=== PATIENT | male | born 1945 | race Caucasian/White ===

== ENCOUNTER → 2017-06-17 15:06 | Outpatient (POV) | payer MEDICARE, MEDICAID, SELFPAY | PROVIDERS: PCP Family Medicine; Visit Provider Internal Medicine | DX: Z00.00 Encounter for general adult medical examination without abnormal findings (principal) ==

== ENCOUNTER → 2017-07-15 12:08 | Outpatient (CLI) | payer MEDICARE, MEDICAID, SELFPAY ==
[2017-07-15 15:28] LABS: Basophils # 0.1 K/mm3 (0-0.2); Basophils % 0.8 % (0.1-2.0); Eosinophils # 0.1 K/mm3 (0.0-0.4); Hematocrit 50.8 % (42.0-52.0); Hemoglobin 16.1 g/dL (14.1-18.0); Lymphocytes % 32.5 K/mm3 (10-50); Mean Corpuscular HGB Conc 31.8 g/dL (31.8-35.4); Mean Corpuscular Hemoglobin 25.9 pg (27.0-31.2); Mean Corpuscular Volume 81.6 fl (80-94); Mean Platelet Volume 9.3 fl (7.4-10.4); Monocytes # 0.5 K/mm3 (0.1-1.0); Monocytes % 7.8 % (1.7-9.3); Neutrophils # 3.5 K/mm3 (1.8-7.8); Platelet Count 192 K/mm3 (142-424); Red Blood Count 6.23 M/mm3 (4.60-6.20); Red Cell Distribution Width 14.2 % (11.5-17.5)
[2017-07-15 16:26] LABS: Alanine Aminotransferase 52 U/L (12-78); Albumin Level 3.8 gm/dL (3.4-5.0); Alkaline Phosphatase 71 U/L (46-116); Anion Gap 11.5 mEq/L (5-15); Aspartate Amino Transferase 14 U/L (15-37); Bilirubin,Direct 0.1 mg/dL (0.0-0.2); Bilirubin,Total 0.5 mg/dL (0.2-1.0); Carbon Dioxide 29 mmol/L (21.0-32.0); Chloride 102 mmol/L (98-107); Chol/HDL Ratio 4.5 (1-3.5); Cholesterol 153 mg/dL (140-200); HDL Cholesterol 34 mg/dL (27-67); LDL Cholesterol 93 mg/dL (0-130); Potassium 4.5 mmoL/L (3.5-5.1); Prostate Specific Ag Screen 1.3 ng/mL (0.0-4.0); Sodium 138 mmol/L (136-145); Total Protein,Serum 7.3 gm/dL (6.4-8.2); Triglycerides 129 mg/dL (30-200); VLDL Cholesterol 26 mg/dL (0-40)
== END ==
PROVIDERS: Visit Provider Family Medicine
DX: I10 Essential (primary) hypertension (principal); E11.9 Type 2 diabetes mellitus without complications; R63.5 Abnormal weight gain; Z12.5 Encounter for screening for malignant neoplasm of prostate
CPT/HCPCS: 36415; 80051; 80061; 80076; 85025; G0103

== ENCOUNTER → 2017-09-04 15:48 | Outpatient (CLI) | payer MEDICARE, MEDICAID, SELFPAY ==
[2017-09-04 18:18] LABS: Anion Gap 12.3 mEq/L (5-15); Blood Urea Nitrogen 19 mg/dL (7-18); Carbon Dioxide 28 mmol/L (21.0-32.0); Chloride 107 mmol/L (98-107); Creatinine,Serum 1.07 mg/dL (0.70-1.30); Estimated Glomerular Filt Rate 68 ml/min (>60); GFR (African American) 82 ML/MIN (>60); Glucose 121 mg/dL (74-106); Potassium 4.3 mmoL/L (3.5-5.1); Sodium 143 mmol/L (136-145)
== END ==
PROVIDERS: Visit Provider Internal Medicine Cardiovascular Disease
DX: I25.10 Atherosclerotic heart disease of native coronary artery without angina pectoris (principal)
CPT/HCPCS: 36415; 80048

== ENCOUNTER → 2017-09-22 10:13 | Outpatient (CLI) | payer MEDICARE, MEDICAID, SELFPAY ==
--- NOTE | 2017-09-22 10:16 | CA_ITS ---
PROCEDURE: 2-D M-mode and color Doppler study INDICATIONS FOR THE TEST: Chest pain COPDX Heart Murmur Tobacco Smoking Palpitations Fatigue Syncope Edema HypertensionXDiabetes Mellitus Rheumatic Fever SOBXDOEXObesityXHyperlipidemiaX Family History HD Additional History CAD PATIENT INFORMATION HEIGHT: 69 WEIGHT:202 GENDER: Male B/P:136/69 2-D/M-MODE INTERPRETATION: TDS 2DARY TO COPD/BODY HABITUS 2-D MEASUREMENTS OBSERVED VALUES IN CMS Right Ventricular Dimension (RVDd) 2.0 Interventricular Septum (Thickness)(IVsd) 1.2 Left Ventricular Internal Dimensions(LVIDd 5.3 Left Ventricular Posterior Wall (Thickness)(LVPWd) 1.3 Aortic Root 4.7 Aortic Cusp Separation 2.3 Left Atrial Dimensions (LAD) 3.7 2D 1. Left atrium is mildly enlarged, left ventricle is normal size, mild concentric left ventricular hypertrophy, visually estimated ejection fraction 55% with no obvious regional wall motion abnormality, this is technically difficult study because of the patient's factor and poor acoustic windows, endocardial surfaces are poorly visualized. 2. The right atrium and right ventricle are qualitatively mildly enlarged with normal contractility. 3. The aortic valve is minimally thickened and fibrosed leaflet continue to display mobility. 4. The mitral and tricuspid valve leaflets are minimally thickened. 5. The pulmonic valve is poorly visualized. 6. No significant pericardial effusion noted. DOPPLER INTERROGATION: Doppler interrogation of the aortic, mitral and tricuspid valvular presence of mild mitral and tricuspid regurgitation, tricuspid regurgitant jet velocity is insufficient for calculation of the right ventricular systolic pressure, grade 1 diastolic dysfunction seen without tissue Doppler evidence of raised left atrial pressure. CONCLUSION: 1. Technically difficult study because of the patient's factor and poor acoustic windows 2. Mildly enlarged left atrium, normal left ventricular size, mild concentric left ventricular hypertrophy, visually estimated ejection fraction 55% with no obvious regional wall motion abnormality, grade 1 diastolic dysfunction seen without tissue Doppler evidence of raised left atrial pressure. 3. Mild mitral and tricuspid regurgitation 4. No significant pericardial effusion noted.
--- NOTE | 2017-09-22 10:16 | NM_ITS ---
CARDIOLITE SPECT MYOCARDIAL PERFUSION SCAN, REST AND STRESS: EXERCISE STRESS [facility] REVIEW QGS EF AND WALL MOTION EVALUATION: QPS - PERFUSION EVALUATION HISTORY: SOA DOSE: 9.65 mCi technetium 99m mibi intravenously at rest followed by 31.2 mCi technetium 99m mibi following the intravenous ministration of 0.4 mg of Lexiscan. Resting blood pressure is 130/62. Stress blood pressure 126/52. FINDINGS: Ejection fraction is calculated to be 53. Stress images reveal severely decreased activity throughout the entire inferior wall with no change in rest images. 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 Clinical correlation is advised. Normal ejection fraction normal wall motion.
--- NOTE | 2017-09-22 12:42 | HMH.ITSHM ---
EFFIENT ASA FENOFIBRATE GABAPENTIN METFORMIN ATORVASTATIN TAMSULOSIN PRESIVISION ADVAIR
== END ==
PROVIDERS: PCP Family Medicine; Visit Provider Internal Medicine
DX: R06.09 Other forms of dyspnea (principal); I25.10 Atherosclerotic heart disease of native coronary artery without angina pectoris; I10 Essential (primary) hypertension; E78.4 Other hyperlipidemia; R53.83 Other fatigue; J44.9 Chronic obstructive pulmonary disease, unspecified; G47.33 Obstructive sleep apnea (adult) (pediatric)
CPT/HCPCS: 78452; 93017; 93306; A9502; J2785

== ENCOUNTER → 2017-10-07 10:09 | Outpatient (POV) | payer MEDICARE, MEDICAID, SELFPAY | PROVIDERS: PCP Family Medicine; Visit Provider Internal Medicine | DX: Z00.00 Encounter for general adult medical examination without abnormal findings (principal) ==

== ENCOUNTER → 2017-10-14 10:14 | Outpatient (CLI) | payer MEDICARE, MEDICAID, SELFPAY ==
[2017-10-14 11:56] LABS: Alanine Aminotransferase 55 U/L (12-78); Albumin Level 4.1 gm/dL (3.4-5.0); Alkaline Phosphatase 72 U/L (46-116); Anion Gap 15.7 mEq/L (5-15); Aspartate Amino Transferase 20 U/L (15-37); Bilirubin,Direct 0.1 mg/dL (0.0-0.2); Bilirubin,Indirect 0.3 mg/dL (0.0-0.9); Bilirubin,Total 0.4 mg/dL (0.2-1.0); Blood Urea Nitrogen 29 mg/dL (7-18); Carbon Dioxide 26 mmol/L (21.0-32.0); Chloride 103 mmol/L (98-107); Chol/HDL Ratio 5.1 (1-3.5); Cholesterol 157 mg/dL (140-200); Creatinine,Serum 1.23 mg/dL (0.70-1.30); Estimated Glomerular Filt Rate 58 ml/min (>60); GFR (African American) 70 ML/MIN (>60); Glucose 249 mg/dL (74-106); HDL Cholesterol 31 mg/dL (27-67); LDL Cholesterol 93 mg/dL (0-130); Potassium 4.7 mmoL/L (3.5-5.1); Sodium 140 mmol/L (136-145); Total Protein,Serum 7.7 gm/dL (6.4-8.2); Triglycerides 164 mg/dL (30-200); VLDL Cholesterol 33 mg/dL (0-40)
== END ==
PROVIDERS: PCP Family Medicine; Visit Provider Internal Medicine Cardiovascular Disease
DX: I25.10 Atherosclerotic heart disease of native coronary artery without angina pectoris (principal); R06.00 Dyspnea, unspecified; I10 Essential (primary) hypertension; E78.5 Hyperlipidemia, unspecified; Z95.5 Presence of coronary angioplasty implant and graft
CPT/HCPCS: 36415; 80048; 80061; 80076

== ENCOUNTER 2017-10-21 12:53 | Outpatient (RCR) | payer MEDICARE, MEDICAID, SELFPAY | END 2018-08-20 13:25 | disposition home or self-care (01) | LOC: PT 12:53 | PROVIDERS: PCP Family Medicine; Visit Provider Internal Medicine | DX: I25.10 Atherosclerotic heart disease of native coronary artery without angina pectoris (principal); R06.00 Dyspnea, unspecified; I10 Essential (primary) hypertension; E78.5 Hyperlipidemia, unspecified; Z95.5 Presence of coronary angioplasty implant and graft ==

== ENCOUNTER → 2018-01-20 10:40 | Outpatient (POV) | payer MEDICARE, MEDICAID, SELFPAY ==
--- NOTE | 2018-01-20 12:19 | CT_ITS ---
CT chest wo con HISTORY: Chronic respiratory failure, follow-up pulmonary nodule, COPD ITS.REASON: NODULE PROTOCOL ORDERING PHYSICIAN: Arnie Graff MD PATIENT AGE: 72 years COMPARISON: 10/24/2016 Technique: Axial images obtained with sagittal and coronal reformats. All CT scans at the facility use one or more dose reduction, viz: automated exposure control, ma/kV adjustment per patient size (including targeted exams where dose is matched to indication, i.e. head), or iterative reconstruction technique. FINDINGS: No mediastinal or hilar mass evident. Coronary artery calcifications and/or stents are noted. There are small nodes in the mediastinum not significantly changed. No mediastinal or hilar mass or adenopathy is evident. A normal heart size. No evidence of pericardial effusion. No change in the 5 mm noncalcified nodule in the right upper lobe centrally. A small calcified nodules also present in the right upper lobe unchanged. There is stable small calcified nodule left upper lobe and apex. 5 mm noncalcified nodule is present in the left lobe posteriorly unchanged and there is a calcified nodule left upper lobe anteriorly and medially unchanged. No new nodules identified. There is hyperinflation with mild bronchial thickening consistent with obstructive chronic bronchitis with minimal fibrotic changes in the lung bases. No consolidation or collapse. No central obstructing lesions. Upper abdominal images show diverticulosis of the transverse colon and mild fatty liver. Bilateral adrenal nodules are once again noted not significantly changed consistent with adenomas. No acute bony anomalies. IMPRESSION: 1. Overall stable CT appearance of the chest. 2. No change small bilateral pulmonary nodules with obstructive chronic bronchitis 3. No change bilateral adrenal nodules
== END ==
PROVIDERS: PCP Family Medicine; Visit Provider Internal Medicine
DX: R91.1 Solitary pulmonary nodule (principal)
CPT/HCPCS: 71250

== ENCOUNTER → 2018-04-14 13:45 | Outpatient (POV) | payer MEDICARE, MEDICAID, SELFPAY | PROVIDERS: Visit Provider Dermatology | DX: Z00.00 Encounter for general adult medical examination without abnormal findings (principal) ==

== ENCOUNTER → 2018-04-28 10:33 | Outpatient (POV) | payer MEDICARE, MEDICAID, SELFPAY | PROVIDERS: Visit Provider Internal Medicine | DX: Z00.00 Encounter for general adult medical examination without abnormal findings (principal) ==

== ENCOUNTER → 2018-05-04 07:59 | Outpatient (CLI) | payer MEDICARE, MEDICAID, SELFPAY ==
[2018-05-04 08:16] LABS: Basophils # 0.1 K/mm3 (0-0.2); Basophils % 0.8 % (0.1-2.0); Eosinophils # 0.2 K/mm3 (0.0-0.4); Eosinophils % 2.6 % (0.1-12.0); Hematocrit 47.8 % (42.0-52.0); Hemoglobin 15.3 g/dL (14.1-18.0); Lymphocytes # 2.2 K/mm3 (0.7-4.5); Mean Corpuscular Hemoglobin 26.9 pg (27.0-31.2); Mean Corpuscular Volume 84.1 fl (80-94); Mean Platelet Volume 8.2 fl (7.4-10.4); Monocytes # 0.6 K/mm3 (0.1-1.0); Monocytes % 7.5 % (1.7-9.3); Neutrophils # 4.5 K/mm3 (1.8-7.8); Neutrophils % 60.1 % (37.0-80.0); Platelet Count 224 K/mm3 (142-424); Red Blood Count 5.69 M/mm3 (4.60-6.20); Red Cell Distribution Width 14.6 % (11.5-17.5); White Blood Count 7.4 K/mm3 (4.8-10.8)
[2018-05-04 08:48] LABS: Hemoglobin A1C 5.8 % (0.0-7.0)
[2018-05-04 08:57] LABS: Alanine Aminotransferase 33 U/L (12-78); Albumin Level 3.9 gm/dL (3.4-5.0); Alkaline Phosphatase 51 U/L (46-116); Anion Gap 11.2 mEq/L (5-15); Aspartate Amino Transferase 17 U/L (15-37); Bilirubin,Direct 0.1 mg/dL (0.0-0.2); Bilirubin,Indirect 0.2 mg/dL (0.0-0.9); Bilirubin,Total 0.3 mg/dL (0.2-1.0); Blood Urea Nitrogen 23 mg/dL (7-18); Calcium 8.9 mg/dL (8.5-10.1); Carbon Dioxide 27 mmol/L (21.0-32.0); Chloride 107 mmol/L (98-107); Cholesterol 136 mg/dL (140-200); Creatinine,Serum 1.19 mg/dL (0.70-1.30); Estimated Glomerular Filt Rate 60 ml/min (>60); Free Thyroxine Index 1.9 ug/dL (5.93-13.13); GFR (African American) 72 ML/MIN (>60); Glucose 112 mg/dL (74-106); HDL Cholesterol 34 mg/dL (27-67); LDL Cholesterol 75 mg/dL (0-130); Potassium 4.2 mmoL/L (3.5-5.1); Prostate Specific Ag, Diagnost 0.94 ng/mL (0.0-4.0); Sodium 141 mmol/L (136-145); Thyroid Stimulating Hormone 3.12 uIU/ml (0.358-3.740); Total Protein,Serum 7.3 gm/dL (6.4-8.2); Triglycerides 134 mg/dL (30-200); Triiodothryronine (T3) Uptake 32 % (31-39); VLDL Cholesterol 27 mg/dL (0-40)
== END ==
PROVIDERS: Visit Provider Internal Medicine Cardiovascular Disease
DX: R07.9 Chest pain, unspecified (principal); R06.09 Other forms of dyspnea; I25.10 Atherosclerotic heart disease of native coronary artery without angina pectoris; I10 Essential (primary) hypertension; E78.5 Hyperlipidemia, unspecified; J44.9 Chronic obstructive pulmonary disease, unspecified; E11.9 Type 2 diabetes mellitus without complications; Z79.84 Long term (current) use of oral hypoglycemic drugs
CPT/HCPCS: 36415; 80048; 80061; 80076; 83036; 84153; 84436; 84443; 84479; 85025

== ENCOUNTER → 2018-06-01 16:10 | Outpatient (CLI) | payer MEDICARE, MEDICAID, SELFPAY ==
[2018-06-01 17:05] LABS: Basophils # 0.1 K/mm3 (0-0.2); Basophils % 1.6 % (0.1-2.0); Eosinophils # 1.1 K/mm3 (0.0-0.4); Eosinophils % 12.6 % (0.1-12.0); Hematocrit 45.2 % (42.0-52.0); Hemoglobin 14.6 g/dL (14.1-18.0); Lymphocytes # 2.3 K/mm3 (0.7-4.5); Lymphocytes % 26.9 % (10-50); Mean Corpuscular HGB Conc 32.2 g/dL (31.8-35.4); Mean Corpuscular Hemoglobin 26.7 pg (27.0-31.2); Mean Corpuscular Volume 82.8 fl (80-94); Mean Platelet Volume 8.3 fl (7.4-10.4); Monocytes # 0.4 K/mm3 (0.1-1.0); Neutrophils # 4.6 K/mm3 (1.8-7.8); Platelet Count 231 K/mm3 (142-424); Red Blood Count 5.46 M/mm3 (4.60-6.20); Red Cell Distribution Width 14.8 % (11.5-17.5); White Blood Count 8.6 K/mm3 (4.8-10.8)
[2018-06-01 19:26] LABS: Alanine Aminotransferase 34 U/L (12-78); Albumin Level 3.9 gm/dL (3.4-5.0); Albumin/Globulin Ratio 1.2 (1.1-1.8); Alkaline Phosphatase 57 U/L (46-116); Anion Gap 16.3 mEq/L (5-15); Aspartate Amino Transferase 21 U/L (15-37); Bilirubin,Total 0.3 mg/dL (0.2-1.0); Blood Urea Nitrogen 16 mg/dL (7-18); Calcium 9.2 mg/dL (8.5-10.1); Carbon Dioxide 24 mmol/L (21.0-32.0); Chloride 106 mmol/L (98-107); Creatinine,Serum 1.13 mg/dL (0.70-1.30); Estimated Glomerular Filt Rate 63 ml/min (>60); GFR (African American) 77 ML/MIN (>60); Globulin 3.3 gm/dl (1.3-3.2); Glucose 125 mg/dL (74-106); Potassium 4.3 mmoL/L (3.5-5.1); Sodium 142 mmol/L (136-145); Total Protein,Serum 7.2 gm/dL (6.4-8.2)
== END ==
PROVIDERS: Visit Provider Otolaryngology
DX: K11.1 Hypertrophy of salivary gland (principal)
CPT/HCPCS: 36415; 80053; 85025

== ENCOUNTER → 2018-06-05 10:34 | Outpatient (CLI) | payer MEDICARE, MEDICAID, SELFPAY ==
--- NOTE | 2018-06-05 10:36 | CT_ITS ---
CT soft tissue neck w con Ordering Physician: Warern Medrano MD Patient Age: 72 years: Male HISTORY: ITS.Palpable mass right neck noted 3 weeks. No pain: Knot on right side of neck TECHNIQUE: Helical CT scanning performed through the neck following 75 cc Isovue-370 .. Axial sagittal and coronal reconstructions performed on CT workstation. All CT scans at this facility used one or more dose reduction techniques , viz: automatic exposure control, ma/Kv adjustment per patient's size, (including targeted exam where dose matched to the indication; i.e. head); or iterative reconstruction technique COMPARISON :No prior neck studies CT chest January 2018 & October 2016. Includes base of neck FINDINGS The palpable mass corresponds with a 3 cm AP, 4.4 cm length x 2.6 cm transverse discrete mass posterior the right submandibular gland, just below the angle of mandible. There is a thin enhancing margin of this solid mass.It does does yield mass effect indenting the posterior margin of the submandibular gland but favor is separate from it.- I doubt that the mass arises from the submandibular.This mass just lateral posterior tip of the hyoid on right. It is lateral and separate separate from carotid bifurcations. Calcified plaque seen at the carotid bifurcations bilaterally with generous calcified plaque continuing to the origin of right and left IAC. High-grade flow-limiting stenosis, estimated 90% stenosis at origin right ICA. ., (Sagittal image 25 axial 52-56) Tiny Patent lumen measures only 1 mm diameter axial image 54., Left bifurcation and ICA with calcified plaque present 50-60% stenosis at the left ICA. Mild Asymmetry & relative fullness at the base the tongue to the right extending down to the right healed asymmetry at right vallecula.-as noted on axial image 50, coronal image 23.. This would benefit from correlation & direct visualization by ENT. Although could reflect slightly asymmetric lymphoid tissue, at lingual tonsil cannot exclude associated pathology. Also question some mild asymmetry towards the right perinephric space at this same region. Axial image 43, 42. Otherwise only some small unimpressive scattered nodes are seen throughout the neck. Bilateral. Prominent facet hypertrophy to right at C2/3 Mild dextroscoliosis with Prominent multilevel degenerative changes and spondylosis throughout cervical spine. C2/3Prominent facet hypertrophy to right at C2/3 C3/4. Mild with mild bilateral Luschka joint hypertrophy most evident to the right. Mild right foraminal encroachment more so on the left. C 4/5. Marked disc space narrowing and osteophytic spurring posteriorly posterior right. Spinal stenosis and bilateral foraminal encroachment right greater than left. Also at C5/6 at C6/7 marked disc space narrowing. The posterior Disc/osteophyte features yield mild central canal stenosis and bilateral foraminal encroachment. . Chronic changes at the lung apices left more so than right. IMPRESSION: - 1. *Large discrete mass posterior to the right submandibular gland. Measures up to 4.4 cm in length. Well-defined with thin enhancing margin 2. Mild fullness at the base the tongue to the right yield mild asymmetry of vallecula. Generous lingual tonsil lymphoid tissue versus associated pathology. Warrants direct visualization 3.* High-grade right ICA carotid stenosis. Estimated over 90% stenosis right ICA origin Suggest duplex Doppler to support 4. Prominent cervical spondylosis & Degenerative disc changes. Yield multilevel spinal stenosis, most notable at C6/7 & C4/5
== END ==
PROVIDERS: PCP Family Medicine; Visit Provider Otolaryngology
DX: K11.1 Hypertrophy of salivary gland (principal)
CPT/HCPCS: 70491; Q9967

== ENCOUNTER → 2018-06-16 13:46 | Outpatient (CLI) | payer MEDICARE, MEDICAID, SELFPAY ==
--- NOTE | 2018-06-16 | CI_ITS ---
Cerebrovascular Exam Indications: Abnormal ct scan. IMPRESSIONS 1. The bilateral vertebral arteries are patent with normal antegrade flow. 2. Study suggests 50-69% stenosis involving the right internal carotid artery and the left internal carotid artery. Carotid duplex study. Complete study and Doppler flow study including spectral analysis, color and grimm scale imaging. Height: Height: 177.8cm. Height: 70in. Weight: Weight: 87.1kg. Weight: 191.6lb. Body mass index: BMI: 27.5kg/m^2. Body surface area: BSA: 2.09m^2. Location: Vascular laboratory. Patient status: Outpatient. CRITICAL FINDINGS - Reported to: Dr. Newby - Read back and verified. - 06/16/18 - 1415 - 50-69% bilateral.. Tables: Arterial flow: + +--------+--------+ Location V sys V ed + +--------+--------+ Right CCA - proximal 124cm/s 13.4cm/s + +--------+--------+ Right CCA - distal 104cm/s 14.1cm/s + +--------+--------+ Right ECA 188cm/s -------- + +--------+--------+ Right ICA - proximal 225cm/s 87cm/s + +--------+--------+ Right ICA - mid 57.4cm/s 13cm/s + +--------+--------+ Right ICA - distal 59.3cm/s 12.2cm/s + +--------+--------+ Right vertebral 54.2cm/s -------- + +--------+--------+ Left CCA - proximal 113cm/s 25.8cm/s + +--------+--------+ Left CCA - distal 115cm/s 22cm/s + +--------+--------+ Left ECA 129cm/s -------- + +--------+--------+ Left ICA - proximal 166cm/s 50.6cm/s + +--------+--------+ Left ICA - mid 162cm/s 54.1cm/s + +--------+--------+ Left ICA - distal 153cm/s 41cm/s + +--------+--------+ Left vertebral 64.1cm/s -------- + +--------+--------+ Velocity ratios: + + + + + + Right, V sys Right, V ed Left, V sys Left, V ed + + + + + + Max ICA/dist CCA 2.16 6.17 1.44 2.46 + + + + + + (Report amended ) Electronically signed by: Art Rosales [id number]
== END ==
PROVIDERS: PCP Family Medicine; Visit Provider Family Medicine
DX: I65.23 Occlusion and stenosis of bilateral carotid arteries (principal)
CPT/HCPCS: 93880

== ENCOUNTER → 2018-06-22 09:30 | Outpatient (CLI) | payer MEDICARE, MEDICAID, SELFPAY ==
--- NOTE | 2018-06-22 09:34 | US_ITS ---
1. US soft tissue head and neck,: 2. FNA guided biopsy right neck mass: ... FNA w guidance, ... US organ site (neck) Ordering Physician: Warren Medrano MD Patient Age: 72 years: Male HISTORY: 72-yr-old with right: Right NECK MASS COMPARISON :Previous CT neck 06/05/2018. FINDINGS AND PROCEDURE: ULTRASOUND SOFT TISSUE NECK. ULTRASOUND neck.; Large ovoid mass over 4.25 seem in length x 2.6 cm AP identified at the right neck.. Well-defined margins. Resides posterior to the right submandibular gland These images also determined the best approach for access to perform aspiration biopsy of this nodule. Scanning by technologist & Dr. Wong Submandibular glands were surveyed. Limited images here are unremarkable. Right submandibular gland over 4 cm length x2.5 cm AP. Left submandibular gland 3.9 cm cm in length x 2.4 cm AP Parotid glands were surveyed. With limited is here limited but no discrete mass. Left parotid measuring 3.8 cm in length.. ULTRASOUND-GUIDED FNA BIOPSY- RIGHT NECK MASS: Following sterile preparation as well as local skin, and cautious deeper placement of Xylocaine anesthetic ; Under ultrasound guidance the FNA biopsy needle, was advanced to the right neck mass.. Needle tip was observed passing into the nodule on each of multipleFNA biopsies passes. 5 passes were performed sampling slightly different areas of the mass.. FNA specimen material obtained and subsequently submitted to cytopathology. Also fluid for specifically for lymph node evaluation was submitted Patient tolerated procedure well. IMPRESSION: 1.. Prominent ovoid right neck mass measures up to 4.2 cm in length on ultrasound. Well-defined margins. 2. Successful ultrasound-guided FNA biopsy of the mass performed CYTOPATHOLOGY RESULTS:. Positive for malignancy. Squamous Cell Carcinoma.
== END ==
PROVIDERS: PCP Family Medicine; Visit Provider Otolaryngology
DX: R22.1 Localized swelling, mass and lump, neck (principal); G45.1 Carotid artery syndrome (hemispheric); K11.1 Hypertrophy of salivary gland; Z95.5 Presence of coronary angioplasty implant and graft
CPT/HCPCS: 10005; 76536; 87075; 88173; 88305; 88342

== ENCOUNTER 2018-08-11 10:46 | Outpatient (CLI) | payer MEDICARE, MEDICAID, SELFPAY ==
[2018-08-11] VITALS (13 sets, daily range): BP systolic 112–148; BP diastolic 73–88; PULSE 68–76; RESP 20; TEMP 36.8–37.1; O2SAT 95; BMI 27.8
[2018-08-11 11:21] LABS: Basophils # 0.1 K/mm3 (0-0.2); Eosinophils # 0.1 K/mm3 (0.0-0.4); Eosinophils % 1.5 % (0.1-12.0); Hematocrit 45.2 % (42.0-52.0); Lymphocytes # 1.5 K/mm3 (0.7-4.5); Lymphocytes % 26.3 % (10-50); Mean Corpuscular HGB Conc 33.3 g/dL (31.8-35.4); Mean Corpuscular Hemoglobin 27.3 pg (27.0-31.2); Mean Corpuscular Volume 82.1 fl (80-94); Mean Platelet Volume 7.9 fl (7.4-10.4); Monocytes # 0.4 K/mm3 (0.1-1.0); Monocytes % 6.7 % (1.7-9.3); Neutrophils # 3.8 K/mm3 (1.8-7.8); Neutrophils % 64.5 % (37.0-80.0); Platelet Count 231 K/mm3 (142-424); Red Cell Distribution Width 14.7 % (11.5-17.5); White Blood Count 5.9 K/mm3 (4.8-10.8)
[2018-08-11 11:37] LABS: Alanine Aminotransferase 22 U/L (12-78); Albumin/Globulin Ratio 1.1 (1.1-1.8); Alkaline Phosphatase 49 U/L (46-116); Anion Gap 17.1 mEq/L (5-15); Aspartate Amino Transferase 18 U/L (15-37); Bilirubin,Total 0.4 mg/dL (0.2-1.0); Blood Urea Nitrogen 12 mg/dL (7-18); Carbon Dioxide 21 mmol/L (21.0-32.0); Chloride 107 mmol/L (98-107); Creatinine Clearance Estimated 81 mL/min (50-200); Creatinine,Serum 0.97 mg/dL (0.70-1.30); Estimated Glomerular Filt Rate 76 ml/min (>60); GFR (African American) 92 ML/MIN (>60); Globulin 3.7 gm/dl (1.3-3.2); Glucose 99 mg/dL (74-106); Potassium 4.1 mmoL/L (3.5-5.1); Sodium 141 mmol/L (136-145); Total Protein,Serum 7.7 gm/dL (6.4-8.2)
== END 2018-08-11 18:15 | disposition home health service (06) ==
LOC: INF 10:46
PROVIDERS: Visit Provider Internal Medicine Medical Oncology
DX: Z51.11 Encounter for antineoplastic chemotherapy (principal); C76.0 Malignant neoplasm of head, face and neck
CPT/HCPCS: 80053; 85025; 96413; J9060; Q0166

== ENCOUNTER → 2018-08-28 14:02 | Outpatient (CLI) | payer MEDICARE, MEDICAID, SELFPAY ==
[2018-08-28 14:50] LABS: Basophils # 0.1 K/mm3 (0-0.2); Basophils % 0.8 % (0.1-2.0); Eosinophils # 0.1 K/mm3 (0.0-0.4); Eosinophils % 0.9 % (0.1-12.0); Hematocrit 45.2 % (42.0-52.0); Hemoglobin 15.4 g/dL (14.1-18.0); Lymphocytes % 17.6 % (10-50); Mean Corpuscular Hemoglobin 27.6 pg (27.0-31.2); Mean Corpuscular Volume 81.2 fl (80-94); Mean Platelet Volume 7.8 fl (7.4-10.4); Monocytes # 0.5 K/mm3 (0.1-1.0); Neutrophils # 4.2 K/mm3 (1.8-7.8); Neutrophils % 72.7 % (37.0-80.0); Platelet Count 228 K/mm3 (142-424); Red Blood Count 5.57 M/mm3 (4.60-6.20); Red Cell Distribution Width 14.6 % (11.5-17.5); White Blood Count 5.8 K/mm3 (4.8-10.8)
[2018-08-28 15:59] LABS: Alanine Aminotransferase 26 U/L (12-78); Albumin Level 4.2 gm/dL (3.4-5.0); Albumin/Globulin Ratio 1.2 (1.1-1.8); Alkaline Phosphatase 54 U/L (46-116); Anion Gap 16.2 mEq/L (5-15); Aspartate Amino Transferase 18 U/L (15-37); Bilirubin,Total 0.4 mg/dL (0.2-1.0); Blood Urea Nitrogen 25 mg/dL (7-18); Calcium 9.3 mg/dL (8.5-10.1); Carbon Dioxide 24 mmol/L (21.0-32.0); Chloride 103 mmol/L (98-107); Creatinine,Serum 1.21 mg/dL (0.70-1.30); Estimated Glomerular Filt Rate 59 ml/min (>60); GFR (African American) 71 ML/MIN (>60); Globulin 3.4 gm/dl (1.3-3.2); Glucose 110 mg/dL (74-106); Potassium 4.2 mmoL/L (3.5-5.1); Sodium 139 mmol/L (136-145); Total Protein,Serum 7.6 gm/dL (6.4-8.2)
== END ==
PROVIDERS: Visit Provider Internal Medicine Medical Oncology
DX: K11.1 Hypertrophy of salivary gland (principal)
CPT/HCPCS: 36415; 80053; 85025

== ENCOUNTER → 2018-09-04 11:57 | Outpatient (CLI) | payer MEDICARE, MEDICAID, SELFPAY ==
[2018-09-04] VITALS (11 sets, daily range): BP systolic 112–119; BP diastolic 55–78; PULSE 68–72; RESP 20; TEMP 36.9; O2SAT 95–98
== END ==
PROVIDERS: Visit Provider Internal Medicine Medical Oncology
DX: Z51.11 Encounter for antineoplastic chemotherapy (principal); C76.0 Malignant neoplasm of head, face and neck
CPT/HCPCS: 96361; 96413; J9060; Q0166

== ENCOUNTER → 2018-09-15 15:08 | Outpatient (POV) | payer MEDICARE, MEDICAID, SELFPAY | PROVIDERS: Visit Provider Internal Medicine | DX: Z00.00 Encounter for general adult medical examination without abnormal findings (principal) ==

== ENCOUNTER → 2018-09-17 14:39 | Outpatient (CLI) | payer MEDICARE, MEDICAID, SELFPAY ==
[2018-09-17 15:18] LABS: Basophils % 0.6 % (0.1-2.0); Eosinophils # 0.1 K/mm3 (0.0-0.4); Eosinophils % 1.1 % (0.1-12.0); Hematocrit 37.8 % (42.0-52.0); Lymphocytes # 0.7 K/mm3 (0.7-4.5); Lymphocytes % 15.6 % (10-50); Mean Corpuscular HGB Conc 34.3 g/dL (31.8-35.4); Mean Corpuscular Hemoglobin 27.8 pg (27.0-31.2); Mean Corpuscular Volume 80.9 fl (80-94); Mean Platelet Volume 7.8 fl (7.4-10.4); Monocytes # 0.4 K/mm3 (0.1-1.0); Monocytes % 7.8 % (1.7-9.3); Neutrophils # 3.4 K/mm3 (1.8-7.8); Neutrophils % 74.9 % (37.0-80.0); Platelet Count 194 K/mm3 (142-424); Red Blood Count 4.67 M/mm3 (4.60-6.20); Red Cell Distribution Width 14.7 % (11.5-17.5); White Blood Count 4.5 K/mm3 (4.8-10.8)
[2018-09-17 16:16] LABS: Alanine Aminotransferase 26 U/L (12-78); Albumin Level 3.9 gm/dL (3.4-5.0); Albumin/Globulin Ratio 1.2 (1.1-1.8); Alkaline Phosphatase 50 U/L (46-116); Anion Gap 12.4 mEq/L (5-15); Aspartate Amino Transferase 18 U/L (15-37); Bilirubin,Total 0.4 mg/dL (0.2-1.0); Blood Urea Nitrogen 25 mg/dL (7-18); Calcium 9.3 mg/dL (8.5-10.1); Carbon Dioxide 27 mmol/L (21.0-32.0); Chloride 103 mmol/L (98-107); Creatinine,Serum 1.12 mg/dL (0.70-1.30); Estimated Glomerular Filt Rate 64 ml/min (>60); GFR (African American) 78 ML/MIN (>60); Globulin 3.3 gm/dl (1.3-3.2); Glucose 79 mg/dL (74-106); Potassium 4.4 mmoL/L (3.5-5.1); Sodium 138 mmol/L (136-145); Total Protein,Serum 7.2 gm/dL (6.4-8.2)
== END ==
PROVIDERS: Visit Provider Internal Medicine Medical Oncology
DX: C01 Malignant neoplasm of base of tongue (principal)
CPT/HCPCS: 36415; 80053; 85025

== ENCOUNTER → 2018-09-23 07:07 | Outpatient (CLI) | payer MEDICARE, MEDICAID, SELFPAY ==
[2018-09-23] VITALS (7 sets, daily range): BP systolic 112–132; BP diastolic 56–74; PULSE 60–68; RESP 20; TEMP 36.9; O2SAT 95
[2018-09-23 07:33] LABS: Basophils % 0.6 % (0.1-2.0); Eosinophils # 0.1 K/mm3 (0.0-0.4); Eosinophils % 2.3 % (0.1-12.0); Hemoglobin 14.1 g/dL (14.1-18.0); Lymphocytes # 0.8 K/mm3 (0.7-4.5); Lymphocytes % 27.1 % (10-50); Mean Corpuscular HGB Conc 34.3 g/dL (31.8-35.4); Mean Corpuscular Hemoglobin 27.9 pg (27.0-31.2); Mean Corpuscular Volume 81.4 fl (80-94); Mean Platelet Volume 7.8 fl (7.4-10.4); Monocytes # 0.4 K/mm3 (0.1-1.0); Monocytes % 14.2 % (1.7-9.3); Neutrophils # 1.5 K/mm3 (1.8-7.8); Neutrophils % 55.8 % (37.0-80.0); Platelet Count 235 K/mm3 (142-424); Red Blood Count 5.03 M/mm3 (4.60-6.20); Red Cell Distribution Width 15.1 % (11.5-17.5); White Blood Count 2.8 K/mm3 (4.8-10.8)
[2018-09-23 08:02] LABS: Hemoglobin A1C 5.6 % (0.0-7.0)
[2018-09-23 08:25] LABS: Alanine Aminotransferase 27 U/L (12-78); Albumin Level 3.9 gm/dL (3.4-5.0); Albumin/Globulin Ratio 1.1 (1.1-1.8); Alkaline Phosphatase 57 U/L (46-116); Anion Gap 12.3 mEq/L (5-15); Aspartate Amino Transferase 15 U/L (15-37); Bilirubin,Total 0.5 mg/dL (0.2-1.0); Blood Urea Nitrogen 26 mg/dL (7-18); Calcium 9.5 mg/dL (8.5-10.1); Carbon Dioxide 28 mmol/L (21.0-32.0); Chloride 103 mmol/L (98-107); Chol/HDL Ratio 2.7 (1-3.5); Cholesterol 97 mg/dL (140-200); Creatinine,Serum 1.09 mg/dL (0.70-1.30); Estimated Glomerular Filt Rate 66 ml/min (>60); GFR (African American) 80 ML/MIN (>60); Globulin 3.5 gm/dl (1.3-3.2); Glucose 88 mg/dL (74-106); HDL Cholesterol 36 mg/dL (27-67); LDL Cholesterol 41 mg/dL (0-130); Potassium 4.3 mmoL/L (3.5-5.1); Sodium 139 mmol/L (136-145); Total Protein,Serum 7.4 gm/dL (6.4-8.2); Triglycerides 99 mg/dL (30-200); VLDL Cholesterol 20 mg/dL (0-40)
== END ==
PROVIDERS: Family Medicine; Visit Provider Internal Medicine Medical Oncology
DX: Z51.11 Encounter for antineoplastic chemotherapy (principal); C01 Malignant neoplasm of base of tongue; I10 Essential (primary) hypertension; E11.9 Type 2 diabetes mellitus without complications; Z79.84 Long term (current) use of oral hypoglycemic drugs; E78.2 Mixed hyperlipidemia
CPT/HCPCS: 36415; 80053; 80061; 83036; 85025; 96413; J9060; Q0166

== ENCOUNTER 2018-09-30 10:45 | Outpatient (CLI) | payer MEDICARE, MEDICAID, SELFPAY ==
[2018-09-30 10:55] VITALS: BP 131/56; PULSE 62; RESP 18; O2SAT 95
[2018-09-30 11:58] VITALS: BP 139/72; PULSE 68; RESP 18; O2SAT 98
== END 2018-09-30 12:00 | disposition home or self-care (01) ==
LOC: INF 10:59
PROVIDERS: Visit Provider Family Medicine
DX: C02.9 Malignant neoplasm of tongue, unspecified (principal)
CPT/HCPCS: 96360

== ENCOUNTER 2018-10-02 10:25 | Outpatient (CLI) | payer MEDICARE, MEDICAID, SELFPAY ==
[2018-10-02 11:00] VITALS: BP 116/62; PULSE 65; RESP 18; TEMP 36.5; O2SAT 95
[2018-10-02 11:30] VITALS: BP 135/65; PULSE 61; RESP 18
[2018-10-02 12:00] VITALS: BP 124/72; PULSE 60; RESP 18
== END 2018-10-02 12:05 | disposition home or self-care (01) ==
LOC: INF 10:50
PROVIDERS: Visit Provider Internal Medicine Medical Oncology
DX: C02.9 Malignant neoplasm of tongue, unspecified (principal)
CPT/HCPCS: 96360

== ENCOUNTER → 2018-11-18 08:05 | Outpatient (CLI) | payer MEDICARE, MEDICAID, SELFPAY ==
[2018-11-18 10:11] LABS: Anion Gap 12.2 mEq/L (5-15); Blood Urea Nitrogen 20 mg/dL (7-18); Calcium 8.5 mg/dL (8.5-10.1); Carbon Dioxide 26 mmol/L (21.0-32.0); Chloride 107 mmol/L (98-107); Chol/HDL Ratio 5.4 (1-3.5); Cholesterol 179 mg/dL (140-200); Creatinine,Serum 0.88 mg/dL (0.70-1.30); Estimated Glomerular Filt Rate 85 ml/min (>60); GFR (African American) 102 ML/MIN (>60); Glucose 87 mg/dL (74-106); HDL Cholesterol 33 mg/dL (27-67); LDL Cholesterol 119 mg/dL (0-130); Potassium 4.2 mmoL/L (3.5-5.1); Sodium 141 mmol/L (136-145); Triglycerides 135 mg/dL (30-200); VLDL Cholesterol 27 mg/dL (0-40)
[2018-11-18 10:58] LABS: Hemoglobin A1C 5.2 % (0.0-7.0)
== END ==
PROVIDERS: Visit Provider Family Medicine
DX: E11.9 Type 2 diabetes mellitus without complications (principal); Z79.84 Long term (current) use of oral hypoglycemic drugs; E78.2 Mixed hyperlipidemia; I10 Essential (primary) hypertension
CPT/HCPCS: 36415; 80048; 80061; 83036

== ENCOUNTER → 2018-12-01 13:09 | Outpatient (POV) | payer MEDICARE, MEDICAID, SELFPAY | PROVIDERS: Visit Provider Internal Medicine | DX: Z00.00 Encounter for general adult medical examination without abnormal findings (principal) ==

== ENCOUNTER → 2019-01-19 13:03 | Outpatient (CLI) | payer MEDICARE, MEDICAID, SELFPAY ==
--- NOTE | 2019-01-19 13:08 | XR_ITS ---
PROCEDURE: XR RIBS RT MIN 3V W CXR1V CLINICAL INDICATION: RT RIB PAIN COMPARISON: CXR CHEST(2 VIEWS-NOT PORTABLE) from 07/15/2014 CXR CHEST(2 VIEWS-NOT PORTABLE) from 08/23/2015 CXR CHEST(2 VIEWS-NOT PORTABLE) from 03/06/[address] chest wo con from 01/20/2018 FINDINGS: A frontal view of the chest shows no acute finding. There is an old left 7th rib fracture.. Multiple views of the right ribs were obtained. No acute findings. IMPRESSION: No acute finding. Old left 7th rib fracture. Dictated by: Art Rosales MD 01/19/2019 13:56 Signed by: <Electronically signed by Art Rosales MD in [place]> 01/19/2019 13:56
== END ==
PROVIDERS: PCP Family Medicine; Visit Provider Family Medicine
DX: R07.81 Pleurodynia (principal)
CPT/HCPCS: 71101

== ENCOUNTER → 2019-02-09 13:09 | Outpatient (POV) | payer MEDICARE, MEDICAID, SELFPAY | PROVIDERS: Visit Provider Internal Medicine | DX: Z00.00 Encounter for general adult medical examination without abnormal findings (principal) ==

== ENCOUNTER → 2019-03-02 11:50 | Outpatient (CLI) | payer MEDICARE, MEDICAID, SELFPAY ==
[2019-03-02 13:21] LABS: Chol/HDL Ratio 2.4 (1-3.5); Cholesterol 88 mg/dL (140-200); HDL Cholesterol 36 mg/dL (27-67); LDL Cholesterol 32 mg/dL (0-130); Triglycerides 100 mg/dL (30-200); VLDL Cholesterol 20 mg/dL (0-40)
== END ==
PROVIDERS: Visit Provider Family Medicine
DX: E78.2 Mixed hyperlipidemia (principal)
CPT/HCPCS: 36415; 80061

== ENCOUNTER → 2019-07-06 13:01 | Outpatient (CLI) | payer MEDICARE, MEDICAID, SELFPAY ==
--- NOTE | 2019-07-06 13:10 | XR_ITS ---
PROCEDURE: XR CHEST 2V CLINICAL HISTORY: BRONCHITIS COMPARISON: CXR CHEST(2 VIEWS-NOT PORTABLE) from 03/06/[address] chest wo con from 01/20/2018 XR RIBS RT MIN 3V W CXR1V from 01/19/2019 XR CHEST PORTABLE from 06/14/2019 FINDINGS: The cardiomediastinal silhouette and pulmonary vascularity are within normal limits. The lungs are clear without infiltrates, suspicious nodules, or pleural effusions. There is COPD. Subcentimeter nodule like opacities project symmetrically over both lung bases along midclavicular lines likely nipple shadows. They were not seen previously. Old fracture of left posterior 7th rib is noted. No acute bony abnormalities. IMPRESSION: No acute findings. Dictated by: Roland Rubalcava 07/06/2019 14:57 Electronically signed by Roland Rubalcava in [place] 07/06/2019 14:57
== END ==
PROVIDERS: PCP Family Medicine; Visit Provider Family Medicine
DX: J40 Bronchitis, not specified as acute or chronic (principal)
CPT/HCPCS: 71046

== ENCOUNTER 2019-07-16 15:00 | Outpatient (RCR) | payer MEDICARE, MEDICAID, SELFPAY ==
--- NOTE | 2019-05-05 11:54 | HMH.PTOPEV ---
PT Outpatient Evaluation Rehab PT Outpatient Evaluation Start: 05/05/19 11:25 Freq: Status: Active Protocol: Document 05/05/19 11:25 RENETTA (Rec: 05/05/19 11:54 RENETTA [id number]) Electronically Signed By Crow Grijalva, PT 05/05/19 11:25 Outpatient Therapy Subjective History Subjective History Pt presents w/generalized deconditioning secondary to intermediate designer chemo. and radiation treatments, as well as multiple CVA's, COPD, and asthma. Pt reports significant weight loss since beginning cx. treatment in May. Pt also reports chronic neck and LBP, and intermittent episodes of balance disturbances. Chief Complaint Pain,Weakness,Decreased Coordination Symptom Type Ache,Dull Symptoms Relieved By Rest/Positioning Symptoms Aggravated By Standing,Physical Activity, Walking Prior Functional Limitations Housework,Standing,Walking, Balance Current Functional Limitations Housework,Standing,Walking, Balance Symptom Description Intermittent Level of pain today (0-10) 4 Pain scale - at its best (0-10) 0 Pain scale - at its worst (0-10) 6 Shoulder/Elbow Eval Shoulder Objective Measurements Shoulder MMT Left Shoulder Abduction Strength Grade 4- Good- Shoulder Flexion Strength Grade 4- Good- Elbow Objective Measurements Elbow MMT Bilateral Elbow Flexion Strength Grade 4 Good Elbow Extension Strength Grade 4 Good Hip/Knee Eval MMT bilateral Hip Flexion Strength Grade 4- Good- Hip Abduction Strength Grade 4- Good- Hip Adduction Strength Grade 4- Good- Hip Extension Strength Grade 4- Good- Knee Extension Strength Grade 4 Good Knee Flexion Strength Grade 4 Good Tinetti Sitting Balance Sitting Balance Steady, safe Arising from Chair Ability to Arise Able, w/o using arms Attempts to Arise Arises on 1st attempt Standing Balance Immediate Standing Balance Steady w/o support Standing Balance Steady, wide stance Nudged Response Steady Standing with Eyes Closed Unsteady Turning Step Pattern Turning 360 Degrees Continuous steps Stability Turning 360 Degrees Steady Sitting Down Sitting Down Safe, steady Gait and Step Initiation of Gait No hesitancy Right Foot Step Length Does pass stance foot Right Foot Step Height
== END 2019-07-16 15:05 | disposition home or self-care (01) ==
LOC: PT 15:00
PROVIDERS: PCP Family Medicine; Visit Provider Internal Medicine Cardiovascular Disease
DX: I63.89 Other cerebral infarction (principal)
CPT/HCPCS: 97110; 97112; 97163; 97164

== ENCOUNTER → 2019-07-28 13:07 | Outpatient (CLI) | payer MEDICARE, MEDICAID, SELFPAY ==
[2019-07-28 14:48] LABS: Blood Urea Nitrogen 19 mg/dl (9-20); Estimated Glomerular Filt Rate 94 ml/min (>60); GFR (African American) 114 ML/MIN (>60)
== END ==
PROVIDERS: Visit Provider Family Medicine
DX: R10.9 Unspecified abdominal pain (principal); R63.4 Abnormal weight loss
CPT/HCPCS: 36415; 82565; 84520

== ENCOUNTER → 2019-07-29 12:02 | Outpatient (CLI) | payer MEDICARE, MEDICAID, SELFPAY ==
--- NOTE | 2019-07-29 12:19 | CT_ITS ---
PROCEDURE: CT ABDOMEN WO/W CON CLINICAL HISTORY: ABD PAIN, WGT LOSS History of head neck cancer COMPARISON: CHESTWO CT chest wo con from 01/20/2018 TECHNIQUE: Axial images are obtained without and with the intravenous administration 75 mL of Optiray 350 Axial images obtained with sagittal and coronal reformats. All CT scans at the facility use one or more dose reduction, viz: automated exposure control, ma/kV adjustment per patient size (including targeted exams where dose is matched to indication, i.e. head), or iterative reconstruction technique. FINDINGS: There is minimal thickening of the pericardium anteriorly. Coronary artery calcifications and/or stents noted the liver, gallbladder, spleen, and pancreas have an unremarkable appearance. There is nodularity of both adrenal glands which is nonspecific and not significantly changed from 01/20/2018 consistent with adenoma involvement. No renal or ureteral calculi. No hydronephrosis. No intestinal obstruction or free air. There is a mild amount of retained colonic feces. There is diverticulosis of the descending colon. The pelvis is not included on the exam. IMPRESSION: 1. No acute abdominal findings. 2. Stable bilateral adrenal enlargement. 3. Colonic diverticulosis Dictated by: Art Rosales MD 07/30/2019 11:08 Electronically signed by Art Rosales MD in [place] 07/30/2019 11:08
--- NOTE | 2019-07-29 13:11 | HMH.ITSHM ---
Current Home Medications as stated by this patient Bebeto Mari or commercial representative. []CLOPIDOGREL SILDENAFIL DRONABINOL TEMAZEPAM PARAXETINE LORAZEPAM LOSARTAN LEVOFLOXACIN TRAZODONE DIAZEPAM ATORVASTATIN AREDS 2 STOOL SOFTNER MULTIVITAMIN JANUMET
== END ==
PROVIDERS: PCP Family Medicine; Visit Provider Family Medicine
DX: R10.9 Unspecified abdominal pain (principal); R63.4 Abnormal weight loss
CPT/HCPCS: 74170; Q9967

== ENCOUNTER → 2019-09-10 14:52 | Outpatient (CLI) | payer MEDICARE, MEDICAID, SELFPAY ==
[2019-09-10 17:44] LABS: Prostate Specific Ag Screen 1.5 ng/ml (0.0-4.0)
== END ==
PROVIDERS: Visit Provider Urology
DX: Z12.5 Encounter for screening for malignant neoplasm of prostate (principal)
CPT/HCPCS: 36415; G0103

== ENCOUNTER → 2019-09-28 13:06 | Outpatient (CLI) | payer MEDICARE, MEDICAID, SELFPAY ==
--- NOTE | 2019-09-28 13:06 | CA_ITS ---
APPROVED REPORT EXAM: Comprehensive 2D, Doppler, and color-flow Echocardiogram [employer] Machine Operator: Va Rizo CRT Ht: 5 ft 10 in Wt: 141lbs BSA: 1.80 BP: 119/61 mmHg Indications: COPD, Shortness of Breath, CVA/TIA, CAD, Hyperlipidemia, Hypertension/HDD 2D Dimensions LVOT 1.89 cm (M/F) 1.5-2.5 M-Mode Dimensions RVDd 3.13 cm (0.9-2.6) LVDd 4.73 cm (3.5-5.7) LVDs 2.99 cm (3.5-5.7) IVSd 1.25 cm (0.6-1.1) PWd 0.67 cm (0.6-1.1) EF (Teich) 66.60% FS 36.80% EDV (Teich) 103.90 mL ESV (Teich) 34.70 mL LV Diastology E/A Ratio 0.91 Mitral Valve MV A Velocity 80.00 (40-130 cm/s) Left Ventricle Left atrium is mildly enlarged, left ventricle is normal size, mild concentric left ventricular hypertrophy, visually estimated ejection fraction 55% with no regional wall motion abnormality. Grade 2 diastolic dysfunction seen without tissue Doppler evidence of raise left atrial pressure. Right Ventricle Right atrium and right ventricle mildly enlarged with normal contractility. Aortic Valve Aortic valve is minimally thickened and fibrosed leaflet continue to display mobility, there is no aortic stenosis, there is trace aortic insufficiency. Mitral Valve Mitral valve leaflets are minimally thickened, there is mild mitral regurgitation. Tricuspid Valve Tricuspid valve is grossly normal, there is mild tricuspid regurgitation. Tricuspid regurgitation jet velocity is inadequate for calculation of the right ventricular systolic pressure. Pulmonic Valve Pulmonic valve is poorly visualized. Great Vessels Aortic root is normal size. Pericardium No significant pericardial effusion noted. Conclusion 1. Atrial enlargement, normal left ventricular size, mild concentric left ventricular hypertrophy, visually estimated ejection fraction 55% with no regional wall motion abnormality, grade 2 diastolic dysfunction seen without tissue Doppler evidence of raise left atrial pressure. 2. Mildly enlarged right ventricle with normal contractility. 3. Mild mitral and tricuspid regurgitation. 4. No significant pericardial effusion noted. Electronically signed by : Cb Witt, 09/28/2019 18:40:42
== END ==
PROVIDERS: PCP Family Medicine; Visit Provider Internal Medicine Cardiovascular Disease
DX: I20.8 Other forms of angina pectoris; E78.5 Hyperlipidemia, unspecified; I10 Essential (primary) hypertension; I63.9 Cerebral infarction, unspecified; I65.29 Occlusion and stenosis of unspecified carotid artery; R06.00 Dyspnea, unspecified
CPT/HCPCS: 93306

== ENCOUNTER 2019-11-04 15:54 | Emergency (ER) | payer MEDICARE, MEDICAID, SELFPAY ==
[2019-11-04 15:55] VITALS: BP 152/55; PULSE 78; RESP 20; O2SAT 99; BMI 25.0
--- NOTE | 2019-11-04 15:55 | PC.NURSE ---
FSBS 103
--- NOTE | 2019-11-04 16:00 | PC.NURSE ---
Pt to rad.
--- NOTE | 2019-11-04 16:01 | PC.NURSE ---
Manual 152/74 left arm
--- NOTE | 2019-11-04 16:02 | CT_ITS ---
PROCEDURE: CT HEAD/BRAIN WO CON CLINICAL INDICATION: Stroke Symptoms Altered mental status, altered level of consciousness, confusion, disorientation COMPARISON: CT HEAD/BRAIN WO CON from 06/14/2019 TECHNIQUE: Axial images obtained. All CT scans at the facility use one or more dose reduction, viz: automated exposure control, ma/kV adjustment per patient size (including targeted exams where dose is matched to indication, i.e. head), or iterative reconstruction technique. FINDINGS: No midline shift, mass effect, intracranial hemorrhage, hydrocephalus, or extra-axial fluid collection is evident. There is generalized atrophy with hypoattenuation of the periventricular white matter consistent with microangiopathic changes.. Encephalomalacia changes are present involving the right frontal lobe posteriorly, right temporal lobe anteriorly, and right parietal lobe anteriorly consistent with an old infarction. The calvarium has an unremarkable appearance. No mastoid effusion. There is mild mucosal thickening of the ethmoid sinuses IMPRESSION: 1. No acute intracranial findings. 2. Atrophy with encephalomalacia changes in the right frontal parietal temporal junction Dictated by: Art Rosales MD 11/04/2019 16:17 Electronically signed by Art Rosales MD in [facility] 11/04/2019 16:17
--- NOTE | 2019-11-04 16:08 | PC.NURSE ---
Pt returned from rad.
[2019-11-04 16:13] LABS: Basophils % 0.7 % (0.1-2.0); Eosinophils # 0.1 K/mm3 (0.0-0.4); Hemoglobin 14.6 g/dL (14.1-18.0); Lymphocytes # 1.3 K/mm3 (0.7-4.5); Mean Corpuscular HGB Conc 34.8 g/dL (31.8-35.4); Mean Corpuscular Hemoglobin 29.8 pg (27.0-31.2); Mean Corpuscular Volume 85.7 fl (80-94); Mean Platelet Volume 7.5 fl (7.4-10.4); Monocytes # 0.5 K/mm3 (0.1-1.0); Monocytes % 7.9 % (1.7-9.3); Neutrophils # 3.9 K/mm3 (1.8-7.8); Neutrophils % 67.4 % (37.0-80.0); Platelet Count 218 K/mm3 (142-424); Red Cell Distribution Width 14.1 % (11.5-17.5); White Blood Count 5.8 K/mm3 (4.8-10.8)
[2019-11-04 16:15] LABS: Chloride 107 mmol/L (98-107); Potassium 4.2 mmoL/L (3.5-5.1); Sodium 140 mmol/L (136-145)
[2019-11-04 16:17] LABS: Blood Urea Nitrogen 18 mg/dl (9-20); Creatinine Clearance Estimated 68 mL/min (50-200); Estimated Glomerular Filt Rate 73 ml/min (>60); GFR (African American) 88 ML/MIN (>60)
[2019-11-04 16:18] LABS: Alanine Aminotransferase 16 U/L (12-78); Albumin Level 4.3 g/dl (3.5-5.0); Albumin/Globulin Ratio 1.4 (1.1-1.8); Alkaline Phosphatase 74 U/L (38-126); Anion Gap 11.2 mEq/L (5-15); Aspartate Amino Transferase 22 U/L (17-59); Bilirubin,Total 0.4 mg/dl (0.2-1.3); Calcium 9.1 mg/dl (8.4-10.2); Carbon Dioxide 26 mmol/L (22.0-30.0); Globulin 3.1 g/dL (1.3-3.2); Glucose 96 mg/dl (74-100); Total Protein,Serum 7.4 g/dl (6.3-8.2)
--- NOTE | 2019-11-04 16:29 | PC.NURSE ---
Rafat Pandya calling [facility] at this time.
[2019-11-04 16:33] LABS: Troponin I < 0.01 ng/ml (0.00-0.034)
[2019-11-04 16:34] LABS: INR 0.96 (0.9-1.1); Prothrombin Time 9.9 seconds (9.4-11.8)
--- NOTE | 2019-11-04 16:38 | PC.NURSE ---
Dr Price speaking with Dr Aguilar at this time.
--- NOTE | 2019-11-04 16:49 | PC.NURSE ---
wants pt to go to [facility] stroke team by air. called [facility] they declined for weather but they are calling [facility] at this time.
[2019-11-04 16:50] VITALS: BP 119/59; PULSE 63; O2SAT 96
--- NOTE | 2019-11-04 16:54 | HMH.EDNEU ---
ED Disposition Clinical Impression: Cerebrovascular accident Disposition: Xfer Short-Term Hosp Condition on Discharge: Good Referrals: Provider,Referral, [Primary Care Provider] - - Critical Care Critical Care Time: Yes Attestation: On 11/04/19, the high probability of a clinically significant, sudden or life threatening deterioration of the following system(s) required my full and direct attention, intervention and personal management. The time I documented below is in addition to time spent performing reported procedures but includes the following listed in this critical care notation. Total Critical Care Time: 45 Vital system(s) involved:: Central Nervous System My critical care processes included: Assessment & monitoring of V/S, Initial and Re-exams, Data Review/Interpretation, Coordinating Care, Medication Orders and management, Documentation Medical Decision Making - Medical Records Medical records reviewed: Yes: I reviewed the patient's medical records. - Magdy Inquiry Pt receiving controlled substance: No Vital Signs: 11/04/19 15:55 11/04/19 16:50 Pulse Rate [Radial] 78 63 Respiratory Rate 20 Blood Pressure [Right Arm] 152/55 H 119/59 L Blood Pressure Mean [Right Arm] 87 79 Blood Pressure Source [Right Arm] Automatic Cuff Automatic Cuff Blood Pressure Position [Right Arm] Sitting Sitting 02 Sat by Pulse Oximetry 99 96 Oxygen Delivery Method Room Air Room Air - Lab Data Lab results reviewed: Yes: I reviewed the patient's lab results. Lab Results 11/04/19 15:56: WBC 5.8, RBC 4.90, Hgb 14.6, Hct 42.0, MCV 85.7, MCH 29.8, MCHC 34.8, RDW 14.1, Plt Count 218, MPV 7.5, Neut % (Auto) 67.4, Lymph % (Auto) 22.0, [place] % (Auto) 7.9, Eos % (Auto) 2.0, Baso % (Auto) 0.7, Neut # (Auto) 3.9, Lymph # (Auto) 1.3, [place] # (Auto) 0.5, Eos # (Auto) 0.1, Baso # (Auto) 0.0 11/04/19 15:56: PT 9.9, INR 0.96 11/04/19 15:56: Sodium 140, Potassium 4.2, Chloride 107, Carbon Dioxide 26, Anion Gap 11.2, BUN 18, Creatinine 1.00, Estimated Creat Clear 68, Estimated GFR 73, Est GFR ( Amer) 88, Glucose 96, Calcium 9.1, Total Bilirubin 0.4, AST 22, ALT 16, Alkaline Phosphatase 74, Troponin I < 0.01, Total Protein 7.4, Albumin 4.3, Globulin 3.1, Albumin/Globulin Ratio 1.4 Result diagrams: 11/04/19 15:56 11/04/19 15:56 Orders (Tests/Meds): ED MEDICATIONS Discontinued Medications Generic Name Dose Route Start Last Admin Trade Name Pasha PRN Reason Stop Dose Admin Alteplase, Recombinant 0 mg 11/04/19 16:30 Tpa 100mg Vial IV 11/04/19 16:31 DIRECTED ONE ORDERS Category Date Time Status Troponin I Q3H Lab 11/04/19 19:15 Ordered Troponin I Q3H Lab 11/04/19 22:15 Ordered - CT Data CT Scan: Head Time Received: 16:00 Preliminary Findings: Normal/NAD Medical Decision Narrative: Talk to Dr. Molina at [facility] she agreed to go ahead and give TPA as. Patient is going to be sent to to the stroke unit. Neuro HPI - General Chief Complaint: Neuro Symptoms/Deficit Stated Complaint: stroke symptoms Time Seen by Provider: 11/04/19 16:54 Mode of Arrival: Ambulatory Source of Information: Patient Limitations: No Limitations Description of Symptoms (Recalled from ER Triage Doc. by RN): While getting an eye exam the doctor noticed the patient had a droopy right eye and mouth. Patient drove himself to the emergency room. Patient does have right sided facial droop from the mouth to the eye. - History of Present Illness HPI Narrative: 73-year-old male presents the ED with acute onset of neurological symptoms. He states the symptoms just started right prior to arrival. He states he noticed some pain in the left eye yesterday but around 3:15 PM Eastern standard time today he noticed that he was having some difficulty swallowing and difficulty spitting. His also stated that he was having some dysarthria as well. Now he is unable to close the right eye and does have righ
[2019-11-04 17:15] VITALS: BP 134/77; PULSE 64; O2SAT 98
[2019-11-04 17:37] VITALS: BP 138/73; PULSE 64; O2SAT 96
[2019-11-04 17:59] VITALS: BP 138/73; PULSE 64; RESP 18; TEMP 36.9; O2SAT 96
[2019-11-04 18:00] VITALS: BP 138/73; PULSE 64; RESP 18; TEMP 36.9; O2SAT 96
[2019-11-05 08:38] LABS: POC Glucose,Bedside 103 (70-110)
== END 2019-11-04 18:00 | disposition short-term general hospital (02) ==
PROVIDERS: Emergency Provider Family Medicine; PCP Family Medicine
DX: I63.89 Other cerebral infarction (principal); R29.810 Facial weakness; R47.1 Dysarthria and anarthria; I10 Essential (primary) hypertension; R29.706 NIHSS score 6; E11.9 Type 2 diabetes mellitus without complications; J44.9 Chronic obstructive pulmonary disease, unspecified; I25.10 Atherosclerotic heart disease of native coronary artery without angina pectoris; Z86.73 Personal history of transient ischemic attack (TIA), and cerebral infarction without residual deficits
CPT/HCPCS: 70450; 80053; 82962; 84484; 85025; 85610; 96365; 99284; J2997

== ENCOUNTER → 2020-03-21 16:03 | Outpatient (CLI) | payer MEDICARE, MEDICAID, SELFPAY ==
[2020-03-21 17:06] LABS: Basophils # 0.1 K/mm3 (0-0.2); Basophils % 1.8 % (0.1-2.0); Eosinophils # 0.1 K/mm3 (0.0-0.4); Eosinophils % 2.5 % (0.1-12.0); Hematocrit 49.7 % (42.0-52.0); Hemoglobin 16.3 g/dL (14.1-18.0); Lymphocytes % 23.1 % (10-50); Mean Corpuscular HGB Conc 32.8 g/dL (31.8-35.4); Mean Corpuscular Hemoglobin 27.3 pg (27.0-31.2); Mean Corpuscular Volume 83.4 fl (80-94); Mean Platelet Volume 7.9 fl (7.4-10.4); Monocytes # 0.4 K/mm3 (0.1-1.0); Monocytes % 9.2 % (1.7-9.3); Neutrophils # 2.8 K/mm3 (1.8-7.8); Neutrophils % 63.3 % (37.0-80.0); Platelet Count 248 K/mm3 (142-424); Red Blood Count 5.96 M/mm3 (4.60-6.20); Red Cell Distribution Width 14.4 % (11.5-17.5); White Blood Count 4.4 K/mm3 (4.8-10.8)
[2020-03-21 17:42] LABS: Hemoglobin A1C 5.3 % (4.0-6.0)
[2020-03-21 17:59] LABS: Alanine Aminotransferase 18 U/L (12-78); Albumin Level 4.4 g/dl (3.5-5.0); Albumin/Globulin Ratio 1.5 (1.1-1.8); Alkaline Phosphatase 78 U/L (38-126); Anion Gap 12.8 mEq/L (5-15); Aspartate Amino Transferase 23 U/L (17-59); Bilirubin,Total 0.7 mg/dl (0.2-1.3); Blood Urea Nitrogen 17 mg/dl (9-20); Calcium 9.7 mg/dl (8.4-10.2); Carbon Dioxide 28 mmol/L (22.0-30.0); Chloride 106 mmol/L (98-107); Chol/HDL Ratio 5.2 (1-3.5); Cholesterol 198 mg/dl (140-200); Estimated Glomerular Filt Rate 59 ml/min (>60); GFR (African American) 71 ML/MIN (>60); Globulin 2.9 g/dL (1.3-3.2); Glucose 89 mg/dl (74-100); HDL Cholesterol 38 mg/dl (40-60); Potassium 4.8 mmoL/L (3.5-5.1); Sodium 142 mmol/L (136-145); Total Protein,Serum 7.3 g/dl (6.3-8.2); Triglycerides 158 mg/dl (30-150); VLDL Cholesterol 32 mg/dL (0-40)
[2020-03-21 18:10] LABS: Direct LDL Cholesterol 128.47 mg/dL (100-129)
[2020-03-21 18:28] LABS: Prostate Specific Ag Screen 0.8 ng/ml (0.0-4.0)
== END ==
PROVIDERS: Visit Provider Family Medicine
DX: E11.9 Type 2 diabetes mellitus without complications (principal); E78.2 Mixed hyperlipidemia; I10 Essential (primary) hypertension; Z12.5 Encounter for screening for malignant neoplasm of prostate; Z79.84 Long term (current) use of oral hypoglycemic drugs
CPT/HCPCS: 36415; 80053; 80061; 83036; 85025; G0103

== ENCOUNTER → 2020-05-31 11:37 | Outpatient (CLI) | payer MEDICARE, MEDICAID, SELFPAY ==
[2020-05-31 12:05] LABS: Basophils # 0.1 K/mm3 (0-0.2); Basophils % 1.7 % (0.1-2.0); Eosinophils # 0.2 K/mm3 (0.0-0.4); Eosinophils % 3.5 % (0.1-12.0); Hematocrit 53.2 % (42.0-52.0); Hemoglobin 17.4 g/dL (14.1-18.0); Lymphocytes # 1.3 K/mm3 (0.7-4.5); Lymphocytes % 22.2 % (10-50); Mean Corpuscular HGB Conc 32.6 g/dL (31.8-35.4); Mean Corpuscular Hemoglobin 27.5 pg (27.0-31.2); Mean Corpuscular Volume 84.2 fl (80-94); Mean Platelet Volume 8.3 fl (7.4-10.4); Monocytes # 0.4 K/mm3 (0.1-1.0); Monocytes % 7.6 % (1.7-9.3); Neutrophils # 3.8 K/mm3 (1.8-7.8); Neutrophils % 65.1 % (37.0-80.0); Platelet Count 240 K/mm3 (142-424); Red Blood Count 6.32 M/mm3 (4.60-6.20); Red Cell Distribution Width 15.3 % (11.5-17.5); White Blood Count 5.9 K/mm3 (4.8-10.8)
--- NOTE | 2020-05-31 12:13 | ECG_ITS ---
APPROVED REPORT Exam: Resting ECG HR:72 bpm ECG Measurements Heart Rate 72 AXES MT 170 P 74 QRSd 94 QRS 46 QT 386 T 39 QTc 422 Conclusion Normal sinus rhythm Normal ECG Electronically signed by : Mustapha Scherer, 06/01/2020 19:28:42
[2020-05-31 12:24] LABS: Alanine Aminotransferase 23 U/L (12-78); Albumin Level 4.4 g/dl (3.5-5.0); Albumin/Globulin Ratio 1.4 (1.1-1.8); Alkaline Phosphatase 78 U/L (38-126); Anion Gap 12.1 mEq/L (5-15); Aspartate Amino Transferase 25 U/L (17-59); Bilirubin,Total 0.7 mg/dl (0.2-1.3); Blood Urea Nitrogen 14 mg/dl (9-20); Calcium 9.6 mg/dl (8.4-10.2); Carbon Dioxide 26 mmol/L (22.0-30.0); Chloride 106 mmol/L (98-107); Estimated Glomerular Filt Rate 65 ml/min (>60); GFR (African American) 79 ML/MIN (>60); Globulin 3.2 g/dL (1.3-3.2); Glucose 125 mg/dl (74-100); Potassium 4.1 mmoL/L (3.5-5.1); Sodium 140 mmol/L (136-145); Total Protein,Serum 7.6 g/dl (6.3-8.2)
[2020-05-31 12:31] LABS: Coronavirus 19 IgG Antibody Negative (Negative); Coronavirus 19 IgM Antibody Negative (Negative)
== END ==
PROVIDERS: Visit Provider Otolaryngology
DX: Z01.812 Encounter for preprocedural laboratory examination (principal); Z11.52 Encounter for screening for COVID-19; J34.2 Deviated nasal septum; H93.13 Tinnitus, bilateral; H91.93 Unspecified hearing loss, bilateral; I10 Essential (primary) hypertension
CPT/HCPCS: 36415; 80053; 85025; 86328; 93005

== ENCOUNTER 2020-06-01 07:34 | Day surgery (SDC) | payer MEDICARE, MEDICAID, SELFPAY ==
[2020-05-29 15:40] VITALS: BMI 25.1
[2020-06-01] VITALS (9 sets, daily range): BP systolic 145–156; BP diastolic 69–93; PULSE 72–81; RESP 12–20; TEMP 36.1–36.4; O2SAT 94–100
--- NOTE | 2020-06-01 09:09 | HMH.ANESCL ---
[facility] Anesthesia Checklist - Patient Identification Patient Identification: Arm Band - Structural Data Planned Operative Procedure/s: septoplasty Consent for Planned Operative Procedure(s) Verified: Yes Verified Documents: Surgical Consent, History and Physical (non) - NPO Status Verified Time NPO: 00:00 - Additional verifications Anesthesia Reactions: No Hx Blood Transfusions: No Blood Transfusion Reaction: No - Airway Assessment Dentition: Partials - Neurological Assessment Level of Consciousness: Awake Hx Seizures: No Numbness or tingling in extremities: No - Anesthesia Plan Anesthesia Risk discussed: Yes ASA Class: III Anesthesia Type: General - Preoperative Comments Pre-Operative Comments: non [facility] History I have reviewed the patient's past medical history: Yes Medical History: Reports:: Asthma, Cancer, Carotid Stenosis, Chronic Obstructive Pulmonary Disease (COPD), Coronary Artery Disease, Cerebrovascular Accident, Diabetes Mellitus Type 2, Hyperlipidemia, Hypertension, Lung Disease Denies:: Diabetes Mellitus Type 1, Internal Pacemaker, MRSA, Seizures *Have you ever received a pneumonia vaccine?: No *Have you received a flu vaccine this season?: No Other Medical History: Reports: Arthritis, Other. Denies: Blood Transfusion Reaction Anesthesia experience/problems:: non Laterality Cases: Bilateral: Tonsillectomy, Other Other Surgeries: Yes: No Previous Surgery, Cancer Surgery, Cardiac Catheterization, Cardiac Surgery, Colonoscopy, Coronary Stent, Hernia Repair, Skin Cancer Excision, Other. No: Pacemaker Amputation: No Fractures: No - *Social History Smoking Status: Former smoker Alcohol Intake: never Alcohol Intake Frequency:: other Substance Use Type: denies use *Occupational Status:: employed Housing: house Household Members: none *Travel in the last 8 weeks: None Family Hx:: Non-contributory
--- NOTE | 2020-06-01 11:31 | P.OP_ITS ---
Date of procedure: 06/01/20 Pre-op Diagnosis:: Deviated nasal septum with 90% nasal airflow blockage Post-op Diagnosis:: Same Procedure performed:: Nasal Septoplasty Surgeon:: Warren Medrano MD RACK CARRIER:: Other Anesthesia: GETA Estimated blood loss (mL): 10 Operative findings:: N/a Operative note:: With the patient under general anesthesia the face was prepped and draped the eyes were protected with Steri-Strips the nose was decongested with topical cocaine and 5 cc of 2% lidocaine with epi were injected into the nasal septum. There was a fracture dislocation of the nasal septum to the left anteriorly and to the right posteriorly. A left hemitransfixion incision was made in the mucoperichondrium and mucoperiosteum was elevated from both sides of the nasal septum. The quadrangular cartilage was trimmed anteriorly and inferiorly and the quadrangular cartilage was relocated in the midline. Surgicel snow was placed in between the flaps. And transfixion and hemitransfixion sutures were used to hold the septum in the midline. Both inferior turbinates were hyperplastic and they were fractured and electrocoagulated. Blood loss for all the procedure was 10 cc and completely stopped. Patient tolerated the procedure well and was sent to recovery in good general condition. Condition: stable Disposition: PACU Complications:: None
== END 2020-06-01 11:01 | disposition home or self-care (01) ==
LOC: OR 07:37
PROVIDERS: PCP Family Medicine; Visit Provider Otolaryngology
PROC: (CPT 30520; principal; 2020-06-01 09:00)
DX: J34.2 Deviated nasal septum (principal); I65.29 Occlusion and stenosis of unspecified carotid artery; J44.9 Chronic obstructive pulmonary disease, unspecified; I25.10 Atherosclerotic heart disease of native coronary artery without angina pectoris; Z86.73 Personal history of transient ischemic attack (TIA), and cerebral infarction without residual deficits; E11.9 Type 2 diabetes mellitus without complications; E78.5 Hyperlipidemia, unspecified; I10 Essential (primary) hypertension; M19.90 Unspecified osteoarthritis, unspecified site; G47.33 Obstructive sleep apnea (adult) (pediatric); Z79.899 Other long term (current) drug therapy; Z87.891 Personal history of nicotine dependence
CPT/HCPCS: 30520; 96374; J2405

== ENCOUNTER 2020-09-04 14:01 | Emergency (ER) | payer MEDICARE, MEDICAID, SELFPAY ==
[2020-09-04 14:44] VITALS: RESP 16; TEMP 36.7; O2SAT 99; BMI 25.8
--- NOTE | 2020-09-04 14:47 | HMH.EDUTC ---
[facility] [place] Clinical Impression: Laceration of left index finger Qualifiers: Encounter type: initial encounter Damage to nail status: without damage Foreign body presence: without foreign body Qualified Code(s): S61.211A - Laceration without foreign body of left index finger without damage to nail, initial encounter Disposition: Home, Self-Care Condition on Discharge: Good Instructions: How to Care for a Laceration Prior to Repair, DI for Laceration Repair -- Simple Additional Instructions: Keep the wound clean and dry. Keep a dressing on it if you are going to be getting it dirty. Watch the for signs of infection, such as redness, swelling, drainage, fever. etc. Take tylenol or ibuprofen for pain. Follow up with your regular doctor. Return in10 days to have the sutures removed. GO TO THE ER FOR ANY WORSENING SYMPTOMS OR CONCERNS. Prescriptions: cephALEXin [cephALEXin 500mg capsule] 500 mg PO Q6H 10 Days #40 cap Transmission Status: Received by [id number] Referrals: Michelle Newby MD [Primary Care Provider] - Time of Disposition: 15:39 Medical Decision Making - Medical Records Medical records reviewed: No: I reviewed the patient's medical records. - Magdy Inquiry Pt receiving controlled substance: No Vital Signs: 09/04/20 14:44 09/04/20 15:59 Temperature 98.1 F 98.0 F Temperature Source Oral Oral Pulse Rate 88 Respiratory Rate 16 20 Blood Pressure 136/88 02 Sat by Pulse Oximetry 99 Oxygen Delivery Method Room Air Room Air [facility] [place] HPI - General Stated complaint: [id number] cut to left index finger,home accid Time Seen by Provider: 09/04/20 14:47 - History of Present Illness Provider Complaint: He states that he was working with a pocket knife when he slipped and cut his left index finger. He has a flap shaped laceration on the dorsal aspect of his left index finger. - Related Data Home Medications Medication Instructions Recorded Confirmed tamsulosin 0.4 mg capsule 0.4 mg PO QDAY 06/04/17 07/18/20 umeclidinium 62.5 mcg-vilanterol 1 inh INHALATION Q24H 12/10/18 07/18/20 25 mcg/actuation powdr for inhalation diazepam 5 mg tablet 5 mg PO QHS tab 06/10/19 07/18/20 trazodone 100 mg tablet 100 mg PO QHS tab 07/15/19 07/18/20 atorvastatin 80 mg tablet 80 mg PO DAILY tab 05/04/20 07/18/20 losartan 50 mg tablet 25 mg PO DAILY tab 05/04/20 07/18/20 Fexofenadine HCl [Aller-Ease] 180 mg PO DAILY 05/29/20 07/18/20 Previous Rx's Medication Instructions Recorded levalbuterol tartrate 45 2 inh INHALATION Q6H PRN #15 g 07/10/20 mcg/actuation aerosol inhaler umeclidinium 62.5 mcg-vilanterol 1 inh INHALATION DAILY #60 each 07/10/20 25 mcg/actuation powdr for inhalation cephALEXin [cephALEXin 500mg 500 mg PO Q6H 10 Days #40 cap 09/04/20 capsule] Allergies Allergy/AdvReac Type Severity Reaction Status Date / Time No Known Allergies Allergy Verified 07/18/20 15:23 [facility] History - Hepatitis A Screen Attestation statement:: This patient has been screened for Hepatitis A risk factors. I have reviewed the patient's past medical history: Yes Medical History: Reports:: Asthma, Cancer, Carotid Stenosis, Chronic Obstructive Pulmonary Disease (COPD), Coronary Artery Disease, Cerebrovascular Accident, Diabetes Mellitus Type 2, Hyperlipidemia, Hypertension, Lung Disease Denies:: Diabetes Mellitus Type 1, Internal Pacemaker, MRSA, Seizures Other Medical History: Reports: Arthritis, Other. Denies: Blood Transfusion Reaction Comment: DELMER Laterality Cases: Bilateral: Tonsillectomy, Other Other Surgeries: Yes: No Previous Surgery, Cancer Surgery, Cardiac Catheterization, Cardiac Surgery, Colonoscopy, Coronary Stent, Hernia Repair, Skin Cancer Excision, Other. No: Pacemaker Amputation: No Fractures: No Comment: tonsil - Social History Smoking Status: Former smoker Alcohol Intake: former Alcohol Intake Frequency:: other Substance Use Type: shireen
[2020-09-04 15:59] VITALS: BP 136/88; PULSE 88; RESP 20; TEMP 36.7; O2SAT 98
== END 2020-09-04 16:01 | disposition home or self-care (01) ==
PROVIDERS: Emergency Provider Nurse Practitioner Family; PCP Family Medicine
DX: S61.211A Laceration without foreign body of left index finger without damage to nail, initial encounter (principal); W26.0XXA Contact with knife, initial encounter; Y92.019 Unspecified place in single-family (private) house as the place of occurrence of the external cause; J44.9 Chronic obstructive pulmonary disease, unspecified; I25.10 Atherosclerotic heart disease of native coronary artery without angina pectoris; E11.9 Type 2 diabetes mellitus without complications; E78.5 Hyperlipidemia, unspecified; I10 Essential (primary) hypertension; Z86.73 Personal history of transient ischemic attack (TIA), and cerebral infarction without residual deficits; Z87.891 Personal history of nicotine dependence; Z79.899 Other long term (current) drug therapy
CPT/HCPCS: 12001; G0463; 96372; 99202

== ENCOUNTER 2020-09-14 11:01 | Emergency (ER) | payer MEDICARE, MEDICAID, SELFPAY ==
[2020-09-14 11:11] VITALS: BP 113/76; PULSE 84; RESP 19; TEMP 37.1; O2SAT 97; BMI 25.8
[2020-09-14 11:14] VITALS: BP 113/76; PULSE 84; RESP 19; TEMP 37.1
== END 2020-09-14 11:16 | disposition home or self-care (01) ==
LOC: UTC 11:07
PROVIDERS: Emergency Provider Nurse Practitioner Family; PCP Family Medicine
DX: S61.211D Laceration without foreign body of left index finger without damage to nail, subsequent encounter (principal)

== ENCOUNTER → 2020-11-20 12:51 | Outpatient (CLI) | payer MEDICARE, MEDICAID, SELFPAY | PROVIDERS: PCP Family Medicine; Visit Provider Physician Assistant | DX: E78.2 Mixed hyperlipidemia (principal); I10 Essential (primary) hypertension; I25.10 Atherosclerotic heart disease of native coronary artery without angina pectoris; I63.9 Cerebral infarction, unspecified; I65.23 Occlusion and stenosis of bilateral carotid arteries; R06.00 Dyspnea, unspecified | CPT/HCPCS: 93306 ==

== ENCOUNTER → 2020-12-12 12:16 | Outpatient (CLI) | payer MEDICARE, MEDICAID, SELFPAY ==
--- NOTE | 2020-12-12 | CA_ITS ---
APPROVED REPORT Exam: Pharmacologic Technologist: sandoval varela, Ht: 5 ft 10 in Wt: 179 lbs BSA: 1.99 m2 HR: 55 bpm BP: 145/77 mmHg Indications: CAD Medical History Medications: Trazadone,,,,, Gabapentin,,,,, Diazepam,,,,, Flomax,,,,, Losartan,,,,, Lipitor,,,,, Haylie,,,,, OxYbutynin,,,,, Dronabinol,,,,, Xopenex,,,,, ANora,,,,, Allergies: NKA Cardiac Risk Factors: HTN, Hyperlipidemia Stress Test Details Test: LEXISCAN HR Resting HR: 58 bpm Max Heart Rate (APMHR): 143.389869 bpm Max HR Achieved: 84 bpm Target HR (85% APMHR): 121.975818 bpm % of APMHR: 58.74 Recovery HR: 69 bpm BP Resting BP: 145.0/77.0 mmHg Max BP: 155.0/75.0 mmHg Recovery BP: 155.0/75.0 mmHg ECG Resting ECG: Sinus yisel cannot R/O septal CA Clinical Exercise duration: 04:00 min Highest Stage Achieved: Stress ECG Conclusion No chest pain. Mild stomach discomfort during peak infusion that resolved during recovery. Frequent isolated PVC's. No significant ST changes. Unremarkable Lexiscan stress. Images reported separately. Test Summary REST 05:08 . . 58 . 145/ 77 . . Stage 1 01:00 . . 71 . . . . Stage 2 01:00 . . 83 . 152/ 74 . . Stage 3 01:00 . . 73 . 151/ 77 . . Stage 4 01:00 . . 74 . . . Stop exercise at 04:00 RECOVERY 01:00 . . 78 . 155/ 75 . . RECOVERY 02:00 . . 68 . 155/ 75 . . RECOVERY 03:00 . . 68 . 155/ 75 . . RECOVERY 04:00 . . 66 . 155/ 75 . . RECOVERY 04:42 . . 74 . 147/ 70 . . Electronically signed by : Cb Witt, 12/12/2020 20:03:33
--- NOTE | 2020-12-12 12:16 | NM_ITS ---
APPROVED REPORT Exam: Nuclear Stress Test Indication: Chest pain, SOB, CAD, HTN, High cholesterol, Family history Patient Location: Outpatient Stress Tech: Daniella Farooq ID Tech:Leonora Munoz, ARRT, RT (R)(N) Ht: 5 ft 10 in Wt: 180 lbs HR: 55 bpm BP: 145/77 mmHg BSA: 2.00 m2 BMI: 25.8 History: Chest pain, SOB, CAD, HTN, High cholesterol, Family history Procedure: Patient received a 0.4 mg of intravenous Lexiscan, resting heart rate 55 bpm, resting blood pressure 145/77 mmHg, with Lexiscan maximum heart rate achived was 69 bpm which is Less than 85 % of the maximum predicted heart rate and blood pressure was 155/75 mmHg. With Lexiscan, patient denied any complaint of chest pain. Electrocardiogram Resting electrocardiogram showed sinus rhythm, with Lexiscan there is less than 1.[address] segment depression noted from the baseline EKG. The EKG portion of the Lexiscan is nondiagnostic. Cardiac Stress and Resting SPECT Images: Cardiac Stress and Resting SPECT images were obtained using technetium 99m Myoview 32.6 mCi stress and 10.68 mCi at rest. Gated SPECT for analysis of segmental wall motion and calculation of the ejection fraction also done, prone images were also obtained. Cardiac stress and resting SPECT images show partial reversible defect involving the inferior wall consistent with mixed ischemia and scar, computer derived ejection fraction is 47% with moderate inferior wall hypokinesis. Right ventricle is mildly enlarged with normal contractility. Conclusion: 1. The EKG portion of the Lexiscan Myoview is nondiagnostic. 2. Scintigraphic evidence of mixed ischemia and scar involving the inferior wall, computer derived ejection fraction is 47% with segmental wall motion abnormality described above, right ventricle is mildly enlarged with normal contractility. 3. Abnormal Lexiscan Myoview study. Electronically signed by : Cb Witt, 12/14/2020 15:09:17
--- NOTE | 2020-12-12 13:40 | HMH.ITSHM ---
Current Home Medications as stated by this patient Bebeto Mari or payable representative. []VITAMINS TRAZODONE TAMSULOSIN OXYBUTYNIN LOSARTAN GABAPENTIN FEXOFENDADINE DRONABINOL DIAZEPAM ATORVASTATIN
== END ==
PROVIDERS: PCP Family Medicine; Visit Provider Physician Assistant
DX: E78.5 Hyperlipidemia, unspecified (principal); I10 Essential (primary) hypertension; I25.10 Atherosclerotic heart disease of native coronary artery without angina pectoris; I63.9 Cerebral infarction, unspecified; I65.29 Occlusion and stenosis of unspecified carotid artery; R06.00 Dyspnea, unspecified
CPT/HCPCS: 78452; 93017; A9502; J2785

== ENCOUNTER → 2020-12-22 09:25 | Outpatient (CLI) | payer MEDICARE, MEDICAID, SELFPAY ==
[2020-12-22 09:50] LABS: Basophils # 0.1 K/mm3 (0-0.2); Basophils % 1.2 % (0.1-2.0); Eosinophils # 0.1 K/mm3 (0.0-0.4); Eosinophils % 2.6 % (0.1-12.0); Hematocrit 46.2 % (42.0-52.0); Hemoglobin 15.7 g/dL (14.1-18.0); Lymphocytes # 1.3 K/mm3 (0.7-4.5); Lymphocytes % 24.4 % (10-50); Mean Corpuscular HGB Conc 33.9 g/dL (31.8-35.4); Mean Corpuscular Volume 79.4 fl (80-94); Mean Platelet Volume 8.2 fl (7.4-10.4); Monocytes # 0.5 K/mm3 (0.1-1.0); Monocytes % 8.4 % (1.7-9.3); Neutrophils # 3.4 K/mm3 (1.8-7.8); Neutrophils % 63.5 % (37.0-80.0); Platelet Count 213 K/mm3 (142-424); Red Blood Count 5.82 M/mm3 (4.60-6.20); Red Cell Distribution Width 15.5 % (11.5-17.5); White Blood Count 5.4 K/mm3 (4.8-10.8)
[2020-12-22 10:24] LABS: Chloride 107 mmol/L (98-107); Sodium 142 mmol/L (136-145)
[2020-12-22 10:25] LABS: Potassium 4.5 mmoL/L (3.5-5.1)
[2020-12-22 10:27] LABS: Blood Urea Nitrogen 15 mg/dl (9-20)
[2020-12-22 10:28] LABS: Anion Gap 13.5 mEq/L (5-15); Calcium 9.1 mg/dl (8.4-10.2); Carbon Dioxide 26 mmol/L (22.0-30.0); Estimated Glomerular Filt Rate 65 ml/min (>60); GFR (African American) 79 ML/MIN (>60); Glucose 128 mg/dl (74-100)
== END ==
PROVIDERS: Visit Provider Internal Medicine Cardiovascular Disease
DX: I20.9 Angina pectoris, unspecified (principal); R94.30 Abnormal result of cardiovascular function study, unspecified; Z01.812 Encounter for preprocedural laboratory examination; Z20.822 Contact with and (suspected) exposure to COVID-19
CPT/HCPCS: 36415; 80048; 85025; U0003

== ENCOUNTER 2020-12-25 09:02 | Day surgery (SDC) | payer MEDICARE, MEDICAID, SELFPAY ==
[2020-12-25] VITALS (11 sets, daily range): BP systolic 125–155; BP diastolic 56–86; PULSE 49–71; RESP 18; O2SAT 93–97; BMI 26.2
--- NOTE | 2020-12-25 07:12 | IR_ITS ---
APPROVED REPORT Patient Location: Outpatient PROCEDURES Left heart catheterization Left ventriculogram Selective coronary angiogram INDICATION Regional wall motion abnormality with abnormal echocardiogram, Known coronary disease, Angina pectoris Informed consent was obtained prior to the procedure. COMPLICATIONS NONE Estimated Blood Loss: LESS THAN 10 ML TECHNIQUE One percent lidocaine used to anesthetize the right anterior aspect of the wrist. The right radial artery was accessed via the Seldinger technique. A 6 Greek sheath was placed in the right radial artery. 2.5 mg of verapamil, 800 mcg of nitroglycerin, 1mg Lidocaine and 5000 U Heparin were given through the arterial sheath. The Poppa catheter was also used to perform left heart catheterization, left ventriculogram and selective coronary angiogram. At the end of the procedure the sheath was removed good hemostasis was achieved using Traclet band, patient was transferred to the postop holding area in stable condition. ANGIOGRAPHIC RESULTS The left main artery Normal The left anterior descending artery Has a stent in the proximal segment which is widely patent with minimal proximal in-stent restenosis nothing greater than 20 to 30%. There is excellent proximal distal transitioning The circumflex artery Is nondominant and gives rise to a moderate-sized ramus intermedius which has mild proximal 10 to 20% stenoses with tandem 50% stenoses and a 2 mm branch. The first obtuse marginal artery has mild 10% atheromatous plaque The right coronary artery Is a large dominant vessel with proximal and mid vessel external calcifications. The proximal and mid segments have 30% atheromatous plaque The GARCIA ventriculogram reveals Mild left ventricular dilatation with anterior apical hypokinesis estimate ejection fraction 45% The left ventricular end-diastolic pressure 10 mmHg IMPRESSION Adequate coronary revascularization as described above Regional wall motion abnormality with ejection fraction of 45% Normal left ventricular end-diastolic pressure PLAN 1. Medical management Electronically signed by : Waldo Younger MD 12/25/2020 11:19:50
== END 2020-12-25 14:10 | disposition home or self-care (01) ==
PROVIDERS: PCP Family Medicine; Visit Provider Internal Medicine
DX: I25.118 Atherosclerotic heart disease of native coronary artery with other forms of angina pectoris; R94.30 Abnormal result of cardiovascular function study, unspecified; I10 Essential (primary) hypertension; E78.5 Hyperlipidemia, unspecified; J44.9 Chronic obstructive pulmonary disease, unspecified; E11.9 Type 2 diabetes mellitus without complications; Z95.5 Presence of coronary angioplasty implant and graft; Z79.899 Other long term (current) drug therapy; Z87.891 Personal history of nicotine dependence
CPT/HCPCS: 93458; 99152; C1725; C1769; J1644; Q9967

== ENCOUNTER → 2021-07-09 16:52 | Outpatient (CLI) | payer MEDICARE, MEDICAID, SELFPAY ==
--- NOTE | 2021-07-09 16:55 | XR_ITS ---
PROCEDURE INFORMATION: Exam: XR Chest Exam date and time: 07/09/2021 4:55 PM Age: 75 years old Clinical indication: Shortness of breath; Prior surgery; Surgery type: Stents; Patient HX: Asthma; Additional info: SOB TECHNIQUE: Imaging protocol: XR of the chest. Views: 2 views. COMPARISON: CR XR CHEST 2V 07/06/2019 1:21 PM FINDINGS: Lungs: Emphysema. In the lung bases there is mild atelectasis. Pleural spaces: Unremarkable. No pleural effusion. No pneumothorax. Heart/Mediastinum: Unremarkable. No cardiomegaly. Bones/joints: Chronic left lateral rib fracture deformity. IMPRESSION: No acute findings.
== END ==
PROVIDERS: PCP Family Medicine; Visit Provider Internal Medicine Pulmonary Disease
DX: R06.02 Shortness of breath (principal)
CPT/HCPCS: 71046

== ENCOUNTER → 2021-07-19 13:07 | Outpatient (CLI) | payer MEDICARE, MEDICAID, SELFPAY ==
[2021-07-19 16:44] LABS: Anion Gap 10.1 mEq/L (5-15); Blood Urea Nitrogen 25 mg/dl (9-20); Calcium 8.5 mg/dl (8.4-10.2); Carbon Dioxide 29 mmol/L (22.0-30.0); Chloride 101 mmol/L (98-107); Estimated Glomerular Filt Rate 65 ml/min (>60); GFR (African American) 79 ML/MIN (>60); Glucose 114 mg/dl (74-100); Potassium 4.1 mmoL/L (3.5-5.1); Sodium 136 mmol/L (136-145)
[2021-07-19 16:52] LABS: NT Pro Brain Natriuretic Pep. 90.8 pg/mL (0-450)
== END ==
PROVIDERS: Visit Provider Physician Assistant
DX: E78.5 Hyperlipidemia, unspecified (principal); I10 Essential (primary) hypertension; I25.10 Atherosclerotic heart disease of native coronary artery without angina pectoris; I63.9 Cerebral infarction, unspecified; I65.29 Occlusion and stenosis of unspecified carotid artery; R06.00 Dyspnea, unspecified; E78.2 Mixed hyperlipidemia
CPT/HCPCS: 36415; 80048; 83880

== ENCOUNTER → 2021-11-16 11:38 | Outpatient (CLI) | payer MEDICARE, MEDICAID, SELFPAY ==
[2021-11-16 12:35] LABS: Chloride 108 mmol/L (98-107); Potassium 4.1 mmoL/L (3.5-5.1); Sodium 140 mmol/L (136-145)
[2021-11-16 12:38] LABS: Anion Gap 11.1 mEq/L (5-15); Blood Urea Nitrogen 30 mg/dl (9-20); Calcium 9.3 mg/dl (8.4-10.2); Carbon Dioxide 25 mmol/L (22.0-30.0); Estimated Glomerular Filt Rate 49 ml/min (>60); GFR (African American) 59 ML/MIN (>60); Glucose 116 mg/dl (74-100)
== END ==
PROVIDERS: PCP Family Medicine; Visit Provider Internal Medicine Cardiovascular Disease
DX: C01 Malignant neoplasm of base of tongue (principal); E78.2 Mixed hyperlipidemia; G47.33 Obstructive sleep apnea (adult) (pediatric); I10 Essential (primary) hypertension; I25.10 Atherosclerotic heart disease of native coronary artery without angina pectoris; J44.9 Chronic obstructive pulmonary disease, unspecified; R06.00 Dyspnea, unspecified
CPT/HCPCS: 36415; 80048; 83880

== ENCOUNTER → 2022-06-25 17:16 | Outpatient (CLI) | payer MEDICARE, MEDICAID, SELFPAY ==
[2022-06-27 12:15] LABS: PSA, Free 0.34 ng/mL; Prostate Specific Ag 0.9 ng/mL (0.0-4.0)
== END ==
PROVIDERS: PCP Family Medicine; Visit Provider Family Medicine
DX: F52.21 Male erectile disorder (principal)
CPT/HCPCS: 36415; 84153; 84154

== ENCOUNTER → 2022-10-18 11:24 | Outpatient (CLI) | payer MEDICARE, MEDICAID, SELFPAY ==
[2022-10-18 12:10] LABS: Appearance,Urine CLEAR (Clear); Blood, Urine Negative (Negative); Color,Urine YELLOW (Yellow); Glucose,Urine (UA) Negative (Negative); Ketones,Urine Negative (Negative); Leukocyte Esterase,Urine Negative (Negative); Nitrate,Urine Negative (Negative); Protein,Urine Negative (Negative); Specific Gravity, Urine 1.025 (1.005-1.030); Urobilinogen,Urine 0.2 EU/dl (0.2)
[2022-10-18 12:31] LABS: Bilirubin,Urine Negative (Negative)
[2022-10-18 12:36] LABS: Anion Gap 13.1 mEq/L (5-15); Blood Urea Nitrogen 10 mg/dl (9-20); Calcium 8.7 mg/dl (8.4-10.2); Carbon Dioxide 24 mmol/L (22.0-30.0); Chloride 108 mmol/L (98-107); Estimated Glomerular Filt Rate 72 ml/min (>60); GFR (African American) 87 ML/MIN (>60); Glucose 128 mg/dl (74-100); Potassium 4.1 mmoL/L (3.5-5.1); Sodium 141 mmol/L (136-145)
[2022-10-18 12:39] LABS: Microscopic, Urine URINE MICROSCOPIC (MICROSCOPIC); Squamous Epithelial Cell,Urine Occasional #/hpf (0-5); WBC,Urine Occasional #/hpf (0-3)
[2022-10-18 12:58] LABS: Basophils # 0.1 K/mm3 (0-0.2); Basophils % 1.1 % (0.1-2.0); Eosinophils # 0.1 K/mm3 (0.0-0.4); Eosinophils % 1.7 % (0.1-12.0); Hematocrit 53.8 % (42.0-52.0); Hemoglobin 17.4 g/dL (14.1-18.0); Lymphocytes % 19.8 % (10-50); Mean Corpuscular HGB Conc 32.3 g/dL (31.8-35.4); Mean Corpuscular Hemoglobin 27.3 pg (27.0-31.2); Mean Corpuscular Volume 84.6 fl (80-94); Monocytes # 0.4 K/mm3 (0.1-1.0); Monocytes % 7.4 % (1.7-9.3); Neutrophils # 3.5 K/mm3 (1.8-7.8); Neutrophils % 70.1 % (37.0-80.0); Platelet Count 170 K/mm3 (142-424); Red Blood Count 6.36 M/mm3 (4.60-6.20); Red Cell Distribution Width 15.3 % (11.5-17.5)
== END ==
PROVIDERS: PCP Family Medicine; Visit Provider Surgery
DX: K42.9 Umbilical hernia without obstruction or gangrene (principal); I25.10 Atherosclerotic heart disease of native coronary artery without angina pectoris; Z01.818 Encounter for other preprocedural examination
CPT/HCPCS: 36415; 80048; 81001; 85025

== ENCOUNTER 2022-11-14 06:52 | Day surgery (SDC) | payer MEDICARE, MEDICAID, SELFPAY ==
[2022-11-13 13:26] VITALS: BMI 27.2
[2022-11-14] VITALS (10 sets, daily range): BP systolic 127–157; BP diastolic 68–92; PULSE 69–92; RESP 13–18; TEMP 36.1–43; O2SAT 91–98
--- NOTE | 2022-11-14 07:13 | P.PN_ITS ---
[facility] Disclaimer: The information contained in this section may have been updated after the patient was seen, as this information can be updated by other users. Medical History Asthma Cancer of base of tongue COPD (chronic obstructive pulmonary disease) Dyspnea on exertion Encounter for pre-operative cardiovascular clearance History of CVA (cerebrovascular accident) History of head and neck cancer Screening for lung cancer Stopped smoking with greater than 30 pack year history Surgical History History of heart artery stent History of tonsillectomy Family History Other Family history non-contributory Social History Smoking Status: Former smoker second hand exposure: Yes alcohol intake: never counseling provided: provider counseling substance use type: denies use current occupational status: retired Travel in the last 8 weeks: None household members: significant other housing: house current occupational exposures/hazards: Yes caffeine: Yes [facility] Anesthesia Checklist Patient Identification Patient Identification: Arm Band and Verbal (Name & ) Structural Data Admitted From: Home Planned Operative Procedure/s: Umbilical hernia repair Consent for Planned Operative Procedure(s) Verified: Yes NPO Status Verified Time NPO: 00:00 Chart Verification Results Verified: CBC and BMP Additional verifications Anesthesia Reactions: No Hx Blood Transfusions: No Blood Transfusion Reaction: No Airway Assessment C-Spine Mobility Assessed: Yes TMJ Mobility Assessed: Yes Dentition: Poor Dentition Neurological Assessment Level of Consciousness: Awake Hx Seizures: No Numbness or tingling in extremities: No Anesthesia Plan Anesthesia Risk discussed: Yes Anesthesia Plan: Verified ASA Class: III Anesthesia Type: General
--- NOTE | 2022-11-14 08:40 | EXP.OP.NOTE ---
Date of procedure: 11/14/22 Pre-op Diagnosis:: Umbilical hernia Post-op Diagnosis:: Same Procedure performed:: Primary open umbilical hernia repair (no mesh) Surgeon:: Antonio Santillan MD CAMP PROGRAM DIRECTOR:: China Hardy Anesthesia: GETMichelle Estimated blood loss (mL): 5 Operative findings:: Fingertip defect 0 Ethibond closure (no mesh) Operative note:: After informed consent was obtained the patient was taken to the operating room and placed in the supine position. General anesthesia was induced and his abdomen was prepped and draped in a sterile fashion. After infiltration local anesthetic a curvilinear infraumbilical incision was made. The subcutaneous tissue around the umbilicus was carefully dissected. The umbilical stump was elevated and transected. The fingertip defect was then easily seen. 0 Ethibond was used to close the defect in an interrupted fashion. #2 non-dyed Vicryl was then used to reapproximate the umbilical stump. Skin was closed with running 4-0 Monocryl in a subcuticular fashion. Dressings were applied and the patient was transferred to recovery in stable condition. Condition: stable Disposition: PACU Specimens:: none Complications:: No immediate
--- NOTE | 2022-11-14 08:45 | EXP.ANES.I ---
[facility] Anesthesia Record Part I Anesthesia Record I Intake, IV Amount: 700 Estimated blood loss (mL): 5 Urine output (mL): 0 Blood Pressure: 141/70 SaO2: 93 Pulse Rate: 75 Respiratory Rate: 13 Temperature: 97 F Patient is:: Drowsy and Oral/Nasal airway Stable to PACU at:: 08:45
[2022-11-18 08:06] VITALS: BP 137/77; PULSE 82; TEMP 36.1
--- NOTE | 2022-11-18 08:06 | EXP.ANES.II ---
[facility] [place] Anesthesia Record Part II Anesthesia Record Part II Discharge Time: 09:14 Destination: Surgical Day Care (OP Surgery) PACU nurse assessment reviewed?: Yes Patient Condition:: Good Anesthesia Complications:: None Swallowing reflex intact?: Yes Cyanosis?: No Blood Pressure: 137/77 Pulse Rate: 82 Temperature: 97 F Mental Status: Alert & Oriented Pain level:: 0 Nausea and/or vomitting:: None Intake, IV Amount: 0
== END 2022-11-14 09:50 | disposition home or self-care (01) ==
PROVIDERS: PCP Family Medicine; Visit Provider Surgery
DX: K42.9 Umbilical hernia without obstruction or gangrene (principal)
CPT/HCPCS: 49591; 96374; J2405

== ENCOUNTER → 2023-01-09 14:29 | Outpatient (CLI) | payer MEDICARE, MEDICAID, SELFPAY ==
[2023-01-09 15:37] LABS: Basophils # 0.1 K/mm3 (0-0.2); Basophils % 1.1 % (0.1-2.0); Eosinophils # 0.1 K/mm3 (0.0-0.4); Eosinophils % 1.4 % (0.1-12.0); Hematocrit 51.6 % (42.0-52.0); Hemoglobin 16.9 g/dL (14.1-18.0); Lymphocytes # 1.1 K/mm3 (0.7-4.5); Mean Corpuscular HGB Conc 32.8 g/dL (31.8-35.4); Mean Corpuscular Hemoglobin 27.4 pg (27.0-31.2); Mean Corpuscular Volume 83.6 fl (80-94); Mean Platelet Volume 8.7 fl (7.4-10.4); Monocytes # 0.5 K/mm3 (0.1-1.0); Monocytes % 7.6 % (1.7-9.3); Neutrophils # 4.4 K/mm3 (1.8-7.8); Neutrophils % 71.9 % (37.0-80.0); Platelet Count 195 K/mm3 (142-424); Red Blood Count 6.18 M/mm3 (4.60-6.20); Red Cell Distribution Width 15.3 % (11.5-17.5); White Blood Count 6.2 K/mm3 (4.8-10.8)
[2023-01-15 06:57] LABS: D001-IgE D pteronyssinus <0.10 kU/L (Class 0); D002-IgE D farinae <0.10 kU/L (Class 0); E001-IgE Cat Dander <0.10 kU/L (Class 0); E005-IgE Dog Dander <0.10 kU/L (Class 0); E072-IgE Mouse Urine <0.10 kU/L (Class 0); G002-IgE Bermuda Grass <0.10 kU/L (Class 0); G006-IgE Timothy Grass <0.10 kU/L (Class 0); I006-IgE Cockroach, German <0.10 kU/L (Class 0); Immunoglobulin E, Total 27 IU/mL (6-495); M001-IgE Penicillium chrysogen <0.10 kU/L (Class 0); M002-IgE Cladosporium herbarum <0.10 kU/L (Class 0); M003-IgE Aspergillus fumigatus <0.10 kU/L (Class 0); M006-IgE Alternaria alternata <0.10 kU/L (Class 0); T001-IgE Maple/Box Elder <0.10 kU/L (Class 0); T003-IgE Common Silver Birch <0.10 kU/L (Class 0); T006-IgE Cedar, Mountain <0.10 kU/L (Class 0); T007-IgE Oak, White <0.10 kU/L (Class 0); T008-IgE Elm, American <0.10 kU/L (Class 0); T010-IgE Walnut <0.10 kU/L (Class 0); T011-IgE Maple Leaf Sycamore <0.10 kU/L (Class 0); T014-IgE Cottonwood <0.10 kU/L (Class 0); T015-IgE Ash, White <0.10 kU/L (Class 0); T022-IgE Pecan, Hickory <0.10 kU/L (Class 0); T070-IgE White Mulberry <0.10 kU/L (Class 0); W001-IgE Ragweed, Short <0.10 kU/L (Class 0); W011-IgE Thistle, Russian <0.10 kU/L (Class 0); W014-IgE Pigweed, Common <0.10 kU/L (Class 0); W018-IgE Sheep Sorrel <0.10 kU/L (Class 0)
== END ==
PROVIDERS: PCP Family Medicine; Visit Provider Internal Medicine Pulmonary Disease
DX: J45.909 Unspecified asthma, uncomplicated (principal); Z87.891 Personal history of nicotine dependence
CPT/HCPCS: 36415; 82785; 85025; 86003

== ENCOUNTER → 2023-04-15 15:31 | Outpatient (CLI) | payer MEDICARE, MEDICAID, SELFPAY ==
[2023-04-15 16:57] LABS: Alanine Aminotransferase 31 U/L (12-78); Albumin Level 4.3 g/dl (3.5-5.0); Alkaline Phosphatase 69 U/L (38-126); Anion Gap 12.3 mEq/L (5-15); Aspartate Amino Transferase 32 U/L (17-59); Bilirubin,Indirect 0.7 mg/dL (0.0-0.9); Bilirubin,Total 0.7 mg/dl (0.2-1.3); Bilirubin,Unconjugated 0.7 mg/dL (0.0-1.1); Blood Urea Nitrogen 8 mg/dl (9-20); Calcium 8.5 mg/dl (8.4-10.2); Carbon Dioxide 26 mmol/L (22.0-30.0); Chloride 106 mmol/L (98-107); Chol/HDL Ratio 7.7 (1-3.5); Cholesterol 262 mg/dl (140-200); Estimated Glomerular Filt Rate 72 ml/min (>60); GFR (African American) 87 ML/MIN (>60); Glucose 100 mg/dl (74-100); HDL Cholesterol 34 mg/dl (40-60); Magnesium 1.8 mg/dl (1.6-2.3); Potassium 4.3 mmoL/L (3.5-5.1); Sodium 140 mmol/L (136-145); Total Protein,Serum 7.3 g/dl (6.3-8.2); Triglycerides 189 mg/dl (30-150); VLDL Cholesterol 38 mg/dL (0-40)
[2023-04-15 17:08] LABS: Direct LDL Cholesterol 182.25 mg/dL (100-129)
[2023-04-15 17:28] LABS: Thyroid Stimulating Hormone 2.98 uIU/mL (0.465-4.68)
== END ==
LOC: LAB 15:32
PROVIDERS: PCP Family Medicine; Visit Provider Physician Assistant
DX: E78.5 Hyperlipidemia, unspecified (principal); G47.33 Obstructive sleep apnea (adult) (pediatric); I10 Essential (primary) hypertension; I25.10 Atherosclerotic heart disease of native coronary artery without angina pectoris; I63.9 Cerebral infarction, unspecified; J44.9 Chronic obstructive pulmonary disease, unspecified; R06.09 Other forms of dyspnea; R07.9 Chest pain, unspecified; R73.9 Hyperglycemia, unspecified; I65.23 Occlusion and stenosis of bilateral carotid arteries
CPT/HCPCS: 80048; 80061; 80076; 83735; 84443

== ENCOUNTER → 2023-05-08 13:25 | Outpatient (CLI) | payer MEDICARE, SELFPAY ==
[2023-05-08 14:01] LABS: Basophils # 0.1 K/mm3 (0-0.2); Basophils % 0.8 % (0.1-2.0); Eosinophils # 0.1 K/mm3 (0.0-0.4); Eosinophils % 1.7 % (0.1-12.0); Hematocrit 50.5 % (42.0-52.0); Hemoglobin 17.3 g/dL (14.1-18.0); Lymphocytes # 1.5 K/mm3 (0.7-4.5); Lymphocytes % 19.3 % (10-50); Mean Corpuscular HGB Conc 34.4 g/dL (31.8-35.4); Mean Corpuscular Hemoglobin 28.4 pg (27.0-31.2); Mean Corpuscular Volume 82.5 fl (80-94); Mean Platelet Volume 8.5 fl (7.4-10.4); Monocytes # 0.5 K/mm3 (0.1-1.0); Monocytes % 6.1 % (1.7-9.3); Neutrophils # 5.4 K/mm3 (1.8-7.8); Neutrophils % 72.1 % (37.0-80.0); Platelet Count 232 K/mm3 (142-424); Red Blood Count 6.11 M/mm3 (4.60-6.20); Red Cell Distribution Width 14.6 % (11.5-17.5); White Blood Count 7.5 K/mm3 (4.8-10.8)
[2023-05-08 14:10] LABS: Chloride 105 mmol/L (98-107)
[2023-05-08 14:11] LABS: Sodium 142 mmol/L (136-145)
[2023-05-08 14:13] LABS: Blood Urea Nitrogen 10 mg/dl (9-20); Estimated Glomerular Filt Rate 65 ml/min (>60); GFR (African American) 78 ML/MIN (>60)
[2023-05-08 14:14] LABS: Alanine Aminotransferase 33 U/L (12-78); Albumin Level 4.3 g/dl (3.5-5.0); Albumin/Globulin Ratio 1.6 (1.1-1.8); Alkaline Phosphatase 84 U/L (38-126); Anion Gap 11.3 mEq/L (5-15); Aspartate Amino Transferase 33 U/L (17-59); Carbon Dioxide 30 mmol/L (22.0-30.0); Chol/HDL Ratio 5.3 (1-3.5); Cholesterol 169 mg/dl (140-200); Globulin 2.7 g/dL (1.3-3.2); Glucose 107 mg/dl (74-100); HDL Cholesterol 32 mg/dl (40-60); Potassium 4.3 mmoL/L (3.5-5.1); Triglycerides 182 mg/dl (30-150); VLDL Cholesterol 36 mg/dL (0-40)
[2023-05-08 14:25] LABS: Direct LDL Cholesterol 105.15 mg/dL (100-129)
[2023-05-08 15:26] LABS: Hemoglobin A1C 6.4 % (4.0-6.0)
[2023-05-08 15:51] LABS: Vitamin B12 505 pg/mL (239-931)
[2023-05-10 16:01] LABS: PSA, Free 0.46 ng/mL; Prostate Specific Ag 1.3 ng/mL (0.0-4.0)
[2023-05-13 10:16] LABS: Folate 5.47 ng/mL
== END ==
LOC: LAB 13:27
PROVIDERS: PCP Family Medicine; Visit Provider Nurse Practitioner Family
DX: E11.9 Type 2 diabetes mellitus without complications; E53.8 Deficiency of other specified B group vitamins; E78.2 Mixed hyperlipidemia; I10 Essential (primary) hypertension; Z12.5 Encounter for screening for malignant neoplasm of prostate; Z87.891 Personal history of nicotine dependence; Z79.899 Other long term (current) drug therapy
CPT/HCPCS: 36415; 80053; 80061; 82607; 82746; 83036; 84153; 84154; 85025

== ENCOUNTER → 2023-05-09 11:17 | Outpatient (CLI) | payer MEDICARE, SELFPAY ==
--- NOTE | 2023-05-09 | CA_ITS ---
APPROVED REPORT Exam: Pharmacologic Technologist: Bea Evans, Ht: 5 ft 10 in Wt: 196 lbs BSA: 2.07 m2 HR: 60 bpm BP: 153/74 mmHg Rhythm: Sinus bradycardia Indications: CP, SOA, CAD Medical History Medical History: HTN, Hyperlipidemia Medications: Asa,,,,, Atorvastatin,,,,, Trelegy,,,,, Levalbuterol,,,,, Cardiac Risk Factors: HTN, Hyperlipidemia, Smoking Stress Test Details Test: LEXISCAN HR Resting HR: 60 bpm Max Heart Rate (APMHR): 141 bpm Max HR Achieved: 85 bpm Target HR (85% APMHR): 120 bpm % of APMHR: 60 Recovery HR: 71 bpm BP Resting BP: 153/74 mmHg Max BP: 186/78 mmHg Recovery BP: 181.0/76.0 mmHg ECG Resting ECG: Sinus bradycardia, cannot rule out old anterior GA, PACs, PVCs Arrhythmia: PACs, PVCs, ventricular bigeminy Clinical Exercise duration: 04:06 min Highest Stage Achieved: Exercise capacity: 1.0 METs Stress ECG Conclusion PT HAD MILD STOMACH DISCOMFORT NO CP OCC PAC. OCC PVC WITH BRIEF PERIODS OF VENT. BIGEMINY NO SIGNIFICANT ST CHANGES CONCLUSION: UNREMARKABLE LEXISCAN STRESS MYOVIEW IMAGES REPORTED SEPARATELY Test Summary REST 04:03 . . 60 . 153/ 74 . . Stage 1 01:00 . . 81 . . . . Stage 2 01:00 . . 83 . 177/ 78 . . Stage 3 01:00 . . 79 . . . . Stage 4 01:00 . . 75 . 180/ 76 . . Stage 4 01:06 . . 76 . 180/ 76 . Stop exercise at 04:06 RECOVERY 01:00 . . 72 . 171/ 83 . . RECOVERY 02:00 . . 73 . 169/ 86 . . RECOVERY 03:00 . . 74 . 186/ 78 . . RECOVERY 04:00 . . 67 . 186/ 78 . . RECOVERY 04:34 . . 66 . 181/ 76 . . Electronically signed by : Makeda Meraz MD 05/13/2023 23:51:33
--- NOTE | 2023-05-09 11:17 | NM_ITS ---
APPROVED REPORT Exam: Nuclear Stress Test Indication: hyperlipidemia, former smoker, fm hx, sob, fatigue Patient Location: Outpatient Stress Tech: Bea Evans MD Tech:Hannah Dumont ODIN RT (R)(N)(M) Ht: 5 ft 10 in Wt: 191 lbs HR: 60 bpm BP: 153/74 mmHg BSA: 2.05 m2 TID: 1.22 BMI: 27.4 History: hyperlipidemia, former smoker, fm hx, sob, fatigue Procedure: Patient received 0.4 mg of intravenous Lexiscan, resting heart rate 60 bpm, resting blood pressure 153/74 mmHg, with Lexiscan maximum heart rate achieved was 84 bpm which is % of the maximum predicted heart rate and blood pressure was 177/78 mmHg. With Lexiscan, patient denied any complaint of chest pain. Cardiac Stress and Resting SPECT Images: Cardiac Stress and Resting SPECT images were obtained using technetium 99m Myoview 31.6 mCi stress and 10.24 mCi at rest. The patient could not lie on his abdomen. Therefore, prone stress imaging could not be performed. This may affect the diagnostic interpretation of the study findings. Resting and stress imaging and supine positions demonstrate a large sized, severe, fixed perfusion defect in the inferior and inferolateral LV zelaya from the base and extending distally towards the inferoapical region. There is increased transient ischemic dilatation ratio (TID 1.22), suggestive of possible multivessel disease or balanced ischemia. Gated imaging demonstrates mild reduction in global LV systolic function. There is severe hypokinesis of the inferior and inferolateral LV zelaya. LVEF is calculated at 47%. Conclusion: Large sized, severe, fixed perfusion defect in the inferior and inferolateral LV zelaya from the base and extending distally towards the inferoapical region. There is increased transient ischemic dilatation ratio (TID 1.22), suggestive of possible multivessel disease or balanced ischemia. Gated imaging demonstrates mild reduction in global LV systolic function. There is severe hypokinesis of the inferior and inferolateral LV zelaya. LVEF is calculated at 47%. Electronically signed by : Makeda Meraz MD 05/13/2023 23:54:45
--- NOTE | 2023-05-09 13:06 | CA_ITS ---
APPROVED REPORT EXAM: Comprehensive 2D, Doppler, and color-flow Echocardiogram [employer] Efficient Site Manager: Va Rizo CRT Ht: 5 ft 10 in Wt: 196lbs BSA: 2.07 BP: 183/86 mmHg Indications: EF 40-50% prev echo, pre-op, cva, cm, ex smoker, HTN, HLD 2D Dimensions LA Volume 31.10 mL LA Volume Index 14.70 mL/m2 (M/F) 16-34 M-Mode Dimensions RVDd 2.90 cm (0.9-2.6) LA Diam 4.35 cm (1.9-4.0) LVDd 5.89 cm (3.5-5.7) LVDs 4.33 cm (3.5-5.7) IVSd 1.03 cm (0.6-1.1) PWd 0.89 cm (0.6-1.1) EF (Teich) 51.10% FS 26.50% EDV (Teich) 172.50 mL TAPSE 2.33 (<1.7) ESV (Teich) 84.40 mL LV Diastology E Decel Time 340 (160-240 msec) E/A Ratio 1.13 MED A' 14.70 cm/s LAT A' 8.50 cm/s Aortic Valve AI PHT 417.00 ms AO Peak GR. 7.80 mmHg Mitral Valve MV E Max Khris. 99.0 (40-130 cm/s) MV A Velocity 87.0 (40-130 cm/s) E/A Ratio 1.13 MV PHT 100.0 ms Pulmonary Valve PV Peak Velocity 112.0 (50-150 cm/s) Tricuspid Valve TR P. Velocity 205.00 cm/s RAP Estimate 10.00 mmHg RVSP 26.80 mmHg Left Ventricle The left ventricle is normal size. The left ventricular systolic function is low-normal. There is normal left ventricular wall thickness. There is low-normal LV segmental wall motion. There is mild hypokinesis of the basal inferior and inferoseptal LV zelaya. The left ventricular diastolic function is normal. LVEF is 50%. Right Ventricle The right ventricle is normal size. The right ventricular systolic function is normal. There is increased RV wall thickness. Atria The left atrium size is normal. The right atrium size is normal. There is no Doppler evidence of interatrial shunt. Aortic Valve The aortic valve is mildly thickened. There is no aortic valvular stenosis. Trace aortic regurgitation. Mitral Valve The mitral valve is normal in structure. No evidence of mitral valve stenosis. Trace mitral regurgitation. Tricuspid Valve The tricuspid valve leaflets are thin and pliable. Trace tricuspid regurgitation. There is insufficient TR jet to estimate RVSP. Pulmonic Valve The pulmonary valve is not well visualized. Trace pulmonic regurgitation. Great Vessels The aortic root is normal in size. The ascending aorta is not well visualized. IVC is normal in size and collapses >50% with inspiration. Pericardium There is no pericardial effusion. Other Information Study Quality: Technically Difficult Conclusion Technically difficult study due to poor accoustic windows. Low-normal LV systolic function (LVEF 50%). Mild hypokinesis of the basal inferior and inferoseptal LV zelaya. No significant valvular stenosis or regurgitation. Electronically signed by : Makeda Meraz MD 05/13/2023 19:32:45
== END ==
LOC: RAD 11:17
PROVIDERS: PCP Family Medicine; Visit Provider Physician Assistant
DX: I11.9 Hypertensive heart disease without heart failure (principal); I25.10 Atherosclerotic heart disease of native coronary artery without angina pectoris; Z86.73 Personal history of transient ischemic attack (TIA), and cerebral infarction without residual deficits; I65.29 Occlusion and stenosis of unspecified carotid artery; R06.09 Other forms of dyspnea; R07.9 Chest pain, unspecified; E78.5 Hyperlipidemia, unspecified; G47.33 Obstructive sleep apnea (adult) (pediatric); J44.9 Chronic obstructive pulmonary disease, unspecified; Z87.891 Personal history of nicotine dependence
CPT/HCPCS: 78452; 93017; 93018; 93306; A9502; J2785

== ENCOUNTER 2023-05-27 08:02 | Day surgery (SDC) | payer MEDICARE, SELFPAY ==
[2023-05-22 16:36] VITALS: BMI 27.3
[2023-05-27] VITALS (7 sets, daily range): BP systolic 144–176; BP diastolic 68–81; PULSE 64–72; RESP 17–19; TEMP 36.6–36.7; O2SAT 95–99
[2023-05-27] MEDS: CYCLOPENTOLATE 2% OPHTH SOLN 2ML BOTTLE OP ×3 (08:10→08:20)
[2023-05-27] MEDS: PHENYLEPHRINE 2.5% OPHTH SOLN 2ML 0.0500000000000000028 ML OP ×3 (08:10→08:20)
[2023-05-27] MEDS: TETRACAINE 0.5% OPTH SOL 15ML OP ×3 (08:10→08:20)
[2023-05-27] MEDS: SODIUM CHLORIDE 0.9% 10ML FLUSH SYRINGE 10 ML IV ×2 (08:34→09:44)
[2023-05-27] MEDS: MIDAZOLAM 2MG/2ML VIAL 1 MG IV (09:44)
[2023-05-27] MEDS: LIDOCAINE 1% PF 2ML AMPULE 2 ML IJ (09:51)
[2023-05-27] MEDS: TOBRAMYCIN/DEX OPTH SUSP 2.5ML OP (09:53)
[2023-05-27] MEDS: TIMOLOL 0.5% OPTH SOLN 5ML OP (09:53)
== END 2023-05-27 10:17 | disposition home or self-care (01) ==
PROVIDERS: PCP Family Medicine; Visit Provider Ophthalmology
PROC: (CPT 66984; principal; 2023-05-27 10:00)
DX: H25.811 Combined forms of age-related cataract, right eye (principal)
CPT/HCPCS: 66984; V2632

== ENCOUNTER 2024-05-04 08:35 | Day surgery (SDC) | payer MEDICARE, SELFPAY ==
[2024-05-04] VITALS (13 sets, daily range): BP systolic 136–187; BP diastolic 68–85; PULSE 50–98; RESP 16–18; TEMP 36.6; O2SAT 92–96; BMI 26.2
--- NOTE | 2024-05-04 | IR_ITS ---
APPROVED REPORT Patient Location: Outpatient Rug Receiving Clerk: Hollis Panchal, RT (R) PROCEDURES Right heart catheterization Left heart catheterization Left ventriculogram Selective coronary angiogram Drug-eluting stent deployment to the proximal and mid dominant right coronary artery Drug-eluting stent deployment to large first diagonal artery INDICATION Pulmonary hypertension, Worsening dyspnea, Abnormal Myoview, Angina pectoris, Coronary artery disease Informed consent was obtained prior to the procedure. COMPLICATIONS None Estimated Blood Loss: Less than 10 mls TECHNIQUE One percent lidocaine was used to anesthetize the right anterior aspect of the right wrist. The right radial artery was accessed via the Seldinger technique and a 6 [place]er hydrophilic sheath was placed in the right radial artery. Following this one percent lidocaine was used to anesthetize the right anterior aspect of the right neck. The right internal jugular vein was accessed via the Seldinger technique and a 7 [place] sheath was placed in the right internal jugular vein. Following this an arterial cocktail was administered using 5000U heparin, 2.5 mg verapamil, 1mg Lidocaine and 800mcg nitroglycerin into the right radial sheath. A 6 [place] JL 3 guide catheter was used to perform left heart catheterization left ventriculogram and selective coronary angiography while a [place] J catheter was used to perform right heart catheterization. Saturations were obtained in the pulmonary artery and right atrium. At the end of the diagnostic angiogram therapeutic heparin was administered giving a therapeutic ACT and the guide catheter was placed in the right coronary artery followed by Choice PT extra-support wire distally. A 3.5 x 38 mm Lukasz frontier stent was deployed at 20 bobo reducing the severe stenosis to 0%. DAVE-3 flow was present before and after the procedure. Following this the guide was taken out of the right coronary and placed in the left main artery followed by Choice PT extra-support wire placed down the first diagonal artery. Primary stenting could not be performed therefore 2 mm x 15 mm balloon was deployed at 15 bobo to predilate the stenosis. Following this a 2 mm x 30 mm Bon[place]arte frontier stent was placed in the proximal to midportion of the diagonal artery and deployed at 18 bobo. An additional 2 mm x 12 mm Lukasz frontier stent was placed distal to the for stent yet still overlapping and deployed at 12 bobo. The balloon was brought back and deployed at 18 bobo to match the 2 stents. Excellent angiograph results were obtained with DAVE-3 flow being present before and after the procedure down the right coronary artery and diagonal artery. At the end the procedure the apparatus was removed the sheath was removed good hemostasis was achieved using TR banding patient was transferred to the postop putting in stable condition for venous sheath removal ANGIOGRAPHIC RESULTS The left main artery Normal The left anterior descending artery Has proximal 10% stenoses. There is mid vessel 10 to 20% stenosis in the LAD. A large diagonal artery which is equal in size to the LAD has a proximal concentric 90% stenosis The circumflex artery Is a nondominant yet still large vessel which gives rise to a large ramus intermedius which has mid vessel 30% stenoses and a stent in its distal segment which is widely patent with minimal in-stent restenosis. A large first obtuse marginal artery has a stent in the proximal segment which is also widely patent with minimal in-stent restenosis. Distal to the stent there is a 20% transitioning stenosis The right coronary artery Is a large dominant vessel and has proximal 40% stenosis with a mid vessel concentric 60 and then 70% stenosis The GARCIA ventriculogram reveals Not performed The left ventricular end-diastolic pressure Not measured Right atrial pressure 10 mmHg Right ventricular pressure 35/10 mmHg Pulmonary artery pressure 35/18 mmHg Pulmonary artery occlusion pressure 15 mm Right atrial saturation 84% Pulmonary desaturate 84% Aortic saturation 98% Hemoglobin 15.1 Cardiac output 9.3 L/min IMPRESSION Severe disease in the mid dominant right coronary as described above and correlated with abnormal stress test Successful stenting of the proximal to mid right coronary artery severe disease reduced to 0% with 1 drug-eluting stent Successful stenting of the large first diagonal artery severe disease reduced to 0% with 2 contiguous drug-eluting stents Mild pulmonary hypertension Mildly elevated left-sided filling pressures as described above PLAN 1. Dual antiplatelet therapy 2. Cardiac rehabilitation 3. LDL less than 55 to achieve that high intensity statin 4. Avoidance of tobacco products 5. Risk factor modification Electronically signed by : Waldo Younger MD 05/04/2024 10:52:45
[2024-05-04 09:02] LABS: Basophils # 0.1 K/mm3 (0-0.2); Basophils % 0.7 % (0.1-2.0); Eosinophils # 0.1 K/mm3 (0.0-0.4); Eosinophils % 0.9 % (0.1-12.0); Hematocrit 43.9 % (42.0-52.0); Hemoglobin 15.1 g/dL (14.1-18.0); Lymphocytes # 1.7 K/mm3 (0.7-4.5); Lymphocytes % 17.7 % (10-50); Mean Corpuscular HGB Conc 34.4 g/dL (31.8-35.4); Mean Corpuscular Hemoglobin 27.7 pg (27.0-31.2); Mean Corpuscular Volume 80.3 fl (80-94); Mean Platelet Volume 8.2 fl (7.4-10.4); Monocytes # 0.6 K/mm3 (0.1-1.0); Monocytes % 5.7 % (1.7-9.3); Neutrophils # 7.4 K/mm3 (1.8-7.8); Neutrophils % 75.1 % (37.0-80.0); Platelet Count 207 K/mm3 (142-424); Red Blood Count 5.46 M/mm3 (4.60-6.20); Red Cell Distribution Width 14.8 % (11.5-17.5); White Blood Count 9.9 K/mm3 (4.8-10.8)
[2024-05-04 09:13] LABS: Chloride 110 mmol/L (98-107); Potassium 3.4 mmoL/L (3.5-5.1); Sodium 139 mmol/L (136-145)
[2024-05-04 09:16] LABS: Anion Gap 5.4 mEq/L (5-15); Blood Urea Nitrogen 15 mg/dl (9-20); Calcium 9.1 mg/dl (8.4-10.2); Carbon Dioxide 27 mmol/L (22.0-30.0); Creatinine Clearance Estimated 63 mL/min (50-200); Estimated Glomerular Filt Rate 64 ml/min (>60); GFR (African American) 78 ML/MIN (>60); Glucose 102 mg/dl (74-100)
[2024-05-04] MEDS: HEPARIN 1,000 UNITS/500ML NS (CATH LAB) 3000 UNIT IV (09:51)
[2024-05-04] MEDS: VERAPAMIL 2.5MG/ML 2ML VIAL 2.5 MG IV (09:52)
[2024-05-04] MEDS: LIDOCAINE 1% 10ML MDV 20 ML IJ (09:52)
[2024-05-04] MEDS: HEPARIN 1,000 UNITS/ML 10ML VIAL (CATH LAB) 10000 UNIT IV ×2 (09:52→10:26)
[2024-05-04] MEDS: 0.9 % SODIUM CHLORIDE 500 ML 25 ML IV (09:52)
[2024-05-04] MEDS: NITROGLYCERIN 800MCG/8ML SYR (CATH LAB) 800 MCG IA (09:53)
[2024-05-04] MEDS: MIDAZOLAM HCL 1MG/ML 5ML VIAL 1 MG IV (10:20)
[2024-05-04] MEDS: FENTANYL 100MCG/2ML VIAL 50 MCG IV (10:21)
[2024-05-04] MEDS: diphenhydrAMINE 50MG/ML VIAL 50 MG IV (10:35)
[2024-05-04] MEDS: IOPAMIDOL-370 (76%);100ML BOTTLE 100 ML IV (12:41)
[2024-05-04 12:45] LABS: CATHL Activated Clotting Time 332 SEC (74-125)
== END 2024-05-04 14:08 | disposition home or self-care (01) ==
PROVIDERS: PCP Family Medicine; Visit Provider Internal Medicine
DX: I25.118 Atherosclerotic heart disease of native coronary artery with other forms of angina pectoris (principal); I27.20 Pulmonary hypertension, unspecified; I65.23 Occlusion and stenosis of bilateral carotid arteries; J44.9 Chronic obstructive pulmonary disease, unspecified; Z79.899 Other long term (current) drug therapy; E78.5 Hyperlipidemia, unspecified; I77.1 Stricture of artery
CPT/HCPCS: 80048; 85025; 85347; 92928; 92929; 93460; 99152; 99153; C1725; C1769; C1874; C1894; C9600; C9601; J1200; J1644; J2250; J3010; Q9967

== ENCOUNTER 2024-05-07 11:47 | Outpatient (CLI) | payer MEDICARE, SELFPAY ==
--- NOTE | 2024-05-07 12:08 | CT_ITS ---
FINAL REPORT TECHNIQUE: After the administration of intravenous contrast, axial images through the chest were performed by computed tomography.This study was performed with techniques to keep radiation doses as low as reasonably achievable, (ALARA). Individualized dose reduction techniques using automated exposure control or adjustment of mA and/or kV according to the patient''s size were employed. CLINICAL HISTORY: tongue squamous cell carcinoma COMPARISON: None FINDINGS: There is no axillary adenopathy. There is a mildly enlarged lymph node in the AP window measuring 12 mm. No hilar adenopathy is seen. The heart size is normal. There is no pericardial or pleural effusion. 2 tiny nodules are seen in the posterior left lung apex on image 19 measuring 2 mm. There is a 2 mm nodule on image 66 in the left lower lobe posteriorly. Mild atelectasis or scarring is noted in the right lower lobe. There is a 2 mm right upper lobe nodule posteriorly on image 29. Limited images of the upper abdomen demonstrated right adrenal gland nodule measuring 15 mm. IMPRESSION: Tiny nonspecific lung nodules could represent granulomas or, less likely, metastasis. Mild adenopathy. Nonspecific right adrenal nodule. Recommend chest CT follow-up in 3 to 6 months. Reviewed, Interpreted and Dictated by Gurinder Lui MD Transcribed by Sherly Ricketts Authenticated and [facility]
--- NOTE | 2024-05-07 12:08 | CT_ITS ---
FINAL REPORT CLINICAL HISTORY: tongue squamous cell carcinoma COMPARISON: None FINDINGS: CT NECK WITH CONTRAST TECHNIQUE: Axial CT with IV contrast administration. This study was performed with techniques to keep radiation doses as low as reasonably achievable, (ALARA). Individualized dose reduction techniques using automated exposure control or adjustment of mA and/or kV according to the patient's size were employed. FINDINGS: There is mild soft tissue asymmetry of the tongue base, predominantly central, which extends into the vallecula, that may represent lymphoid tissue or the patient's reported neoplasm. No other focal abnormality is identified. No cervical adenopathy is present. Salivary glands are normal. Larynx is unremarkable. 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 There is no abscess. This study was performed using automated techniques to achieve radiation exposure as low as reasonably achievable IMPRESSION: No findings of metastatic disease. The primary tumor is not well-delineated on this examination, although there is mild soft tissue asymmetry of the tongue base. Significant internal carotid artery disease bilaterally as described. Consider dedicated CTA with vascular surgery follow-up. Reviewed, Interpreted and Dictated by Gurinder Lui MD Transcribed by Estefanía Champagne Authenticated and [facility]
[2024-05-07 12:25] LABS: Chloride 113 mmol/L (98-107); Sodium 139 mmol/L (136-145)
[2024-05-07 12:26] LABS: Potassium 3.6 mmoL/L (3.5-5.1)
[2024-05-07 12:28] LABS: Blood Urea Nitrogen 17 mg/dl (9-20); Estimated Glomerular Filt Rate 58 ml/min (>60); GFR (African American) 70 ML/MIN (>60)
[2024-05-07 12:29] LABS: Anion Gap 4.6 mEq/L (5-15); Calcium 8.4 mg/dl (8.4-10.2); Carbon Dioxide 25 mmol/L (22.0-30.0); Glucose 84 mg/dl (74-100)
[2024-05-07 12:48] LABS: Hematocrit 42.1 % (42.0-52.0); Hemoglobin 13.7 g/dL (14.1-18.0); Mean Corpuscular Hemoglobin 26.6 pg (27.0-31.2); Mean Corpuscular Volume 81.7 fl (80-94); Red Blood Count 5.15 M/mm3 (4.60-6.20); White Blood Count 6.7 K/mm3 (4.8-10.8)
[2024-05-07 12:49] LABS: Basophils # 0.1 K/mm3 (0-0.2); Basophils % 0.7 % (0.1-2.0); Eosinophils # 0.2 K/mm3 (0.0-0.4); Eosinophils % 2.2 % (0.1-12.0); Lymphocytes # 1.5 K/mm3 (0.7-4.5); Mean Corpuscular HGB Conc 32.5 g/dL (31.8-35.4); Mean Platelet Volume 10.5 fl (7.4-10.4); Monocytes # 0.6 K/mm3 (0.1-1.0); Monocytes % 8.6 % (1.7-9.3); Neutrophils # 4.5 K/mm3 (1.8-7.8); Neutrophils % 66.4 % (37.0-80.0); Platelet Count 258 K/mm3 (142-424); Red Cell Distribution Width 14.4 % (11.5-17.5)
[2024-05-07] MEDS: IOPAMIDOL-370 (76%);100ML BOTTLE 50 ML IV (12:51)
[2024-05-07] MEDS: SODIUM CHLORIDE 0.9% 10ML SYR (RAD ONLY) 10 ML IV (12:51)
[2024-05-07] MEDS: IOPAMIDOL-370 (76%);100ML BOTTLE 75 ML IV (12:51)
== END 2024-05-07 23:59 | disposition home or self-care (01) ==
LOC: RAD 11:48
PROVIDERS: Internal Medicine; PCP Family Medicine; Visit Provider Internal Medicine Medical Oncology
DX: I25.10 Atherosclerotic heart disease of native coronary artery without angina pectoris (principal); Z85.810 Personal history of malignant neoplasm of tongue
CPT/HCPCS: 36415; 70491; 71260; 80048; 85025; Q9967

== ENCOUNTER 2024-05-28 13:10 | Outpatient (CLI) | payer MEDICARE, SELFPAY ==
[2024-05-28 14:11] LABS: Anion Gap 9.6 mEq/L (5-15); Blood Urea Nitrogen 20 mg/dl (9-20); Calcium 9.4 mg/dl (8.4-10.2); Carbon Dioxide 30 mmol/L (22.0-30.0); Chloride 104 mmol/L (98-107); Chol/HDL Ratio 5.6 (1-3.5); Cholesterol 150 mg/dl (140-200); Estimated Glomerular Filt Rate 58 ml/min (>60); GFR (African American) 70 ML/MIN (>60); Glucose 92 mg/dl (74-100); HDL Cholesterol 27 mg/dl (40-60); Potassium 3.6 mmoL/L (3.5-5.1); Sodium 140 mmol/L (136-145); Triglycerides 221 mg/dl (30-150); VLDL Cholesterol 44 mg/dL (0-40)
[2024-05-28 14:22] LABS: Direct LDL Cholesterol 95.95 mg/dL (100-129)
== END 2024-05-28 23:59 | disposition home or self-care (01) ==
LOC: LAB 13:14
PROVIDERS: PCP Family Medicine; Visit Provider Nurse Practitioner Family
DX: I27.20 Pulmonary hypertension, unspecified (principal); E78.2 Mixed hyperlipidemia
CPT/HCPCS: 36415; 80048; 80061

== ENCOUNTER 2024-06-08 14:01 | Outpatient (RCR) | payer MEDICARE, SELFPAY | END 2024-06-08 23:59 | disposition home or self-care (01) | LOC: ST 14:01 | PROVIDERS: Visit Provider Otolaryngology | DX: R49.0 Dysphonia (principal); R13.10 Dysphagia, unspecified | CPT/HCPCS: 92524 ==

== ENCOUNTER 2024-06-15 11:04 | Outpatient (CLI) | payer MEDICARE, SELFPAY | END 2024-06-15 23:59 | disposition home or self-care (01) | LOC: RAD 11:05 | PROVIDERS: PCP Family Medicine; Visit Provider Nurse Practitioner | DX: R13.10 Dysphagia, unspecified (principal) | CPT/HCPCS: 74230; 92611 ==

== ENCOUNTER 2024-06-25 15:23 | Outpatient (CLI) | payer MEDICARE, SELFPAY ==
[2024-06-25 15:59] LABS: Chloride 104 mmol/L (98-107); Potassium 4.3 mmoL/L (3.5-5.1); Sodium 140 mmol/L (136-145)
[2024-06-25 16:02] LABS: Blood Urea Nitrogen 35 mg/dl (9-20); Estimated Glomerular Filt Rate 27 ml/min (>60); GFR (African American) 33 ML/MIN (>60)
[2024-06-25 16:03] LABS: Anion Gap 16.3 mEq/L (5-15); Calcium 9.6 mg/dl (8.4-10.2); Carbon Dioxide 24 mmol/L (22.0-30.0); Glucose 114 mg/dl (74-100)
== END 2024-06-25 23:59 | disposition home or self-care (01) ==
PROVIDERS: PCP Family Medicine; Visit Provider Physician Assistant
DX: I27.20 Pulmonary hypertension, unspecified (principal); R60.9 Edema, unspecified
CPT/HCPCS: 36415; 80048

== ENCOUNTER 2024-07-06 12:51 | Outpatient (CLI) | payer MEDICARE, SELFPAY ==
[2024-07-06 15:33] LABS: Chloride 111 mmol/L (98-107); Potassium 4.8 mmoL/L (3.5-5.1); Sodium 141 mmol/L (136-145)
[2024-07-06 15:36] LABS: Anion Gap 13.8 mEq/L (5-15); Blood Urea Nitrogen 38 mg/dl (9-20); Calcium 9.4 mg/dl (8.4-10.2); Carbon Dioxide 21 mmol/L (22.0-30.0); Estimated Glomerular Filt Rate 49 ml/min (>60); GFR (African American) 59 ML/MIN (>60); Glucose 102 mg/dl (74-100)
== END 2024-07-06 23:59 | disposition home or self-care (01) ==
PROVIDERS: Physician Assistant; PCP Family Medicine; Visit Provider Internal Medicine Pulmonary Disease
DX: R06.09 Other forms of dyspnea (principal); R60.9 Edema, unspecified; I42.8 Other cardiomyopathies; I10 Essential (primary) hypertension; I25.10 Atherosclerotic heart disease of native coronary artery without angina pectoris; E78.2 Mixed hyperlipidemia; I65.23 Occlusion and stenosis of bilateral carotid arteries
CPT/HCPCS: 36415; 80048; 94618

== ENCOUNTER 2024-09-22 10:37 | Outpatient (CLI) | payer MEDICARE, SELFPAY ==
--- OUTSIDE RECORDS SUMMARY | 2024-09-22 10:41 | XMS_ITS ---
Author Organization Unknown TREATMENT PLAN [facility] Start Date Provider Encounter for Check-up [phone] DELMA Newby
--- NOTE | 2024-09-22 10:42 | XR_ITS ---
FINAL REPORT CLINICAL HISTORY: Shortness of breath COMPARISON: 07/09/2021 FINDINGS: PA and lateral views of the chest are obtained. The cardiac and mediastinal silhouettes are within normal limits. There is underlying emphysema. There is no focal infiltrate, effusion, or pneumothorax. IMPRESSION: No radiographic evidence of acute cardiac or pulmonary disease. Reviewed, Interpreted and Dictated by Zoë Wilson MD Transcribed by Sandra Anderson Authenticated and [facility]
== END 2024-09-22 23:59 | disposition home or self-care (01) ==
LOC: RAD 10:39
PROVIDERS: PCP Family Medicine; Visit Provider Family Medicine
DX: R09.89 Other specified symptoms and signs involving the circulatory and respiratory systems (principal); R06.02 Shortness of breath
CPT/HCPCS: 71046

== ENCOUNTER 2024-11-01 07:56 | Day surgery (SDC) | payer MEDICARE, SELFPAY ==
[2024-11-01] VITALS (11 sets, daily range): BP systolic 131–182; BP diastolic 65–93; PULSE 54–76; RESP 16–22; O2SAT 94–99; BMI 25.8
--- NOTE | 2024-11-01 07:09 | IR_ITS ---
APPROVED REPORT Patient Location: Outpatient PROCEDURES Left heart catheterization Left ventriculogram Selective coronary angiogram INDICATION Preoperative evaluation, Abnormal Myoview, Known coronary artery disease Informed consent was obtained prior to the procedure. COMPLICATIONS NONE Estimated Blood Loss: LESS THAN 10 ML TECHNIQUE One percent lidocaine used to anesthetize the right anterior aspect of the wrist. The right radial artery was accessed via the Seldinger technique. A 6 [place] sheath was placed in the right radial artery. 2.5 mg of Verapamil, 800 mcg of nitroglycerin, 1mg Lidocaine and 5000 U Heparin were given through the arterial sheath. The JL3 catheter was also used to perform left heart catheterization, left ventriculogram and selective coronary angiogram. At the end of the procedure the sheath was removed good hemostasis was achieved using Traclet band, patient was transferred to the postop holding area in stable condition. ANGIOGRAPHIC RESULTS The left main artery Normal The left anterior descending artery Has a stent in the proximal segment which is widely patent with mild concentric in-stent restenosis nothing greater than 30%. There is excellent proximal distal transitioning. The remaining LAD is widely patent. There is a stent in the medium sized first diagonal artery which is widely patent with mild concentric in-stent restenosis with excellent proximal distal transitioning The circumflex artery Gives rise to medium sized ramus intermedius which then bifurcates and has a widely patent stent in the superior branch with minimal in-stent restenosis excellent proximal and distal transition. The inferior branch is widely patent. The circumflex artery itself has a stent in the proximal segment which is widely patent with minimal in-stent restenosis with excellent proximal transitioning and a 30 to 40% distal transitioning stenosis supplying a small to medium size obtuse marginal artery The right coronary artery Is codominant and has stents in the proximal to mid segment which are widely patent with minimal in-stent restenosis. Distally there are 30% stenosis The GARCIA ventriculogram reveals Normal 65% The left ventricular end-diastolic pressure 10 mmHg IMPRESSION Coronary artery disease as described above Normal ejection fraction Normal LVEDP PLAN 1. Medical management for coronary disease 2. Patient is a low and acceptable risk to proceed with outpatient elective surgical procedure Electronically signed by : Waldo Younger MD 11/01/2024 14:24:06
[2024-11-01 08:47] LABS: Basophils # 0.1 K/mm3 (0-0.2); Basophils % 1.3 % (0.1-2.0); Eosinophils # 0.2 Kmm3 (0.0-0.4); Eosinophils % 3.4 % (0.1-12.0); Hematocrit 42.8 % (42.0-52.0); Hemoglobin 14.1 g/dL (14.1-18.0); Immature Granulocytes # 0.03 10^3uL; Immature Granulocytes % 0.5 %; Lymphocytes # 1.8 K/mm3 (0.7-4.5); Lymphocytes % 28.5 % (10-50); Mean Corpuscular HGB Conc 32.9 g/dL (31.8-35.4); Mean Corpuscular Volume 84.9 fl (80-94); Mean Platelet Volume 10.3 fl (7.4-10.4); Monocytes # 0.6 K/mm3 (0.1-1.0); Monocytes % 10.2 % (1.7-9.3); Neutrophils # 3.5 K/mm3 (1.8-7.8); Neutrophils % 56.1 % (37.0-80.0); Nucleated Red Blood Cells # 0 10^3/uL; Nucleated Red Blood Cells % 0 %; Platelet Count 206 K/mm3 (142-424); Red Blood Count 5.04 M/mm3 (4.60-6.20); Red Cell Distribution Width 13.5 % (11.5-17.5); White Blood Count 6.2 K/mm3 (4.8-10.8)
[2024-11-01 08:52] LABS: Chloride 113 mmol/L (98-107); Potassium 4.2 mmoL/L (3.5-5.1); Sodium 138 mmol/L (136-145)
[2024-11-01 08:55] LABS: Anion Gap 6.2 mEq/L (5-15); Blood Urea Nitrogen 17 mg/dl (9-20); Calcium 8.7 mg/dl (8.4-10.2); Carbon Dioxide 23 mmol/L (22.0-30.0); Creatinine Clearance Estimated 68 mL/min (50-200); Estimated Glomerular Filt Rate 81 ml/min (>60); GFR (African American) 98 ML/MIN (>60); Glucose 111 mg/dl (74-100)
[2024-11-01] MEDS: 0.9 % SODIUM CHLORIDE 500 ML 25 ML IV (09:45)
[2024-11-01] MEDS: NITROGLYCERIN 800MCG/8ML SYR (CATH LAB) 800 MCG IA (09:46)
[2024-11-01] MEDS: HEPARIN 1,000 UNITS/ML 10ML VIAL (CATH LAB) 5000 UNIT IV (09:46)
[2024-11-01] MEDS: LIDOCAINE 1% 10ML MDV 10 ML IJ (09:46)
[2024-11-01] MEDS: HEPARIN 1,000 UNITS/500ML NS (CATH LAB) 3000 UNIT IV (09:46)
[2024-11-01] MEDS: VERAPAMIL 2.5MG/ML 2ML VIAL 2.5 MG IV (09:46)
[2024-11-01] MEDS: diphenhydrAMINE 50MG/ML VIAL 50 MG IV (09:46)
[2024-11-01] MEDS: MIDAZOLAM HCL 1MG/ML 5ML VIAL 1 MG IV (10:07)
[2024-11-01] MEDS: FENTANYL 100MCG/2ML VIAL 50 MCG IV (10:07)
[2024-11-01] MEDS: IOPAMIDOL-370 (76%);100ML BOTTLE 70 ML IV (15:08)
== END 2024-11-01 12:07 | disposition home or self-care (01) ==
LOC: CATHLAB 07:57
PROVIDERS: PCP Family Medicine; Visit Provider Internal Medicine
PROC: 4A023N7 Measurement of Cardiac Sampling and Pressure, Left Heart, Percutaneous Approach (ICD-10-PCS; CPT 93452; principal; 2024-11-01 07:30)
DX: I25.118 Atherosclerotic heart disease of native coronary artery with other forms of angina pectoris (principal); R06.09 Other forms of dyspnea; J44.89 Other specified chronic obstructive pulmonary disease; I27.20 Pulmonary hypertension, unspecified; E78.5 Hyperlipidemia, unspecified; I69.398 Other sequelae of cerebral infarction; H53.9 Unspecified visual disturbance; I65.29 Occlusion and stenosis of unspecified carotid artery; Z87.891 Personal history of nicotine dependence; Z95.5 Presence of coronary angioplasty implant and graft; Z79.02 Long term (current) use of antithrombotics/antiplatelets; Z79.899 Other long term (current) drug therapy
CPT/HCPCS: 93458; 36415; 80048; 85025; 99152; C1725; C1769; J1200; J1644; J2003; J3010; J7040; Q9967

== ENCOUNTER 2024-11-04 07:34 | Day surgery (SDC) | payer MEDICARE, SELFPAY ==
[2024-11-02 14:16] VITALS: BMI 26.1
[2024-11-04 08:47] VITALS: BP 191/86; PULSE 83; RESP 16; TEMP 36.2; O2SAT 95
[2024-11-04] MEDS: LACTATED RINGERS 1000ML 1,000 ML 50 ML IV (08:59)
--- NOTE | 2024-11-04 09:17 | P.HP_ITS ---
History of Present Illness *Admission Date: 11/04/24 *History of present illness: Mr. Mari is an 78-year-old gentleman with dysphagia who is here for diagnostic/therapeutic EGD. 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 The examination is deemed medically necessary for EGD. The patient has been seen, interviewed and examined prior to the procedure by both myself and the anesthesia provider. [facility] Disclaimer: The information contained in this section may have been updated after the patient was seen, as this information can be updated by other users. Medical History Hx of radiation therapy Edema Hyperlipidemia Coronary artery disease Muscle tension dysphonia Difficulty swallowing Dysphagia History of asthma History of CVA (cerebrovascular accident) Asthma Screening for lung cancer History of head and neck cancer Stopped smoking with greater than 30 pack year history COPD (chronic obstructive pulmonary disease) Dyspnea on exertion Encounter for pre-operative cardiovascular clearance Cancer of base of tongue Umbilical hernia without mention of obstruction or gangrene Chronic obstructive lung disease Surgical History History of hernia surgery History of heart artery stent History of tonsillectomy Family History Other Family history non-contributory Social History Smoking Status: Former smoker tobacco type: cigarettes second hand exposure: Yes alcohol intake: former counseling provided: provider counseling substance use type: denies use current occupational status: retired Travel in the last 8 weeks?: None household members: significant other housing: house current occupational exposures/hazards: Yes caffeine: No Have you lived/traveled outside [place] in past 30 days?: No Contact w/someone who lives/traveled outside US past 30 days?: No Exposure to someone with infectious disease in past 14 days?: No Do you have a fever (greater than 100.4 F or 38 C)?: No Have you tested positive for COVID-19?: No Exposed to someone with COVID-19 in past 14 days?: No Do you have a sore throat?: No Do you have a cough?: No Do you have any weakness?: No Do you have any diarrhea?: No Are you experiencing any unusual bleeding?: No Do you have any muscle aches/pain?: No Do you have any abdominal pain?: No Are you experiencing loss of taste or smell?: No Other Medical History Have you received the Flu Vaccine for this season: Yes Have you received the Pneumonia Vaccine: Yes Review of Systems Review of Systems Review of systems (narrative): Negative *Cardiovascular Comments: Negative *Gastrointestinal Comments: Negative *Genitourinary Comments: Negative *Musculoskeletal Comments: Negative *Neurologic Comments: Negative Meds Home Medications and Allergies Home Medications ?Medication ?Instructions ?Recorded ?Confirmed ?Type levalbuterol tartrate 45 See Rx Instructions .Route 0 09/04/23 11/04/24 Rx mcg/actuation aerosol inhaler .COMPLEX #15 grams cyclosporine 0.05 % eye drops in a 1 drp Eye-Both D IRECTED 08/17/24 11/04/24 History dropperette tiotropium 2.5 mcg-olodaterol 2.5 See Rx Instructions .Route 09/20/24 11/04/24 Rx mcg/actuation mist for inhalation .COMPLEX #4 grams (Stiolto Respimat) clopidogrel 75 mg tablet (Plavix) 75 mg PO DAILY #30 t abs 10/25/24 11/04/24 Rx umeclidinium 62.5 mcg-vilanterol 1 ea inhalation DAILY 11/02/24 11/04/24 History 25 mcg/actuation powdr for inhalation (Anoro Ellipta) New Prescriptions to Start Prescriptions: Allergies Allergy/AdvReac Type Severity Reaction Status Date / Time No Known Allergies Allergy Verified 11/04/24 08:45 Exam Data for Last 24 hours Vital signs and Labs for Last 24 Hours: Temp Pulse Resp BP Pulse Ox O2 Del Method 97.2 F L 83 16 191/86 H 95 Room Air 11/04/24 08:47 11/04/24 08:47 11/04/24 08:47 11/04/24 08:47 11/04/24 08:47 11/04/24 08:47 I & O for Last 24 hours: Intake & Output 11/01/24 11/02/24 11/03/24 11/04/24 23:59 23:59 23:59 23:59 Weight 182 lb *Routine HEENT Exam Head: Present normocephalic Eye: Present EOMI and PERRL ENT: Present mucous membranes moist *Routine Neck Exam Neck: Present supple *Routine Respiratory Exam Respiratory: Present CTA bilaterally *Routine Cardiovascular Exam Cardiovascular: Present RRR *Routine Abdominal Exam Abdominal: Present soft and normoactive bowel sounds; Absent tenderness *Routine Rectal Exam Rectal:: deferred *Routine Genitalia Exam Genitalia:: deferred *Routine Extremities Exam Extremities: Absent cyanosis, clubbing or edema *Routine Skin Exam Skin: Present warm; Absent rash *Routine Neurological Exam Neurological: Present alert and oriented X3 Assessment and Plan *Assessment and plan (1) Dysphagia: Status: Acute Qualifiers: Dysphagia type: unspecified Qualified Code(s): R13.10 - Dysphagia, unspecified Category: Medical Code(s): R13.10 - Dysphagia, unspecified (2) Difficulty swallowing: Status: Acute Qualifiers: Dysphagia type: unspecified Qualified Code(s): R13.10 - Dysphagia, unspecified Category: Medical Code(s): R13.10 - Dysphagia, unspecified (3) History of tongue cancer: Status: Acute Category: Medical Code(s): Z85.810 - Personal history of malignant neoplasm of tongue Plan A/P: 1. Dysphagia/swallowing difficulty is the preprocedural diagnosis. The patient will be anesthetized/sedated using MAC sedation. The patient has been seen and examined. Cardiac and lung assessment prior to the examination is stable. Proceed with planned EGD.
--- NOTE | 2024-11-04 09:22 | EXP.ANES.CKL ---
[facility] Disclaimer: The information contained in this section may have been updated after the patient was seen, as this information can be updated by other users. Medical History Hx of radiation therapy Edema Hyperlipidemia Coronary artery disease Muscle tension dysphonia Difficulty swallowing Dysphagia History of asthma History of CVA (cerebrovascular accident) Asthma Screening for lung cancer History of head and neck cancer Stopped smoking with greater than 30 pack year history COPD (chronic obstructive pulmonary disease) Dyspnea on exertion Encounter for pre-operative cardiovascular clearance Cancer of base of tongue Umbilical hernia without mention of obstruction or gangrene Chronic obstructive lung disease Surgical History History of hernia surgery History of heart artery stent History of tonsillectomy Family History Other Family history non-contributory Social History Smoking Status: Former smoker tobacco type: cigarettes second hand exposure: Yes alcohol intake: former counseling provided: provider counseling substance use type: denies use current occupational status: retired Travel in the last 8 weeks?: None household members: significant other housing: house current occupational exposures/hazards: Yes caffeine: No Have you lived/traveled outside US in past 30 days?: No Contact w/someone who lives/traveled outside US past 30 days?: No Exposure to someone with infectious disease in past 14 days?: No Do you have a fever (greater than 100.4 F or 38 C)?: No Have you tested positive for COVID-19?: No Exposed to someone with COVID-19 in past 14 days?: No Do you have a sore throat?: No Do you have a cough?: No Do you have any weakness?: No Do you have any diarrhea?: No Are you experiencing any unusual bleeding?: No Do you have any muscle aches/pain?: No Do you have any abdominal pain?: No Are you experiencing loss of taste or smell?: No [facility] Anesthesia Checklist Patient Identification Patient Identification: Verbal (Name & ) Structural Data Admitted From: Home Planned Operative Procedure/s: egd Consent for Planned Operative Procedure(s) Verified: Yes NPO Status Verified Time NPO: 00:00 Additional verifications Anesthesia Reactions: No Hx Blood Transfusions: No Blood Transfusion Reaction: No Airway Assessment Mallampati Score:: Class II C-Spine Mobility Assessed: Yes TMJ Mobility Assessed: Yes Dentition: Edentulous Neurological Assessment Level of Consciousness: Awake, Alert and Appropriate Anesthesia Plan Anesthesia Risk discussed: Yes Anesthesia Plan: Verified ASA Class: IV Anesthesia Type: MAC
--- NOTE | 2024-11-04 09:27 | P.PCN_ITS ---
[facility] Procedure Note Date: 11/04/24 Time: 09:41 Procedure Note:: Upper Endoscopy Procedure Report: Esophagogastroduodenoscopy with cold biopsies and TTS balloon dilation Endoscopost: Shiv Deshpande II, MD Referring Physician: Denver Newby M.D. Date of Procedure: November 04, 2024 Equipment: Olympus GIF 190 standard upper endoscope Sedation: MAC sedation Indications: Mr. Mari is an 78-year-old gentleman with dysphagia. 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 He underwent chemoradiation which was completed in September 2018. He has been in remission with no evidence of recurrence of cancer on follow-up imaging and inspection. He has had loss of mentation and multiple loss of teeth and periodontal abscesses necessitating tooth removal related to the radiation. He is choking on primarily solids and pills over liquids. He has never had an EGD. He reportedly had stomach ulcers about 50 years ago. He was referred to ENT without significant findings on modified barium swallow. Procedure: Prior to the procedure, a history and physical exam was performed, and patient's medications and allergies were reviewed. The risks, benefits and alternatives of the sedation and procedure were discussed with the patient. All questions were answered and informed consent was obtained. The patient was brought to the procedure room. Patient identification and proposed procedure were verified by the physician and the nurse. The patient was placed in a left lateral decubitus position and the scope was passed under direct vision. Throughout the procedure, the patient's blood pressure, pulse, and oxygen saturations were mo nitored continuously. The upper GI endoscopy was accomplished without difficulty. The patient tolerated the procedure well. Findings: The scope was passed directly into the upper esophagus and advanced to the third portion of the duodenum. The post bulbar duodenum and duodenal bulb were normal with normal mucosa and conniventes. The scope was withdrawn through a normal duodenal bulb and pylorus into the stomach. There was some mild chronic gastritis of the body and fundus and cold biopsies were taken along the lesser curvature and incisura. Upon retroflexion there was a 2 cm hiatal herni a. The scope was then withdrawn into the esophagus. There was no evidence of reflux esophagitis, candidal esophagitis or Liu's. There were no significant mucosal lesions. There was an insignificant distal Schatzki's ring. There was also a slightly tighter proximal esophageal web. There was no inlet patch or significant evidence of radiation esophagitis. The entire esophagus was dilated to 20 mm/60 English with a TTS hydrostatic balloon. The remainder of the esophageal mucosa was normal. Impression: 1. 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 Distal Schatzki's ring (insignificant and not fractured with dilation to 20 mm) 3. Small 2 cm hiatal hernia 4. Mild chronic gastritis Plan: I will follow-up the biopsies and discuss the findings with the patient and family. He should have some clinical improvement with dilation of the proximal esophageal fibrotic web. 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 I do feel that he may benefit from evaluation by a speech pathologist(Tabitha Robertson, PhD/[facility]). Oropharyngeal or transfer dysphagia is characterized by difficulty initiating a swallow. Swallowing may be accompanied by nasopharyngeal regurgitation, aspiration, and a sensation of residual food remaining in the pharynx. Normal swallowing consists of an oral preparatory, pharyngeal, and esophageal phase. In the oral preparatory phase, the bolus is processed by mastication/chewing to an appropriate size, shape, and consistency to pass through the pharynx and esophagus. During the pharyngeal phase of swallowing, the food bolus is advanced through the pharynx and into the esophagus by pharyngeal peristalsis. Oropharyngeal dysphagia arises from structural or functional diseases of the upper esophagus and pharynx, or upper esophageal sphincter that affect the oral preparatory or pharyngeal phase of swallowing.
[2024-11-04 09:49] VITALS: BP 123/72; PULSE 65; RESP 16; O2SAT 94
[2024-11-04 09:50] VITALS: BP 127/68; PULSE 65; RESP 16; TEMP 36.2; O2SAT 95
[2024-11-04 09:59] VITALS: BP 138/73; PULSE 67; RESP 14; O2SAT 94
[2024-11-04 10:09] VITALS: BP 127/61; PULSE 65; RESP 16; O2SAT 94
[2024-11-04 10:35] VITALS: BP 139/70; PULSE 63; RESP 16; TEMP 36.2; O2SAT 94
== END 2024-11-04 10:35 | disposition home or self-care (01) ==
PROVIDERS: PCP Family Medicine; Visit Provider Internal Medicine Gastroenterology
PROC: 0DJ08ZZ Inspection of Upper Intestinal Tract, Via Natural or Artificial Opening Endoscopic (ICD-10-PCS; CPT 43239; principal; 2024-11-04 09:00)
DX: K22.2 Esophageal obstruction (principal); K44.9 Diaphragmatic hernia without obstruction or gangrene; K29.50 Unspecified chronic gastritis without bleeding; Z85.810 Personal history of malignant neoplasm of tongue; J44.9 Chronic obstructive pulmonary disease, unspecified; I25.10 Atherosclerotic heart disease of native coronary artery without angina pectoris; E78.5 Hyperlipidemia, unspecified; Z86.73 Personal history of transient ischemic attack (TIA), and cerebral infarction without residual deficits; Z87.891 Personal history of nicotine dependence; Z79.899 Other long term (current) drug therapy
CPT/HCPCS: 43239; 43249; C1726; J2003; J2704; J7120

== ENCOUNTER 2024-11-09 10:05 | Outpatient (CLI) | payer MEDICARE, SELFPAY ==
--- OUTSIDE RECORDS SUMMARY | 2024-11-09 10:08 | XMS_ITS | Clinical Summary ---
Author Organization Healthcare Address [facility] [place] [id number] Care Team Providers Care Plug Sorter Name Role Phone Israel Newby MD Primary Care Provider [phone] Immunizations Immunization Administration Dates Next Due Influenza, Unspecified 03/14/2017 Influenza, seasonal, injectable 02/17/20 15,02/16/2014,04/18/2013, 3 Pneumococcal Polysaccharide PPV23 04/14/2014,05/2013,05/19/2012 Varicella 05/19/2012 Zoster, live 04/18/2013 Family History Medical History Relation Name Comments Stroke Father Asthma Mother Conversions - Other Mother Back pro blem Conversions - Other Sister Murder Relation Name Status Comments Father Mother Sister Social History Tobacco Use Types Packs/Day Years Used Date Smoking Tobacco: Former Sex and Gender Information Value Date Recorded Sex Assigned at Not on file Legal Sex Male 8:24 PM EDT Gender Identity Not on file Sexual Orientation Not on file Last Filed Vital Signs Vital Sign Reading Time Taken Comments Blood Pressure 115/60 11/12/2019 3:46 PM EDT Pulse 77 11/12/2019 3:46 PM EDT Temperature 36.4 C (97.5 F) 02/09/2019 1:19 PM EDT Respiratory Rate 16 02/09/2019 1:19 PM EDT Oxygen Saturation - - Inhaled Oxygen Concentration - - Weight 72.2 kg (159 lb 2.8 oz) 11/12/2019 3:46 P M EDT Height 177.8 cm (5' 10 ) 11/12/2019 3:46 PM EDT Body Mass Index 22.84 11/12/2019 3:46 PM EDT Plan of Treatment Health Maintenance Due Date Last Done Comments [facility]-Depression Screening 1945 [facility]-/Child/Adol SDOH Screenings 1945 [facility]- SDOH Screenings 12/07/1961 [facility]-Adult SDOH Screenings 12/07/1961 [facility]-DTaP,Tdap,and Td Vaccines (1 - Tdap) 12/07/1962 [facility]-RSV Vaccine: 60+ Years or (1 - 1-dose 75+ series) 12/07/2018 [facility]-Zoster Vaccines (3 of 3) 08/10/2020 06/15/2020, 04/18/2013, 05/19/2012 [id number] Vaccine (3 - 2023- season) 2024 07/20/2020, 06/22/2020 [facility]-Influenza Vaccine (Season Ended) 2025 01/27/2020, 01/26/2019, 04/24/2018, Additional history exists [facility]-Hepatitis A Vaccines Aged Out 03/20/2018 No longer eligible based on patient's age to complete this topic [facility]-Pneumococcal Vaccine: 50+ Years Completed 06/15/2020, 04/14/2014, 05/19/2013, Additional history exists HPV Vaccines Aged Out No longer eligi ble based on patient's age to complete this topic [facility]-HIB Vaccines Aged Out No longer e ligible based on patient's age to complete this topic [facility]-IPV Vaccines Aged Out No longer e ligible based on patient's age to complete this topic [facility]-Rotavirus Vaccines Aged Out No lo nger eligible based on patient's age to complete this topic Insurance [place] MEDIC[place] Care Teams Plug Sorter Relationship Specialty Start Date End Date Israel Newby MD [address] [place] [address] [address]1 [id number] Cooper [id number] PCP - General 09/29/20
--- OUTSIDE RECORDS SUMMARY | 2024-11-09 10:08 | XMS_ITS | Data Portability ---
Author Organization [facility] LAURA Salguero GODLEY CLOSED Address [address] [place] [address] Assessment No assessment recorded. Plan of Treatment Reminders Order Date Submit Date Provider Last Modified By Organization Details Last Modified Time Details Appointments None recorded. Lab urinalysis panel, auto [address] [facility], [address], [place], [address], 3 20:50:52 urinalysis panel, auto [address] [facility], [address], [place], [address], 3 15:00:15 Referral None recorded. Procedures None recorded. Surgeries cystoscopy, flexible (SURG) 2022 023 [email or web address] [facility] Professional Charges, [address] [facility] [address], [place], [address], 3 15:56:21 Imaging None recorded. Medication Orders sildenafil (pulmonary hypertensio n) 20 mg tablet 2022 023 [facility], [address], [place], [address], 3 20:51:00 tamsulosin 0.4 mg capsule 2022 023 AD[facility], [address], [place], [address], 15:01:21 Patient TargetsNo targets recorded. Patient InstructionsNo instructions recorded. Reason for Referral None Reported. Results Created Date Observation Date Name Description Value Unit Range Abnormal Flag Note LastModifiedBy Organization Detail LastModifiedTime 10/01/1909/30/2022 urina lysis panel , auto Unknown Analyte Clean Catch Not Available [facility] [address], [place], [address], 09/30/2022 14:45:27 10/01/19 23 09/30/2022 urina lysis panel , auto Unknown Analyte Yellow Not Available [facility] [address], [place], [address], 09/30/2022 14:45:27 10/01/19 23 09/30/2022 urina lysis panel , auto Unknown Analyte Clear Not Available [facility] [address], [place], [address], 09/30/2022 14:45:27 10/01/19 23 09/30/2022 urina lysis panel , auto Unknown Analyte 1.010 Not Available [facility] [address], [place], [address], 09/30/2022 14:45:27 10/01/19 23 09/30/2022 urina lysis panel , auto Unknown Analyte 1.003- 1.035 Not Available [facility] [address], [place], [address], 09/30/2022 14:45:27 10/01/19 23 09/30/2022 urina lysis panel , auto Unknown Analyte 7.0 Not Available [facility] [address], [place], [address], 09/30/2022 14:45:27 10/01/19 23 09/30/2022 urina lysis panel , auto Unknown Analyte 5.0-8. 0 Not Available [facility] [address], [place], [address], 09/30/2022 14:45:27 10/01/19 23 09/30/2022 urina lysis panel , auto Unknown Analyte Negati ve Not Available [facility] [address], [place], [address], 09/30/2022 14:45:27 10/01/19 23 09/30/2022 urina lysis panel , auto Unknown Analyte Negati ve Not Available [facility] [address], [place], [address], 09/30/2022 14:45:27 10/01/19 23 09/30/2022 urina lysis panel , auto Unknown Analyte Negati ve Not Available [facility] [address], [place], [address], 09/30/2022 14:45:27 10/01/19 23 09/30/2022 urina lysis panel , auto Unknown Analyte Negati ve Not Available [facility] [address], [place], [address], 09/30/2022 14:45:27 10/01/19 23 09/30/2022 urina lysis panel , auto Unknown Analyte Negati ve Not Available [facility] [address], [place], [address], 09/30/2022 14:45:27 10/01/19 23 09/30/2022 urina lysis panel , auto Unknown Analyte Negati ve Not Available [facility] [address], [place], [address], 09/30/2022 14:45:27 10/01/19 23 09/30/2022 urina lysis panel , auto Unknown Analyte Normal Not Available [facility] [address], [place], [address], 09/30/2022 14:45:27 10/01/19 23 09/30/2022 urina lysis panel , auto Unknown Analyte Normal Not Available [facility] [address], [place], [address], 09/30/2022 14:45:27 10/01/19 23 09/30/2022 urina lysis panel , auto Unknown Analyte Negati ve Not Available [facility] [address], [place], [address], 09/30/2022 14:45:27 10/01/19 23 09/30/2022 urina lysis panel , auto Unknown Analyte Negati ve Not Available [facility] [address], [place], [address], 09/30/2022 14:45:27 10/01/19 23 09/30/2022 urina lysis panel , auto Unknown Analyte Normal Not Available [facility] [address], [place], [address], 09/30/2022 14:45:27 10/01/19 23 09/30/2022 urina lysis panel , auto Unknown Analyte Normal 1 mg/dl Not Available [facility] [address], [place], [address], 09/30/2022 14:45:27 10/01/19 23 09/30/2022 urina lysis panel , auto Unknown Analyte Negati ve Not Available [facility] [address], [place], [address], 09/30/2022 14:45:27 10/01/19 23 09/30/2022 urina lysis panel , auto Unknown Analyte Negati ve Not Available [facility] [address], [place], [address], 09/30/2022 14:45:27 10/01/19 23 09/30/2022 urina lysis panel , auto Unknown Analyte Negati ve Not Available [facility] [address], [place], [address], 09/30/2022 14:45:27 10/01/19 23 09/30/2022 urina lysis panel , auto Unknown Analyte Negati ve Not Available [facility] [address], [place], [address], 09/30/2022 14:45:27 11/19/19 23 11/18/2022 urina lysis panel , auto Unknown Analyte Clean Catch Not Available [facility] [address], [place], [address], 11/18/2022 13:51:09 11/19/19 23 11/18/2022 urina lysis panel , auto Unknown Analyte Yellow Not Available [facility] [address], [place], [address], 11/18/2022 13:51:09 11/19/19 23 11/18/2022 urina lysis panel , auto Unknown Analyte Clear Not Available [facility] [address], [place], [address], 11/18/2022 13:51:09 11/19/19 23 11/18/2022 urina lysis panel , auto Unknown Analyte 1.010 Not Available [facility] [address], [place], [address], 11/18/2022 13:51:09 11/19/19 23 11/18/2022 urina lysis panel , auto Unknown Analyte 1.003- 1.035 Not Available [facility] [address], [place], [address], 11/18/2022 13:51:09 11/19/19 23 11/18/2022 urina lysis panel , auto Unknown Analyte 7.0 Not Available [facility] [address], [place], [address], 11/18/2022 13:51:09 11/19/19 23 11/18/2022 urina lysis panel , auto Unknown Analyte 5.0-8. 0 Not Available [facility] [address], [place], [address], 11/18/2022 13:51:09 11/19/19 23 11/18/2022 urina lysis panel , auto Unknown Analyte Negati ve Not Available [facility] [address], [place], [address], 11/18/2022 13:51:09 11/19/19 23 11/18/2022 urina lysis panel , auto Unknown Analyte Negati ve Not Available [facility] [address], [place], [address], 11/18/2022 13:51:09 11/19/19 23 11/18/2022 urina lysis panel , auto Unknown Analyte Negati ve Not Available [facility] [address], [place], [address], 11/18/2022 13:51:09 11/19/19 23 11/18/2022 urina lysis panel , auto Unknown Analyte Negati ve Not Available [facility] [address], [place], [address], 11/18/2022 13:51:09 11/19/19 23 11/18/2022 urina lysis panel , auto Unknown Analyte Negati ve Not Available [facility] [address], [place], [address], 11/18/2022 13:51:09 11/19/19 23 11/18/2022 urina lysis panel , auto Unknown Analyte Negati ve Not Available [facility] [address], [place], [address], 11/18/2022 13:51:09 11/19/19 23 11/18/2022 urina lysis panel , auto Unknown Analyte Normal Not Available [facility] [address], [place], [address], 11/18/2022 13:51:09 11/19/19 23 11/18/2022 urina lysis panel , auto Unknown Analyte Normal Not Available [facility] [address], [place], [address], 11/18/2022 13:51:09 11/19/19 23 11/18/2022 urina lysis panel , auto Unknown Analyte Negati ve Not Available [facility] [address], [place], [address], 11/18/2022 13:51:09 11/19/19 23 11/18/2022 urina lysis panel , auto Unknown Analyte Negati ve Not Available [facility] [address], [place], [address], 11/18/2022 13:51:09 11/19/19 23 11/18/2022 urina lysis panel , auto Unknown Analyte Normal Not Available [facility] [address], [place], [address], 11/18/2022 13:51:09 11/19/19 23 11/18/2022 urina lysis panel , auto Unknown Analyte Normal 1 mg/dl Not Available [facility] [address], [place], [address], 11/18/2022 13:51:09 11/19/19 23 11/18/2022 urina lysis panel , auto Unknown Analyte Negati ve Not Available [facility] [address] [facility] [address], [place], [address], 11/18/2022 13:51:09 11/19/19 23 11/18/2022 urina lysis panel , auto Unknown Analyte Negati ve Not Available [facility] [address] [facility] [address], [place], [address], 11/18/2022 13:51:09 11/19/19 23 11/18/2022 urina lysis panel , auto Unknown Analyte Negati ve Not Available [facility] [address] [facility] [address], [place], [address], 11/18/2022 13:51:09 11/19/19 23 11/18/2022 urina lysis panel , auto Unknown Analyte Negati ve Not Available [facility] [address] [facility] [address], [place], [address], 11/18/2022 13:51:09 Result Notes None recorded. Problems No Known Problems Medical Equipment None Reported. Allergies No known drug allergies Medications Name Sig Start Date Stop Date Status Note LastModified by Organization Details LastModified Time lisinopril 20 mg tablet Daily 09/30 completed Frequ ency: daily ;Medi catio n Descr iptio n: lisin opril ; Dosag e:1; Route :oral ; refil ls:0 Not Available Not Available Not Available tamsulosin 0.4 mg capsule Take 1 capsule every day by oral route. 2022 active Not Available Not Available Not Avai lable Advair Diskus 500 mcg-50 mcg/dose powder for inhalation Two times a day 09/30 completed Frequ ency: bid;M edica tion Descr iptio n: fluti jonatan e-meaghan meter ol; Dosag e:1 inhal ation ; Route :inha latio n; refil ls:0 Not Available Not Available Not Available ipratropium bromide 0.02 % solution for inhalation As Directed 09/30 completed Frequ ency: as direc t.;Nm dicat ion Descr iptio n: iprat ropiu m; Route :inha latio n; refil ls:0 Not Available Not Available Not Available Spiriva with HandiHaler 18 mcg and inhalation capsules Daily 09/30 completed Frequ ency: daily ;Medi catio n Descr iptio n: tiotr opium ; Route :inha latio n; refil ls:0 Not Available Not Available Not Available sildenafil (pulmonary hypertensio n) 20 mg tablet Take by oral route for 12 days. 2022 active Not Available Not Available Not Avai lable Xopenex As needed 09/30 completed Frequ ency: prn;M edica tion Descr iptio n: leval buter ol; Route :inha latio n; refil ls:0 Not Available Not Available Not Available Vitals Date Recorded Body height Body mass index (BMI) Body weight Provider Name and Address Organization Details Last Updated DateTime 09/30/2022 177.8 cm 26.5 kg/m2 78079.59 g Moriah Cleveland [facility] 09/30/2022 14:43:01 Date Recorded Body height Provider Name an d Address Organization Details Last Updated DateTime 11/18/2022 177.8 cm Moriah Cleveland [facility] 0 11/18/2022 13:51:55 Social History Question Answer Notes LastModified by Organizat ion Details LastModified Time Tobacco Smoking Status Former Smoker Moriah Cleveland [facility] 09/30/2022 14:45:09 When Did You Quit Smoking? 16+yearssince lastprincess flores Information not available 09/30/2022 What Was The Date Of Your Most Recent Tobacco Screening? 09/30/2022 [email or web address] Information not available 09/30/2022 What Is Your Relationship Status? [email or web address] Information not available 09/30/2022 Have You Recently Traveled Abroad? No [email or web address] Information not available 09/30/2022 Sex: Unknown Functional Status Question Answer Note LastModified by Organizat ion Details LastModified Time Do you use any illicit or recreational drugs? No [email or web address] Information not available 09/30/2022 Do you or have you ever used any other forms of tobacco or nicotine? No [email or web address] Information not available 09/30/2022 Mental Status None recorded. Family History Nothing Reported. Medical History No medical history recorded. Past Encounters Encounter ID Performer Location Encounter Start Date Encounter Closed Date Diagnosis/Indication Diagnosis SNOMED-CT Code Diagnosis ICD10 Code Diagnosis Note [id number] MD [facility] [address] [place], [place] [address] 09/30/2022 13:31:42 09/30/2022 15:01:02 Benign prostatic hyperplasia with outflow obstruction 424193086 N40.1 He will follow-up in 1 month [id number] MD [facility]ONY [facility] [address] [place] [id number] 11/18/2022 12:59:07 11/18/2022 14:35:28 Benign prostatic hyperplasia with outflow obstruction 615979244 N40.1 As above Primary er ectile dysfunction 869014485 N52.9 Health Concerns Section Related Observation LastModified by Organization Detai ls LastModified Time None Recorded Concern Status LastModified by Organization Details LastModified Time None Recorded Advance Directives Directive None Recorded Payers Insurance Date Sequence Insurance Name Policy Number Policy Mcmullen Covered Member ID Mcmullen Member ID Guarantor Name 12/12/2022 1 BCBS-ANJU[place] (MEDICARE REPLACEMENT HMO) [id number] Bebeto Mari [id number] Bebeto Sher [place] 09/30/2022 1 *SELF PAY* Ancelmo Sher Wornyoan 12/12/2022 2 MEDICAID-PSYCHIATRIC CHOICES - FFS/TRADITIONA L Bebeto Mari [id number] Bebeto Mari Notes Date Note Type Note Provider Name and Address Organization Details Recorded Time 09/30/2022 text/html Patient is here to establish urologic care. He has previously seen Dr. Bates in [place]. His main complaint is urgency at night. He awakens 2 or 3 times at night and often has some incontinence. During the daytime he voids 5 or 6 times. He has no major issues during the daytime. He had previously taken tamsulosin but is not currently taking it. We discussed restarting it. He had a PSA in Dr. Newby's office and we are getting those results. SONAM BRISCOE [place], [address], [facility] 09/30/2022 15:02:03 11/18/2022 text/html Patient saw me initially in mid September. He has seen Dr. Bates in [place]. He complains of urinary urgency at night with nocturia 2-3 times. He often had some episodes of incontinence. I started him back on tamsulosin and unfortunately symptoms have not improved dramatically. We discussed arranging for flexible local cystoscopy for further evaluation of treatment options. He also mention difficulty achieving and maintaining an adequate erection. We discussed medical therapy as well as timing of dosage. SONAM [facility]ISCOE [facility] [place], [address], [facility] 11/28/2022 20:51:19
--- NOTE | 2024-11-09 10:15 | CT_ITS ---
FINAL REPORT TECHNIQUE: Axial CT with contrast with 3-D MIP reconstruction This study was performed with techniques to keep radiation doses as low as reasonably achievable, (ALARA). Individualized dose reduction techniques using automated exposure control or adjustment of mA and/or kV according to the patient's size were employed. CLINICAL HISTORY: history of cancer COMPARISON: 05/07/2024 FINDINGS: Pulmonary vessels enhance in normal fashion without evidence of embolism. Thoracic aorta shows no dissection or aneurysm. There are stable tiny nodules in the left upper lobe best seen on image #26. There is atelectasis present on today's exam in the region of the left lower lobe nodule. There is bilateral AP window adenopathy which is also stable, and considered likely benign reactive. No large lymph nodes are present. There are mild chronic interstitial changes in the lung bases. There is mild benign esophageal wall thickening noted. There is no significant pleural effusion. There is no significant pericardial effusion. IMPRESSION: 1. Stable chronic findings, considered benign. No evidence of metastatic disease. Reviewed, Interpreted and Dictated by Gurinder Lui MD Transcribed by Estefanía Champagne Authenticated and [facility]
--- NOTE | 2024-11-09 10:15 | CT_ITS ---
FINAL REPORT TECHNIQUE: Oral and IV contrast enhanced exam This study was performed with techniques to keep radiation doses as low as reasonably achievable, (ALARA). Individualized dose reduction techniques using automated exposure control or adjustment of mA and/or kV according to the patient's size were employed. CLINICAL HISTORY: histtory of cancer COMPARISON: Report from 07/29/2019 FINDINGS: Abdomen: The gallbladder is unremarkable. Liver has an unremarkable CT appearance. The spleen, pancreas and kidneys are unremarkable. Bilateral adrenal nodules are present, stable in size and appearance since the prior CT examination. No bowel obstruction or fluid collection is seen. There is severe diverticulosis of the left lung without evidence of acute inflammatory change. Pelvis: The appendix is normal. Pelvic bowel loops are unremarkable, other than diverticulosis of the sigmoid colon. No fluid collection or adenopathy is seen. There is a chronic compression fracture of L1. There is a nonspecific lucent lesion in the left L4 vertebral body measuring 7 mm in size. IMPRESSION: 1. Stable bilateral adrenal nodules, favor adenomas. 2. No convincing evidence of metastatic disease. 3. Nonspecific lucent lesion in the left L4 vertebral body, 7 mm in size, if desired follow-up MRI with and without contrast could be performed. Reviewed, Interpreted and Dictated by Gurinder Lui MD Transcribed by Estefanía Champagne Authenticated and [facility]
[2024-11-09] MEDS: SODIUM CHLORIDE 0.9% 10ML SYR (RAD ONLY) 10 ML IV (10:40)
[2024-11-09] MEDS: IOPAMIDOL-370 (76%);100ML BOTTLE 75 ML IV (10:40)
== END 2024-11-09 23:59 | disposition home or self-care (01) ==
LOC: RAD 10:06
PROVIDERS: PCP Family Medicine; Visit Provider Internal Medicine Medical Oncology
DX: R93.89 Abnormal findings on diagnostic imaging of other specified body structures (principal); R93.5 Abnormal findings on diagnostic imaging of other abdominal regions, including retroperitoneum; Z85.810 Personal history of malignant neoplasm of tongue
CPT/HCPCS: 71260; 74177; Q9967

== ENCOUNTER 2025-01-10 15:30 | Outpatient (CLI) | payer MEDICARE, SELFPAY ==
--- OUTSIDE RECORDS SUMMARY | 2025-01-10 15:33 | XMS_ITS ---
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 Past Treatment and Therapy Plans No past plan information found. Lifetime Dose Tracking * Chemical Lifetime Dose Automatic Entry Manual Entr y Cumulative Air Kerma 375 mGy 0 mGy 375 mGy
--- OUTSIDE RECORDS SUMMARY | 2025-01-10 15:33 | XMS_ITS | Clinical Summary ---
[facility] Address [address] [place] [address] Care Team Providers Care Rougher Helper Name Role Phone Israel Newby MD Primary Care Provider [phone] Allergies No known active allergies Medications levalbuterol (XOPENEX HFA) 45 MCG/ACT inhaler Inhale 1-2 puffs Every 4 (Four) Hours As Needed for Wheezing. Active losartan (COZAAR) 25 MG tablet Take 25 mg by mouth Daily. Active Multiple Vitamins-Minera ls (PRESERVISION AREDS 2 PO) Take 1 tablet by mouth 2 (Two) Times a Day. Active umeclidinium-vi lanterol (ANORO ELLIPTA) 62.5-25 MCG/INH aerosol powder inhaler Inhale 1 puff Daily. Active aspirin 81 MG EC tablet Take 81 mg by mouth Daily. Active Multiple Vitamins-Minera ls (MULTIVITAMIN PO) Take 1 tablet by mouth Daily. Active Probiotic Product (PROBIOTIC PO) Take 1 capsule by mouth Daily. Active atorvastatin (LIPITOR) 80 MG tablet Take 1 tablet by mouth Every Night. 30 tablet 3 9 Active clopidogrel (PLAVIX) 75 MG tablet Take 1 tablet by mouth Daily. 30 tablet 3 9 Active traZODone (DESYREL) 100 MG tablet Take 100 mg by mouth Every Night. Active tadalafil (ADCIRCA) 20 MG tablet tablet Take 40 mg by mouth Daily. Active diazePAM (VALIUM) 5 MG tablet Take 5 mg by mouth At Night As Needed for Anxiety or Sleep. Active temazepam (RESTORIL) 30 MG capsule Take 30 mg by mouth At Night As Needed for Sleep. Active dronabinol (Marinol) 10 MG capsuleIndicati ons:Cancer of base of tongue Take 1 capsule by mouth 2 (Two) Times a Day Before Meals. 60 capsule 0 Active Isopto Atropine 1 % ophthalmic solution 1 Active oxybutynin XL (DITROPAN-XL) 5 MG 24 hr tablet 0 Active diclofenac (VOLTAREN) 0.1 % ophthalmic solution INSTILL 1 DROP INTO RIGHT EYE TWICE DAILY NEEDED FOR PAIN 1 Active gabapentin (NEURONTIN) 100 MG capsule TAKE 1 CAPSULE BY MOUTH ONCE DAILY FOR 30 DAYS 1 Active levalbuterol (XOPENEX) 0.63 MG/3ML nebulizer solution USE 1 IN NEBULIZER THREE TIMES DAILY NEEDED FOR SHORTNESS OF BREATH FOR WHEEZING 1 Active prednisoLONE acetate (PRED FORTE) 1 % ophthalmic suspension INSTILL 1 DROP INTO RIGHT EYE TWICE DAILY 1 Active sildenafil (REVATIO) 20 MG tablet 1 Active Trelegy Ellipta 200-62.5-25 MCG/INH inhaler Inhale 1 puff Daily. 2 Active omeprazole (priLOSEC) 40 MG capsule Take 40 mg by mouth Daily. 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, right 03/17/2019 Overview (03/17/2019): Added automatically from request for surgery [id number] Acute ischemic right MCA stroke 01/25/2019 Diabetes mellitus 01/25/2019 Hypertension 01/25/2019 Hyperlipidemia 01/25/2019 Cancer of base of tongue 07/23/2018 Cancer Staging:Clinical stage from 06/29/2018:Stage DILLON(cT1, cN2, cM0, p16: Negative) - Signed by Kennedy De León MD on 07/23/2018 CAD (coronary artery disease) 07/23/2018 Stenosis of right carotid artery 07/07/2018 COPD (chronic obstructive pulmonary disease) Immunizations Immunization Administration Dates Next Due COVID-19 (MODERNA) 1st,2nd,3rd Dose Monovalent 0 07/20/2020,06/22/2020 COVID-19 (MODERNA) Monovalent Original Booster 0 08/22/2021,03/13/2021 Fluzone >6mos 01/27/2020 Fluzone High-Dose 65+YRS 04/24/2018 Pneumococcal Conjugate 13-Valent (PCV13) 021 Shingrix 06/15/2020 Tdap 08/22/2021 Family History Medical History Relation Name Comments Lung cancer Father Stroke Father No Known Problems Mother Relation Name Status Comments Father Mother Alive Social History Tobacco Use Types Packs/Day Years Used Date Smoking Tobacco: Former Cigarettes 1 30 0 01/07/1968 - 01/06/1998 Smokeless Tobacco: Never Comments:y-year Alcohol Use Standard Drinks/Week Comments No 0 (1 standard drink = 0.6 oz pur e alcohol) AUDIT-C Answer Date Recorded Q1: How often do you have a drink containing alc ohol? Never 07/13/2020 Average Number of Drinks Not on file Frequency of Binge Drinking Not on file 06/20 Abuse Screen Answer Date Recorded Unsafe at Home or Work/School Not on file Feels Threatened by Someone? Not on file 03/2023 Does Anyone Keep You from Co ntacting Others or Doint Things Outside the Home? Not on file 02/26/2023 Physical Sign of Abuse Present Not on file 1 Housing Stability Answer Date Recorded Current Living Arrangements Not on file 02/16 Potentially Unsafe Housing Conditions Not on socorro e 02/26/2023 Family and Community Support Answer Joseph e Recorded Help with Day-to-Day Activities Not on file 02/26/2023 Lonely or Isolated Not on file 02/26/2023 Employment Answer Date Recorded Do you want help finding or keeping work or a dennis b? Not on file 02/26/2023 Disabilities Answer Date Recorded Concentrating, Remembering, or Making Decisions Difficulty Not on file 02/26/2023 Doing Errands Independently Difficulty Not on fi le 02/26/2023 Education Answer Date Recorded Help with school or training? 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 Not on file Not on file Last Filed Vital Signs Vital Sign Reading Time Taken Comments Blood Pressure 196/86 01/16/2022 2:52 PM EDT states did not take B/P med today-will take when home Pulse 59 01/16/2022 2:52 PM EDT Temperature 36.6 C (97.8 F) 01/16/2022 2:52 PM EDT Respiratory Rate 18 01/16/2022 2:52 PM EDT Oxygen Saturation 94% 01/16/2022 2:5 2 PM EDT Inhaled Oxygen Concentration - - Weight 82.6 kg (182 lb) 12/02/2022 9:58 AM EDT Height 172.7 cm (5' 8 ) 12/02/2022 9:58 AM EDT Body Mass Index 27.67 12/02/2022 9:58 AM EDT Plan of Treatment Health Maintenance Due Date Last Done Comments DIABETIC EYE EXAM 12/07/1955 DIABETIC FOOT EXAM 12/07/1955 URINE MICROALBUMIN-CREATININ E RATIO (uACR) 12/07/1953 COLOGUARD 12/07/1988 COLON CANCER SCREENING 5 YEA R SIGMOIDOSCOPY 12/07/1988 COLONOSCOPY 12/07/1988 COLORECTAL CANCER SCREENING 12/07/1988 CT COLONOGRAPHY 12/07/1988 FECAL OCCULT BLOOD TEST 12/07/1988 FIT Testing (1 year) 12/07/1988 ANNUAL WELLNESS VISIT 01/29/2017 FRONT OFFICE SPECIALIST PLAN OF CARE 10/27/2018 07/29/2018 RSV Vaccine - Adults (1 - 1- dose 75+ series) 12/07/2018 HEMOGLOBIN A1C 07/27/2019 01/26/2019 LIPID PANEL 01/27/2020 01/26/2019 Pneumococcal Vaccine 50+ (2 of 2 - PPSV23) 08/10/2020 06/15/2020 ZOSTER VACCINE (2 of 2) 08/10/2020 06/15/2020 COVID-19 Vaccine (2023-2 5 season) 2024 02/14/2022, 08/22/2021, 03/13/2021, Additional history exists INFLUENZA VACCINE 02/16/2025 02/14/2022, , 04/24/2018 TDAP/TD VACCINES (2 - Td or Tdap) 08/23/2031 022 LUNG CANCER SCREENING Discontinued 12/10/2022 , 01/16/2022, 02/07/2021, Additional history exists Procedures Procedure Name Priority Date/Time Associated Diagnosis Comments CT CHEST W CONTRAST Routine 12/10/2022 2 :10 PM EDT Cancer of base of tongue HEMOGLOBIN A1C Routine 01/26/2019 4:27 AM EDT LIPID PANEL Routine 01/26/2019 4:27 AM EDT from Last 3 Months or Most Recently Relevant to Health Maintenance Results * CT Chest With Contrast Diagnostic (12/10/2022 2:10 PM EDT) Anatomical Region Laterality Modality Chest N/A Computed Tomogra phy 12/10/2022 2:26 PM EDT Impressions 12/10/2022 2:46 PM EDT Impression: Stable CT appearance of the neck and chest, without evidence of recurrent or metastatic disease. No evidence of new worrisome cervical adenopathy, aerodigestive tract mass or pulmonary nodularity. Electronically Signed: Jerrell Santiago 12/10/2022 2:46 PM EDT Workstation ID: [id number] Narrative 12/10/2022 2:[address] SOFT TISSUE NECK W CONTRAST, CT CHEST W CONTRAST DIAGNOSTIC Date of Exam: 12/10/2022 1:53 PM EDT Indication: Base of tongue cancer, post chemoradiation, Annual surveillance. Comparison: 01/16/2022. Technique: Axial CT images were obtained of the neck and chest after the uneventful intravenous administration of 98 mL Isovue-300. Reconstructed coronal and sagittal images were also obtained. Automated exposure control and iterative construction methods were used. Findings: CT neck: Limited intracranial valuation demonstrates no acute findings. The globes are symmetric and the orbits appear normal. The paranasal sinuses are clear. The parotid and submandibular glands appear normal and symmetric. 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 No distinct pathologic cervical lymphadenopathy is present, with several stable small lymph nodes including a 5 mm right level 2A lymph node. There is no evidence of recurrent aerodigestive tract mass or other focal luminal irregularity. The osseous structures demonstrate multilevel spondylosis, without evidence of fracture or aggressive osseous lesion. CT CHEST: There is no pathologic axillary adenopathy or other worrisome body wall soft tissue finding in the chest. No acute findings are present in the partially characterized upper abdomen, with a stable right adrenal nodule present. There is no pleural or pericardial effusion. There is no pathologic mediastinal adenopathy. Atherosclerotic, nonaneurysmal thoracic aorta. The visualized central pulmonary arteries are patent. The osseous structures demonstrate some areas of chronic rib fracture and thoracic spondylosis, without evidence of new aggressive osseous lesion. The lung gibbs demonstrate no evidence of acute infectious process or distinct suspicious pulmonary nodularity, with some stable mild interstitial/fibrotic changes present at the lung bases. Procedure Note Jesse Santiago MD - 12/10/2022 CT SOFT TISSUE NECK W CONTRAST, CT CHEST W CONTRAST DIAGNOSTIC Date of Exam: 12/10/2022 1:53 PM EDT Indication: Base of tongue cancer, post chemoradiation, Annualsurveillance. Comparison: 01/16/2022. Technique: Axial CT images were obtained of the neck and chest after theuneventful intravenous administration of 98 mL Isovue-300. Reconstructedcoronal and sagittal images were also obtained. Automated exposure controland iterative construction methods were used. Findings: CT neck: Limited intracranial valuation demonstrates no acute findings.The globes are symmetric and the orbits appear normal. The paranasalsinuses are clear. The parotid and submandibular glands appear normal andsymmetric. 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 Nodistinct pathologic cervical lymphadenopathy is present, with severalstable small lymph nodes including a 5 mm right level 2A lymph node. Thereis no evidence of recurrent aerodigestive tract mass or other focal luminal irregularity. The osseous structuresdemonstrate multilevel spondylosis, without evidence of fracture oraggressive osseous lesion. CT CHEST: There is no pathologic axillary adenopathy or other worrisomebody wall soft tissue finding in the chest. No acute findings are presentin the partially characterized upper abdomen, with a stable right adrenalnodule present. There is no pleural or pericardial effusion. There is no pathologic mediastinaladenopathy. Atherosclerotic, nonaneurysmal thoracic aorta. The visualizedcentral pulmonary arteries are patent. The osseous structures demonstratesome areas of chronic rib fracture and thoracic spondylosis, without evidence of new aggressive osseous lesion.The lung gibbs demonstrate no evidence of acute infectious process ordistinct suspicious pulmonary nodularity, with some stable mildinterstitial/fibrotic changes present at the lung bases. IMPRESSION: Impression: Stable CT appearance of the neck and chest, without evidence of recurrentor metastatic disease. No evidence of new worrisome cervical adenopathy, aerodigestive tract massor pulmonary nodularity. Electronically Signed: Jerrell Santiago 12/10/2022 2:46 PM EDT Workstation ID: [id number] Kennedy De León MD IMG CT ORDERABLES Fi nal Result * Hemoglobin A1c (01/26/2019 4:27 AM EDT) Hemoglobin A1C 4.90 4.80 - 5.60 % 01/26/2019 6:54 AM EDT [facility] Blood Venipuncture / Unknown 01/26/2019 4:27 AM EDT 01/26/2019 6:22 AM EDT Narrative [facility] - 01/26/2019 6:54 AM EDT Hemoglobin A1C Ranges: Increased Risk for Diabetes 5.7% to 6.4% Diabetes >= 6.5% Diabetic Goal < 7.0% Cesario Garrett MD LAB BLOOD ORDERABLES Final Res ult [facility]
[address] [place] [address], * (ABNORMAL) Lipid Panel (01/26/2019 4:27 AM EDT) Total Cholesterol 91 0 - 200 mg/dL 01/26/2019 6:56 AM EDT [facility] Triglycerides 95 0 - 150 mg/dL 01/26/2019 6:56 AM EDT [facility] HDL Cholesterol 35(L) 40 - 60 mg/dL 01/26/2019 6:56 AM EDT [facility] LDL Cholesterol 37 0 - 100 mg/dL 01/26/2019 6:56 AM EDT [facility] VLDL Cholesterol 19 mg/dL 01/27/20 19 6:56 AM EDT [facility] LDL/HDL Ratio 1.06 01/26/2019 6:56 AM T [facility] Blood Venipuncture / Unknown 01/26/2019 4:27 AM EDT 01/26/2019 6:22 AM EDT Narrative [facility] - 01/26/2019 6:56 AM EDT Cholesterol Reference Ranges (U.S. Department of Health and Human Services ATP III Classifications) Desirable <200 mg/dL Borderline High 200-239 mg/dL High Risk >240 mg/dL Triglyceride Reference Ranges (U.S. Department of Health and Human Services ATP III Classifications) Normal <150 mg/dL Borderline High 150-199 mg/dL High 200-499 mg/dL Very High >500 mg/dL HDL Reference Ranges (U.S. Department of Health and Human Services ATP III Classifcations) Low <40 mg/dl (major risk factor for CHD) High >60 mg/dl ('negative' risk factor for CHD) LDL Reference Ranges (U.S. Department of Health and Human Services ATP III Classifcations) Optimal <100 mg/dL Near Optimal 100-129 mg/dL Borderline High 130-159 mg/dL High 160-189 mg/dL Very High >189 mg/dL Cesario A Given MD LAB BLOOD ORDERABLES Final Res ult [facility]
[address] [place] [address], from Last 3 Months or Most Recently Relevant to Health Maintenance Insurance MEDICAID [facility] MEDICARE ADVANTAGE Advance Directives * CPR (Attempt to Resuscitate) (Latest Code Status on File) Date Activated Date Inactivated Comments 01/25/2019 2:59 PM 01/26/2019 3:53 PM Question Answer Comments Code Status (Patient has no pulse and is not breathing): CPR (Attempt to Resuscitate) Medical Interventions (Patie nt has pulse or is breathing): Full Level Of Support Discussed With: Patient Care Teams Rougher Helper Relationship Specialty Start Date End Date Israel Newby MD [address] [place] [address] PCP - General Family Medicine 01/10/17
--- OUTSIDE RECORDS SUMMARY | 2025-01-10 15:33 | XMS_ITS | Clinical Summary ---
Author Organization Healthcare Address [address] [place] [address] Care Team Providers Care Floral Specialist Name Role Phone Israel Newby MD Primary Care Provider [phone] Encounters Date Type Department Care Team Description 11/17/2024 [facility] [address] [place] [address] Shiv Deshpande MD Personal history of malignant neoplasm of tongue (Primary Dx); Dysphagia, unspecified type from Last 3 Months Immunizations Immunization Administration Dates Next Due Influenza, [...] SDOH Screenings 12/07/1961 [facility]-Adult SDOH Screenings 12/07/1961 [facility]-RSV Vaccine: 60+ Years or (1 - 1-dose 75+ series) 12/07/2018 [facility]-Zoster Vaccines (3 of 3) 08/10/2020 06/15/2020, 04/18/2013, 05/19/2012 [id number] Vaccine ( - season) 2024 08/22/2021, 03/13/2021, 07/20/2020, Additional history exists [facility]-Influenza Vaccine (#1) 01/17/202501/26, 01/26/2019, 04/24/2018, Additional history exists [facility]-DTaP,Tdap,and Td Vaccines (2 - Td or Tdap) 08/23/2031 08/22/2021 [facility]-Hepatitis A Vaccines Aged Out 03/20/2018 No [...] patient's age to complete this topic Insurance MEDICAID-[place] MEDICARE Care Teams Floral Specialist Relationship Specialty Start Date End Date Israel Newby MD [address] [place] [address] [address] [place] [address] PCP - General 09/29/20
--- OUTSIDE RECORDS SUMMARY | 2025-01-10 15:33 | XMS_ITS | Encounter Summary ---
Author Organization [facility] Address [address] [place] [address] Care Team Providers Care Mortuary Operations Manager Name Role Phone Israel Newby MD Primary Care Provider [phone] Reason for Referral * Consultation (Routine) - Authorized Specialty Diagnoses / Procedures Referred By Pete dove Referred To Contact [facility] Swallow Diagnoses Personal history of malignant neoplasm of tongue Dysphagia, unspecified type Shiv Deshpande MD [address] [place] [address] Phone: tel: fax: Referral ID Status Reason Start Date Expiration Date Visits Requested Visits Authorized [id number] Authorized Specialty Services Required 11/17/2024 05/19/2026 1 1 Encounter Details Date Type Department Care Team (Late st Contact Info) Description 11/17/2024 [facility] [address] [place] [address] Shiv Deshpande MD [address] [facility] [address] [place] [address] Personal history of malignant neoplasm of tongue (Primary Dx); Dysphagia, unspecified type Social History Tobacco Use Types Packs/Day Years Used Date Smoking Tobacco: Former Sex and Gender Information Value Date Recorded Sex Assigned at Not on file Legal Sex Male 8:24 PM EDT Gender Identity Not on file Sexual Orientation Not on file documented as of this encounter Plan of Treatment Scheduled Referrals Name Type Priority Associated Diagnoses Orde r Schedule Ambulatory Referral to [facility] Outpatient Referral Routine Personal history of malignant neoplasm of tongue Dysphagia, unspecified type Expected: 11/17/2024 (Approximate), Expires: 05/21/2026 documented as of this encounter Visit Diagnoses Diagnosis Personal history of malignant neoplasm of tongue- Primary Dysphagia, unspecified type documented in this encounter Care Teams Mortuary Operations Manager Relationship Specialty Start Date End Date Israel Newby MD [address] [place] [address] [address] [place] [address] PCP - General 09/29/20 documented as of this encounter
[2025-01-12 11:13] LABS: PSA, Free 0.78 ng/mL
== END 2025-01-10 23:59 | disposition home or self-care (01) ==
LOC: LAB 15:31
PROVIDERS: PCP Family Medicine; Visit Provider Urology
DX: N40.1 Benign prostatic hyperplasia with lower urinary tract symptoms (principal)
CPT/HCPCS: 36415; 84153; 84154